=== PATIENT | female | born 1930 | race African-American/Black ===

== ENCOUNTER 2017-01-16 09:20 | Inpatient (IN) | payer MEDICARE, OTHER ==
[~2017-01-16] VITALS: Ht 165.1 cm; Wt 54.0 kg
[~2017-01-16 09:20] MED LIST: ACET325T9 PO; AMLO10TA2 PO; BACL10TA PO; CHOL400C2 PO; CRESTOR20 MG PO; DIGO125T PO; DRON400T PO; FENT1PAT17 TP; FERR325T72 PO; FURO20TA3 PO; FURO40TA4 PO; GUAI600T38 PO; Ipratropium/Albuterol Sulfate NEB; LISI-334 PO; OMEP20CA9 PO; PANT40TA5 PO; POTA10CA PO; PRAV40TA2 PO; PREN1TAB46 PO; WARF1TAB7 PO; WARF2TAB PO; WARF3TAB7 PO; WARF5TAB PO
--- NOTE | 2017-01-16 09:48 | PHYS DOC ---
Past Medical History Past Medical History: CHF, High Cholesterol, Hypertension, Stroke Past Surgical History: No Surgical History Alcohol Use: None Drug Use: None Adult General Chief Complaint Chief Complaint: NEURO SYMPTOMS/DEFICITS HPI HPI Patient is a 86 year old female who presents with weakness on the left side. Patient accompanied by family, who reports since Saturday she has been having increasing weakness on her left side which is affecting her mobility. She does have a h/o stroke but her baseline weakness in on her R side. Patient denies any other acute complaints. Review of Systems Review of Systems Constitutional: Denies fever or chills Eyes: Denies change in visual acuity or eye pain HENT: Denies nasal congestion or sore throat Respiratory: Denies cough or shortness of breath Cardiovascular: Denies chest pain GI: Denies abdominal pain, nausea, vomiting, bloody stools or diarrhea : Denies dysuria or hematuria Musculoskeletal: Denies back pain or joint pain Integument: Bed sores Neurologic: L side weakness. Denies headache, sensory changes Allergies Allergies Allergies Coded Allergies Type Severity Reaction Last Updated Verified Penicillins Allergy Intermediate Hives 02/08/15 Yes Physical Exam Physical Exam Constitutional: Well developed, well nourished, no acute distress, non-toxic appearance HENT: Normocephalic, atraumatic, bilateral external ears normal Eyes: PERRL, EOMI, conjunctiva normal, no discharge Neck: Normal range of motion, no stridor Cardiovascular: Heart rate normal, regular rhythm, murmur noted Lungs & Thorax: Bilateral breath sounds clear to auscultation Abdomen: Bowel sounds normal, soft, non-distended, no TTP Skin: Warm, dry Extremities: No obvious deformity, no edema Neurologic: Alert and oriented, GCS 15, R facial droop (baseline), strength in RUE/RLE diminished compared to LUE/LLE, sensation to light touch intact throughout Psychologic: Affect normal, judgement normal, mood normal Current Patient Data Vital Signs Vital Signs Date Time Temp Pulse Resp B/P Pulse Ox O2 Delivery O2 Flow Rate FiO2 01/16/17 10:30 60 16 112/55 100 Room Air 01/16/17 09:30 98.0 98.0 Lab Values Laboratory Tests Test 01/16/17 09:35 01/16/17 10:47 White Blood Count 5.1x10^3/uL (4.0-11.0) Red Blood Count 3.46x10^6/uL (3.50-5.40) L Hemoglobin 9.8g/dL (12.0-15.5) L Hematocrit 29.9% (36.0-47.0) L Mean Corpuscular Volume 86fL (79-100) Mean Corpuscular Hemoglobin 28pg (25-35) Mean Corpuscular Hemoglobin Concent 33g/dL (31-37) Red Cell Distribution Width 20.2% (11.5-14.5) H Platelet Count 215x10^3/uL (140-400) Neutrophils (%) (Auto) 71% (31-73) Lymphocytes (%) (Auto) 16% (24-48) L Monocytes (%) (Auto) 6% (0-9) Eosinophils (%) (Auto) 6% (0-3) H Basophils (%) (Auto) 1% (0-3) Neutrophils # (Auto) 3.6x10^3uL (1.8-7.7) Lymphocytes # (Auto) 0.8x10^3/uL (1.0-4.8) L Monocytes # (Auto) 0.3x10^3/uL (0.0-1.1) Eosinophils # (Auto) 0.3x10^3/uL (0.0-0.7) Basophils # (Auto) 0.0x10^3/uL (0.0-0.2) Platelet Estimate Adequate (ADEQUATE) Poikilocytosis Present Anisocytosis Present Prothrombin Time 35.0SEC (11.7-14.0) H Prothrombin Time INR 3.7 (0.8-1.1) H Sodium Level 145mmol/L (136-145) Potassium Level 4.0mmol/L (3.5-5.1) Chloride Level 106mmol/L (98-107) Carbon Dioxide Level 31mmol/L (21-32) Anion Gap 8 (6-14) Blood Urea Nitrogen 18mg/dL (7-20) Creatinine 2.0mg/dL (0.6-1.0) H Estimated GFR (Cockcroft-Gault) 28.5 BUN/Creatinine Ratio 9 (6-20) Glucose Level 88mg/dL (70-99) Calcium Level 9.3mg/dL (8.5-10.1) Total Bilirubin 0.4mg/dL (0.2-1.0) Aspartate Amino Transferase (AST) 39U/L (15-37) H Alanine Aminotransferase (ALT) 19U/L (14-59) Alkaline Phosphatase 63U/L (46-116) Total Protein 8.1g/dL (6.4-8.2) Albumin 3.5g/dL (3.4-5.0) Albumin/Globulin Ratio 0.8 (1.0-1.7) L Urine Collection Type Unknown Urine Color Yellow Urine Clarity Clear Urine pH 6.5 Urine Specific [place] <=1.005 Urine Protein Negativemg/dL (NEG-TRACE) Urine Glucose (UA) Negativemg/dL (NEG) Urine Ketones (Stick) Negativemg/dL (NEG) Urine Blood Negative (NEG) Urine Nitrite Negative (NEG) Urine Bilirubin Negative (NEG) Urine Urobilinogen Dipstick 0.2mg/dL (0.2 mg/dL) Urine Leukocyte Esterase Negative (NEG) Urine RBC 0/HPF (0-2) Urine WBC 0/HPF (0-4) Urine Squamous Epithelial Cells Few/LPF Urine Bacteria 0/HPF (0-FEW) Urine Hyaline Casts Occasional/HPF Urine Mucus Marked/LPF Laboratory Tests 01/16/17 09:35 Laboratory Tests 01/16/17 09:35 EKG EKG EKG (my read): sinus rhythm, rate 73, LAD, prolonged AK interval, TWI lead I/V2 , no acute ST changes Radiology/Procedures Radiology/Procedures CT head: Impression: No acute intracranial abnormality is seen. CXR: IMPRESSION: 1. Moderate cardiomegaly. 2. Stable aortic ectasia and tortuosity. Course & Med Decision Making Course & Med Decision Making Pertinent Labs and Imaging studies reviewed. (See chart for details) Patient is 86-year-old female who presents with left-sided weakness. Obvious concern for CVA. Well outside window for possible tPA. Will check CT head, chest x-ray, EKG, labs to evaluate. Labs notable for anemia (anemic at baseline) , slight elevation in creatinine over baseline, supratherapeutic INR. Imaging results as above. Discussed results with patient and family. Discussed with Dr. Kelsey (covering for Dr. Rivas), will admit under his care for further evaluation and treatment. Dragon Disclaimer Dragon Disclaimer This electronic medical record was generated, in whole or in part, using a voice recognition dictation system. Departure Departure Impression: Primary Impression: Acute left-sided weakness Disposition: ADMITTED INPATIENT Admitting Physician: Sparkle Kelsey Condition: STABLE Referrals: JOBY RIVAS (PCP) AZRA VALENCIA MD Jan 16, 2017 09:48
[2017-01-16 10:06] LABS: BASO % 1 % (0-3); EOS % 6 % (0-3); HEMATOCRIT 29.9 % (36.0-47.0); HEMOGLOBIN 9.8 g/dL (12.0-15.5); LYMPH # 0.8 x10^3/uL (1.0-4.8); LYMPH % 16 % (24-48); MEAN CORPUSCULAR HEMOGLOBIN 28 pg (25-35); MEAN CORPUSCULAR HGB CONC 33 g/dL (31-37); MEAN CORPUSCULAR VOLUME 86 fL (79-100); MONO % 6 % (0-9); NEUT % 71 % (31-73); PLATELET COUNT 215 x10^3/uL (140-400); RED BLOOD COUNT 3.46 x10^6/uL (3.50-5.40); RED CELL DISTRIBUTION WIDTH 20.2 % (11.5-14.5); WHITE BLOOD COUNT 5.1 x10^3/uL (4.0-11.0)
[2017-01-16 10:13] LABS: CALCIUM 9.3 mg/dL (8.5-10.1); GFR 28.5
[2017-01-16 10:21] LABS: ALBUMIN 3.5 g/dL (3.4-5.0); ALBUMIN/GLOBULIN RATIO 0.8 (1.0-1.7); TOTAL BILIRUBIN 0.4 mg/dL (0.2-1.0); TOTAL PROTEIN 8.1 g/dL (6.4-8.2)
[2017-01-16 10:24] LABS: INR 3.7 (0.8-1.1)
--- NOTE | 2017-01-16 10:35 | EKG ---
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
--- NOTE | 2017-01-16 10:46 | RAD ---
EXAM: Chest one view. HISTORY: Left-sided weakness. COMPARISON: 11/20/2016. FINDINGS: A frontal view of the chest is obtained. There are no confluent infiltrates. There is no pneumothorax or pleural effusion. The heart is mildly enlarged. The aorta is ectatic and tortuous, but not clearly changed in contour since the prior study. There is bilateral rotator cuff arthropathy and glenohumeral osteoarthritis. IMPRESSION: 1. Moderate cardiomegaly. 2. Stable aortic ectasia and tortuosity.
--- NOTE | 2017-01-16 10:47 | RAD ---
CT scan of the head without contrast 01/16/2017 Clinical History: Left-sided weakness.. Technique: Unenhanced, contiguous, 5 mm axial sections were obtained through the head. One or more of the following individualized dose reduction techniques were utilized for this study: 1. Automated exposure control. 2. Adjustment of the mA and/or kV according to patient size. 3. Use of iterative reconstruction technique. Findings: Comparison study is dated 03/25/2011. There is generalized parenchymal atrophy. Small scattered areas of decreased attenuation are seen within the periventricular and subcortical white matter of both cerebral hemispheres consistent with areas of small vessel ischemic disease. An area of encephalomalacia is seen involving the superior right cerebellar hemisphere. This measures 3.2 cm in size. An old area of lacunar infarction is seen involving the left lenticular nucleus. This measures 1.2 cm in size. No acute parenchymal abnormality is seen. No extra-axial fluid collection is noted. Impression: No acute intracranial abnormality is seen.
[2017-01-16 11:00] LABS: ANISOCYTOSIS PRESENT
[2017-01-16 11:01] LABS: POIKILOCYTOSIS PRESENT
[2017-01-16 11:02] LABS: BILIRUBIN,URINE NEGATIVE (NEG); GLUCOSE,URINE NEGATIVE (NEG); NITRITE,URINE NEGATIVE (NEG); PH,URINE 6.5; PROTEIN,URINE NEGATIVE (NEG-TRACE); UROBILINOGEN,URINE 0.2 mg/dL (0.2 mg/dL)
[2017-01-16 11:14] LABS: BACTERIA,URINE 0 /HPF (0-FEW); RBC,URINE 0 /HPF (0-2); SQUAMOUS EPITHELIAL CELL,UR FEW /LPF; WBC,URINE 0 /HPF (0-4)
[2017-01-16 11:17] LABS: PLT ESTIMATE ADEQUATE (ADEQUATE)
[2017-01-16] MEDS ORDERED: ONDANSETRON PF 4 MG/2 ML VIAL. IV PRN (11:45)
[2017-01-16] MEDS ORDERED: ACETAMINOPHEN 325 MG TABLET. PO PRN ×2 (11:45→17:30)
--- NOTE | 2017-01-16 13:39 | ACF ---
Admission Forms Criteria NEUROLOGY GRG Clinical Indications for Admission to Inpatient Care (Place ' X' for any and all applicable criteria): Hospital admission is needed for appropriate care of the patient because of ANY ONE of the following: [ ]I. New-onset or worsening altered mental status remaining after emergency or observation level care (as appropriate) (9)(10)(11) [ ]II. Severe [employer] infections or inflammatory conditions, including ANY ONE of the following(1)(2)(3): [ ]a) Intracranial abscess [ ]b) Spinal abscess or myelitis [ ]c) Tuberculous or other nonbacterial, nonviral [employer] infection(8) [ ]III. Encephalitis(1)(2)(3) [ ]IV. Status epilepticus or repetitive seizures not controlled with emergent treatment [A] (7)(8) [ ]V. Transient alteration in consciousness with high-risk etiology; examples include (12)(13): [ ]a) Cardiovascular source [ ]b) Cataplexy [ ]. Cerebral aneurysm requiring ANY ONE of the following(14): [ ]a) IV antihypertensives or vasoactive agents [ ]b) Sedation and analgesia for suspected leak [ ]c) Need for external ventricular drainage and cerebral perfusion pressure monitoring [ ]d) Emergent evaluation to determine need for surgical clipping or endovascular coiling by interventional radiology. If surgery is required ( Also use Craniotomy, Supratentorial, for Surgery of Bleeding Intracranial Aneurysm (for bleeding aneurysm) or Craniotomy, Supratentorial (for nonbleeding aneurysm) as appropriate. [ ]VII. Altered mental status that is severe or persistent(16) [ ]VIII New-onset severe neurologic findings requiring inpatient care; examples include: [ ]a) Papilledema [ ]b) Cerebral edema [ ]c) Mass effect on imaging [X]IX. New-onset severe neurologic symptom requiring inpatient care indicated by ANY ONE of the following: [ ]a) Aphasia(15) [ ]b) Weakness (grade 3 or less) [ ]c) Paralysis (eg, hemiplegia) [ ]d) Spasticity(16) [ ]e) Ataxia(17) [ ]f) Amnesia(18) [ ]g) Involuntary movements(19) [ ]h) Vertigo [X]i) Other severe neurologic symptom not treatable at alternative level of care (eg, observation care) [ ]X. Guillain-Clinton syndrome(20) [ ]XI. Myasthenia gravis crisis or inpatient monitoring need as indicated by ANY ONE of the following(21): [ ]a) Inadequate airway protection [ ]b) Respiratory insufficiency requiring intubation or inpatient. monitoring [ ]c) Progressive dysphagia with failure to thrive [ ]d) Intensive treatment (eg, course of plasmapheresis) with inadequate outpatient situation to monitor patients status [ ]XII. Multiple sclerosis or other acute demyelinating disease requiring inpatient care as indicated by ANY ONE of the following (22)(23): [ ]a) Acute severe deterioration requiring inpatient treatment (eg, IV steroids, plasmapheresis, close observation) [ ]b) Acute complication requiring inpatient care (eg, sepsis, severe decubitus, aspiration) [ ]XIII. Intracranial hypertension (eg, pseudotumor cerebri) requiring inpatient care (eg, acute visual loss, inadequate oral intake) (24) [ ]XIV.Parkinson disease requiring inpatient care (Also use Optimal Recovery Care Criteria or General Recovery Criteria as appropriate) indicated by ANY ONE of the following(25): [ ]a) Infection (eg, aspiration pneumonia) not treatable at alternative level of care [ ]b) Volume depletion not responsive to emergency and observation care treatment (as appropriate) [ ]c) Life-threatening agitation or psychotic behavior not treatable on emergency, observation care, or alternative level (eg, residential) basis [ ]d) Severe medication withdrawal effects (eg, freezing, neuroleptic malignant syndrome) not responsive to emergency and observation care treatment (as appropriate) [ ]e) Other severe manifestation not treatable at alternative level of care [ ]XV.Amyotrophic lateral sclerosis with inpatient care needs as indicated by ANY ONE of the following(26): [ ]a) Acute complications requiring inpatient care (Use Optimal Recovery Care Criteria or General Recovery Criteria as appropriate); examples include: [ ]i) Aspiration pneumonia [ ]ii) Sepsis [ ]b) Dehydration or hypovolemia (not responsive to emergency and observation care treatment as appropriate) AND artificial support desired [ ]c) Inadequate airway protection AND artificial support desired [ ]d) Severe ventilatory insufficiency AND artificial support desired [ ]XVI.Severe myopathy, neuropathy, or other neuromuscular disease as indicated by ANY ONE of the following: [ ]a) New-onset severe diffuse weakness (eg, strength 3/5 or less) [ ]b) Severe dysphagia [ ]c) Dyspnea at rest or with minimal exertion (new) [ ]d) Inadequate airway protection [ ]e) Inadequate ventilation as indicated by ANY ONE of the following : [ ]i) Partial pressure of carbon dioxide greater than 44 mm Hg (5.9 kPa) (new) [ ]ii) Reduced peak expiratory flow rate (new) [ ]iii) Vital capacity less than 50% of predicted ( less than 15 mL/kg) [ ]iv) Peak inspiratory force less negative than -30 cm H20 (-2942 Pa) [ ]XVII.Complications of congenital or degenerative disease (eg, infection, seizures, dehydration, injury) not responsive to emergency and observation care treatment (as appropriate ) [C](16)(29)(30) [ ]XVIII.Suspected or confirmed nerve or muscle toxic injury, including ANY ONE of the following: [ ]a) Rhabdomyolysis(31) [ ]b) Botulism(32) [ ]c) Other severe toxin-induced sign or symptom [ ]XIX. Neurologic trauma requiring inpatient treatment (medical) indicated by ANY ONE of the following(33)(34): [ ]a) Vital signs or neurologic signs more frequently than every 4 hours [ ]b) Hyperosmolar therapy [ ]c) Respiratory monitoring [ ]d) Intracranial pressure monitoring and treatment [ ]e) Stabilization and immobilization device placement (eg, braces, body jacket) [ ]f) Intubation & mechanical ventilation for airway protection or therapeutic hyperventilation [ ]g) Other treatment or monitoring needed that requires inpatient level of care [ ]XX.Complications of neurologic devices (eg, ventricular shunt, neurostimulator) requiring ANY ONE of the following(35)(36): [ ]a) IV antibiotics with monitoring while awaiting culture results [ ]b) Monitoring for hydrocephalus [ ]XXI Vasculitis with ANY ONE of the following(4)(5): [ ]a) Altered mental status [ ]b) Psychosis [ ]c) Seizures [ ]XXII. Neurology condition and ALL of the following: [ ]a) Symptom or finding for which emergency and observation care have failed or are not considered appropriate (Use General Criteria: Observation Care as appropriate) [ ]b) Presence of ANY ONE of the following: [ ]i) A General Admission Criteria [ ]ii A Pediatric General Admission Criteria The original [facility] content created by Henrik Luis has been revised. The portions of the content which have been revised are identified through the use of italic text or in bold, and [facility] has neither reviewed nor approved the modified material. All other unmodified content is copyright [facility] Please see references footnoted in the original [facility] edition 2016 Admission Criteria Met?: Yes DASHA HEMPHILL Jan 16, 2017 13:39
[2017-01-16 13:40] VITALS: BP 129/73
[2017-01-16] MEDS ORDERED: WARF2TAB7 PO (14:15)
[2017-01-16] MEDS ORDERED: ATOR10TA60 PO (14:15)
[2017-01-16] MEDS ORDERED: FURO20TA3 PO (14:15)
[2017-01-16 14:30] VITALS: BP 112/56
--- NOTE | 2017-01-16 17:11 | RAD ---
Bilateral carotid arterial duplex study 01/16/2017 Clinical History: CVA. Technique: Using a combination of real-time ultrasound imaging and color-flow and pulse Doppler imaging techniques, duplex evaluation of the carotid and vertebral arterial structures within the neck was performed. Multiple images were obtained. Stenosis calculations for carotid ultrasound are based on validated velocity criteria which are known to correlate with the NASCET methodology. Findings: Mild atheromatous/atherosclerotic plaque formation is seen involving both carotid bifurcations. The peak systolic velocities are not significantly elevated. No hemodynamically significant stenosis is seen. The vertebral arteries demonstrate normal antegrade flow. Impression: Mild atheromatous/atherosclerotic plaque formation is seen involving both carotid bifurcations. No hemodynamically significant stenosis is seen. Please note that stenosis calculations for carotid ultrasound studies are derived from validated velocity criteria which are known to correlate with the NASCET methodology.
[2017-01-16] MEDS: POTASSIUM CHLORIDE 10 MEQ TABLET.ER. PO SCH (18:15)
[2017-01-16] MEDS: DRONEDARONE HCL 400 MG TABLET PO SCH (18:15)
[2017-01-16] MEDS: FENTANYL 50MCG/HR PATCH. TD SCH (18:16)
--- NOTE | 2017-01-16 18:29 | PDOC2 ---
NEUROLOGY CONSULT Date of Admission Date of Admission DATE: 01/16/17 TIME: 18:19 Reason for Consult Reason for Consult: IMPRESSION: Left side weakness x 2 days. 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 CHF HTN HLD Aortic A disease. RECOMMENDATIONS/PLAN: MRI w/o contrast. She has been treated with Coumadin. Continue Lipitor 10 mg HS. Fasting lipids in am. Echo. Carotid A US + Doppler. OT/PT. Discussed with her son at bedside. HISTORY OF THE PRESENT ILLNESS: 86-y-old female patient with old CVA with right side hemiplegia and spasm. She developed symptoms of weakness in her left side this time for about 2 days to be brought to the ER of [facility]. PAST MEDICAL HISTORY: Please see above. PAST SURGERY HISTORY: No major surgery recently. ALLERGY: Unknown MEDICATIONS: Refer to [facility] FAMILY HISTORY: Non contributory. SOCIAL HISTORY: Lives at home.. Denies current smoking, drinking, and illicit drug use. REVIEW OF SYSTEMS: Constitutional: No malnutrition, weight loss, cachexia. Head: No traumatic brain or head injury. Skin: No edema, or rash. Ear: No infection, tinnitus. Eyes: No vision loss or color blindness. Nose: No bleeding or purulent discharges. Hearing: Hearing decrease. Neck: No injury. Breast: No history of cancer, masses,or discharges. Cardiac: CHF, HTN, HLD. Pulmonary: No COPD. GI: No GI ulcer, GI bleeding. Urinary/genital: UTI. Endocrinologic: No cousin face, craniofacial dysmorphism, polydactyly. Skeletomuscular: Generalized weakness. Neurological: see HP. Psychiatric: Denies drug use/abuse. Otherwise, not [id number] review of systems. PHYSICAL EXAMINATION: General appearance is in subacute distress. HEENT: Normocephalic and nontraumatic. Eyes, nose, ears, and throat are unremarkable. Neck is supple. No lymphadenopathy. No crepitus. Cardiovascular: S1, S2, seemed regular rate and rhythm. Pulmonary: Clear to auscultation bilaterally. Abdomen: Bowel sounds are positive. Abdomen is soft, nontender, and nondistended. Extremities: No rash, lesions, or edema. No restriction of range of motion NEUROLOGICAL EXAMINATION: Awake. Oriented to place and person but to time. PERRL. EOMI. CN: no focal findings. Muscle tone: within normal in left side, increased in right side. Muscle strength: 4- right side, 3 left side. DTR: 1-2 Plantar reflex: Neutral response bilaterally Gait: not examined in bed. Sensory exam: no acute abnormal findings. Not able to access cerebellar signs due to unable to follow commands. F-T-N test not performed. Current Medications Current Medications Current Medications Ondansetron HCl (Zofran) 4 mg PRN Q8HRS PRN IV NAUSEA/VOMITING; Start 01/16/17 at 11:45; Stop 01/17/17 at 11:44 Acetaminophen (Tylenol) 650 mg PRN Q4HRS PRN PO FEVER; Start 01/16/17 at 11:45; Stop 01/17/17 at 11:44 Acetaminophen (Tylenol) 325 mg PRN Q6HRS PRN PO PAIN; Start 01/16/17 at 17:30 Amlodipine Besylate (Norvasc) 10 mg DAILY PO ; Start 01/17/17 at 09:00 Atorvastatin Calcium (Lipitor) 10 mg HS PO ; Start 01/16/17 at 21:00 Baclofen (Lioresal) 10 mg HS PO ; Start 01/16/17 at 21:00 Digoxin (Lanoxin) 125 mcg DAILY PO ; Start 01/17/17 at 09:00 Dronedarone (Multaq) 400 mg BIDACLD PO Last administered on 01/16/17 18:15; Start 01/16/17 at 18:00 Fentanyl (Duragesic 50mcg/ Hr Patch) 1 patch Q3DAYS TD Last administered on 01/16 18:16; Start 01/16/17 at 18:00 Ferrous Sulfate (Feosol) 325 mg DAILYWBKFT PO ; Start 01/17/17 at 08:00 Furosemide (Lasix) 20 mg DAILY PO ; Start 01/17/17 at 09:00 Lisinopril (Prinivil) 10 mg DAILY PO ; Start 01/17/17 at 09:00 Pantoprazole Sodium (Protonix) 40 mg DAILY PO ; Start 01/17/17 at 09:00 Warfarin Sodium (Coumadin) 3 mg DAILY16 PO ; Start 01/17/17 at 16:00 Vitamin D (Vitamin D3) 500 unit DAILY PO ; Start 01/17/17 at 09:00 Potassium Chloride (Klor-Con) 10 meq BIDWMEALS PO Last administered on t 18:15; Start 01/16/17 at 18:00 Non-Formulary Medication 1 tab QHS PO ; Start 01/16/17 at 21:00; Status UNV Prenat Multivit/ [place]/Iron/Folic Ac (Multivitamin ) 1 tab DAILY PO ; Start 01/17/17 at 09:00 Non-Formulary Medication 3 ml RTQID NEB ; Start 01/16/17 at 20:00; Status UNV Albuterol/ Ipratropium (Duoneb) 3 ml RTQID NEB ; Start 01/16/17 at 20:00 Warfarin Sodium (Coumadin Per Physician) 1 each PRN DAILY PRN MC SEE COMMENTS; Start 01/16/17 at 18:00 Active Scripts Active [Ipratropium/Albuterol Sulfate] 3 ML Nebu 3 Ml NEB RTQID Feosol (Ferrous Sulfate) 325 Mg Tablet 325 Mg PO DAILYWBKFT Reported Furosemide 20 Mg Tablet 1 Tab PO DAILY Warfarin Sodium 2 Mg Tablet 2.5 Mg PO DAILY Atorvastatin Calcium 10 Mg Tablet 10 Mg PO HS Pantoprazole Sodium 40 Mg Tablet.dr 40 Mg PO DAILY Warfarin Sodium 3 Mg Tablet 3 Mg PO DAILY FENTANYL 50mcg/hr (Fentanyl) 1 Each Patch.td72 1 Patch TP Q3DAYS Pravastatin Sodium 40 Mg Tablet 1 Tab PO QHS Vitamin D (Cholecalciferol (Vitamin D3)) 400 Unit Capsule 400 Unit PO DAILY One Tablet ( Vit #108/Iron/Fa) 1 Each Tablet 1 Each PO DAILY Tylenol (Acetaminophen) 325 Mg Tablet 325 Mg PO PRN Q6HRS PRN Potassium Chloride 10 Meq Capsule.er 10 Meq PO BID Multaq (Dronedarone Hcl) 400 Mg Tablet 400 Mg PO BIDACLD Amlodipine Besylate 10 Mg Tablet 10 Mg PO DAILY Digoxin 125 Mcg Tablet 125 Mcg PO DAILY Baclofen 10 Mg Tablet 10 Mg PO HS Lisinopril 20 Mg Tablet 10 Mg PO DAILY Allergies Allergies: Coded Allergies: Penicillins (Verified Allergy, Intermediate, Hives, 02/08/15) Vitals VITALS Vital Signs Date Time Temp Pulse Resp B/P Pulse Ox O2 Delivery O2 Flow Rate FiO2 01/16/17 18:16 18 98 Room Air 01/16/17 18:15 72 112/56 01/16/17 14:30 98.1 98.1 Labs Labs Laboratory Tests Test 01/16/17 09:35 01/16/17 10:47 White Blood Count 5.1x10^3/uL (4.0-11.0) Red Blood Count 3.46x10^6/uL (3.50-5.40) Hemoglobin 9.8g/dL (12.0-15.5) Hematocrit 29.9% (36.0-47.0) Mean Corpuscular Volume 86fL (79-100) Mean Corpuscular Hemoglobin 28pg (25-35) Mean Corpuscular Hemoglobin Concent 33g/dL (31-37) Red Cell Distribution Width 20.2% (11.5-14.5) Platelet Count 215x10^3/uL (140-400) Neutrophils (%) (Auto) 71% (31-73) Lymphocytes (%) (Auto) 16% (24-48) Monocytes (%) (Auto) 6% (0-9) Eosinophils (%) (Auto) 6% (0-3) Basophils (%) (Auto) 1% (0-3) Neutrophils # (Auto) 3.6x10^3uL (1.8-7.7) Lymphocytes # (Auto) 0.8x10^3/uL (1.0-4.8) Monocytes # (Auto) 0.3x10^3/uL (0.0-1.1) Eosinophils # (Auto) 0.3x10^3/uL (0.0-0.7) Basophils # (Auto) 0.0x10^3/uL (0.0-0.2) Platelet Estimate Adequate (ADEQUATE) Poikilocytosis Present Anisocytosis Present Prothrombin Time 35.0SEC (11.7-14.0) Prothromb Time International Ratio 3.7 (0.8-1.1) Sodium Level 145mmol/L (136-145) Potassium Level 4.0mmol/L (3.5-5.1) Chloride Level 106mmol/L (98-107) Carbon Dioxide Level 31mmol/L (21-32) Anion Gap 8 (6-14) Blood Urea Nitrogen 18mg/dL (7-20) Creatinine 2.0mg/dL (0.6-1.0) Estimated GFR (Cockcroft-Gault) 28.5 BUN/Creatinine Ratio 9 (6-20) Glucose Level 88mg/dL (70-99) Calcium Level 9.3mg/dL (8.5-10.1) Total Bilirubin 0.4mg/dL (0.2-1.0) Aspartate Amino Transf (AST/SGOT) 39U/L (15-37) Alanine Aminotransferase (ALT/SGPT) 19U/L (14-59) Alkaline Phosphatase 63U/L (46-116) Creatine Kinase 487U/L (26-192) Total Protein 8.1g/dL (6.4-8.2) Albumin 3.5g/dL (3.4-5.0) Albumin/Globulin Ratio 0.8 (1.0-1.7) Vitamin B12 Level 757pg/mL (247-911) Thyroid Stimulating Hormone (TSH) 2.023uIU/mL (0.358-3.74) Urine Collection Type Unknown Urine Color Yellow Urine Clarity Clear Urine pH 6.5 Urine Specific [place] <=1.005 Urine Protein Negativemg/dL (NEG-TRACE) Urine Glucose (UA) Negativemg/dL (NEG) Urine Ketones (Stick) Negativemg/dL (NEG) Urine Blood Negative (NEG) Urine Nitrite Negative (NEG) Urine Bilirubin Negative (NEG) Urine Urobilinogen Dipstick 0.2mg/dL (0.2 mg/dL) Urine Leukocyte Esterase Negative (NEG) Urine RBC 0/HPF (0-2) Urine WBC 0/HPF (0-4) Urine Squamous Epithelial Cells Few/LPF Urine Bacteria 0/HPF (0-FEW) Urine Hyaline Casts Occasional/HPF Urine Mucus Marked/LPF Laboratory Tests Test 01/16/17 09:35 01/16/17 10:47 White Blood Count 5.1x10^3/uL (4.0-11.0) Red Blood Count 3.46x10^6/uL (3.50-5.40) Hemoglobin 9.8g/dL (12.0-15.5) Hematocrit 29.9% (36.0-47.0) Mean Corpuscular Volume 86fL (79-100) Mean Corpuscular Hemoglobin 28pg (25-35) Mean Corpuscular Hemoglobin Concent 33g/dL (31-37) Red Cell Distribution Width 20.2% (11.5-14.5) Platelet Count 215x10^3/uL (140-400) Neutrophils (%) (Auto) 71% (31-73) Lymphocytes (%) (Auto) 16% (24-48) Monocytes (%) (Auto) 6% (0-9) Eosinophils (%) (Auto) 6% (0-3) Basophils (%) (Auto) 1% (0-3) Neutrophils # (Auto) 3.6x10^3uL (1.8-7.7) Lymphocytes # (Auto) 0.8x10^3/uL (1.0-4.8) Monocytes # (Auto) 0.3x10^3/uL (0.0-1.1) Eosinophils # (Auto) 0.3x10^3/uL (0.0-0.7) Basophils # (Auto) 0.0x10^3/uL (0.0-0.2) Platelet Estimate Adequate (ADEQUATE) Poikilocytosis Present Anisocytosis Present Prothrombin Time 35.0SEC (11.7-14.0) Prothromb Time International Ratio 3.7 (0.8-1.1) Sodium Level 145mmol/L (136-145) Potassium Level 4.0mmol/L (3.5-5.1) Chloride Level 106mmol/L (98-107) Carbon Dioxide Level 31mmol/L (21-32) Anion Gap 8 (6-14) Blood Urea Nitrogen 18mg/dL (7-20) Creatinine 2.0mg/dL (0.6-1.0) Estimated GFR (Cockcroft-Gault) 28.5 BUN/Creatinine Ratio 9 (6-20) Glucose Level 88mg/dL (70-99) Calcium Level 9.3mg/dL (8.5-10.1) Total Bilirubin 0.4mg/dL (0.2-1.0) Aspartate Amino Transf (AST/SGOT) 39U/L (15-37) Alanine Aminotransferase (ALT/SGPT) 19U/L (14-59) Alkaline Phosphatase 63U/L (46-116) Creatine Kinase 487U/L (26-192) Total Protein 8.1g/dL (6.4-8.2) Albumin 3.5g/dL (3.4-5.0) Albumin/Globulin Ratio 0.8 (1.0-1.7) Vitamin B12 Level 757pg/mL (247-911) Thyroid Stimulating Hormone (TSH) 2.023uIU/mL (0.358-3.74) Urine Collection Type Unknown Urine Color Yellow Urine Clarity Clear Urine pH 6.5 Urine Specific [place] <=1.005 Urine Protein Negativemg/dL (NEG-TRACE) Urine Glucose (UA) Negativemg/dL (NEG) Urine Ketones (Stick) Negativemg/dL (NEG) Urine Blood Negative (NEG) Urine Nitrite Negative (NEG) Urine Bilirubin Negative (NEG) Urine Urobilinogen Dipstick 0.2mg/dL (0.2 mg/dL) Urine Leukocyte Esterase Negative (NEG) Urine RBC 0/HPF (0-2) Urine WBC 0/HPF (0-4) Urine Squamous Epithelial Cells Few/LPF Urine Bacteria 0/HPF (0-FEW) Urine Hyaline Casts Occasional/HPF Urine Mucus Marked/LPF KEILA DESIR MD Jan 16, 2017 18:29
[2017-01-16 19:00] VITALS: BP 120/55
[2017-01-16] MEDS: IPRATRPIUM/ALBUTEROL 0.5/2.5MG 3 ML NEBU. NEB SCH (19:19)
[2017-01-16] MEDS ORDERED: NON FORMULARY ITEM ([Ipratropium/Albuterol Sulfate] 3 ML) NEB SCH (20:00)
[2017-01-16] MEDS ORDERED: NON FORMULARY ITEM (Pravastatin Sodium 1 TAB) PO SCH (21:00)
[2017-01-16] MEDS: BACLOFEN 10 MG TABLET PO SCH (21:06)
[2017-01-16] MEDS: ATORVASTATIN CALCIUM 10 MG TABLET. PO SCH (21:06)
[2017-01-16 23:00] VITALS: BP 109/63
[2017-01-17] VITALS (7 sets, daily range): BP systolic 100–140; BP diastolic 48–66
[2017-01-17 05:19] LABS: BASO % 1 % (0-3); EOS % 12 % (0-3); HEMATOCRIT 25.1 % (36.0-47.0); HEMOGLOBIN 8.3 g/dL (12.0-15.5); LYMPH # 0.9 x10^3/uL (1.0-4.8); LYMPH % 23 % (24-48); MEAN CORPUSCULAR HEMOGLOBIN 29 pg (25-35); MEAN CORPUSCULAR HGB CONC 33 g/dL (31-37); MEAN CORPUSCULAR VOLUME 86 fL (79-100); MONO % 9 % (0-9); NEUT % 56 % (31-73); PLATELET COUNT 161 x10^3/uL (140-400); RED BLOOD COUNT 2.91 x10^6/uL (3.50-5.40); RED CELL DISTRIBUTION WIDTH 19.7 % (11.5-14.5); WHITE BLOOD COUNT 4.1 x10^3/uL (4.0-11.0)
[2017-01-17 05:41] LABS: CALCIUM 8.5 mg/dL (8.5-10.1); CREATININE 1.6 mg/dL (0.6-1.0); GFR 36.9; POTASSIUM 3.9 mmol/L (3.5-5.1)
[2017-01-17 06:08] LABS: CHOLESTEROL/HDL RATIO 1.8
[2017-01-17] MEDS: IPRATRPIUM/ALBUTEROL 0.5/2.5MG 3 ML NEBU. NEB SCH ×4 (07:45→19:37)
--- NOTE | 2017-01-17 08:04 | RAD ---
PROCEDURE Brain MRI without contrast. HISTORY Left-sided weakness. TECHNIQUE Multiplanar and multi sequence magnetic resonance imaging of the brain was performed without contrast. COMPARISON None. FINDINGS There is no restricted diffusion to suggest acute or subacute infarction. There is no mass effect or midline shift. There is no hydrocephalus. There are chronic infarcts within the posterior left putamen and adjacent periventricular white matter, bilateral thalami and right cerebellum. There are extensive scattered areas of signal change throughout the cerebral white matter and roddy, a nonspecific finding. There are findings consistent with lens surgery. There is left frontal,, left ethmoid, left maxillary and sphenoid sinus mucosal thickening. There is a tiny amount of fluid within the left mastoid air cells. There are normal flow voids within the cerebral vessels. IMPRESSION 1. No acute intracranial finding. 2. Chronic infarct within the left basal ganglia and adjacent periventricular white matter, bilateral thalami and right cerebellum. 3. Extensive areas of signal change throughout the cerebral white and roddy, a nonspecific finding likely due to chronic small vessel disease. 4. Cerebral volume loss. Electronically signed by: Krystle Sparks (Jan 17, 2017 08:02:51)
[2017-01-17] MEDS: FERROUS SULFATE 325 MG TABLET PO SCH (09:28)
[2017-01-17] MEDS: FUROSEMIDE 20 MG TABLET PO SCH (09:28)
[2017-01-17] MEDS: PRENATAL MULTIVITAMIN TABLET. PO SCH (09:28)
[2017-01-17] MEDS: POTASSIUM CHLORIDE 10 MEQ TABLET.ER. PO SCH ×2 (09:28→16:08)
[2017-01-17] MEDS: LISINOPRIL 20 MG TABLET PO SCH (09:29)
[2017-01-17] MEDS: AMLODIPINE BESYLATE 10 MG TABLET PO SCH (09:30)
[2017-01-17] MEDS: DIGOXIN 125 MCG TABLET PO SCH (09:30)
[2017-01-17] MEDS: CHOLECALCIFEROL (VITAMIN D3) 1,000 UNIT TABLET PO SCH (09:31)
[2017-01-17] MEDS: PANTOPRAZOLE 40 MG TABLET. PO SCH (09:31)
--- NOTE | 2017-01-17 10:29 | PDOC ---
Provider Note Provider Note H&P dictated. #[id number] ELYSSA CHU MD Jan 17, 2017 10:29
[2017-01-17 11:08] LABS: INR 3.5 (0.8-1.1); PROTHROMBIN TIME PATIENT 33.3 SEC (11.7-14.0)
[2017-01-17] MEDS: IV NORMAL SALINE 1000ML BAG 1,000 ML IV SCH (11:30)
[2017-01-17] MEDS: DRONEDARONE HCL 400 MG TABLET PO SCH ×2 (11:30→16:07)
--- NOTE | 2017-01-17 12:47 | HP ---
ADMIT DATE: 01/16/2017 PATIENT LOCATION: [facility] ATTENDING PHYSICIAN: Dr. Chu. PRIMARY CARE PHYSICIAN: Dr. Jung. REASON FOR ADMISSION TO THE HOSPITAL: Left-sided weakness, which is new. The patient has old CVA on the right side. HISTORY OF PRESENT ILLNESS: The patient is an 86-year-old female. The patient has a history of a stroke, AFib, on Coumadin, has a previous stroke on the right side with contracture of the right upper extremity. She was noticed to have more weakness in the left side, left arm tingling, numbness, weakness, came to the Emergency Room. CT head did not show any new stroke, was admitted to the hospital. Neurology was consulted. MRI is being done. PAST MEDICAL HISTORY: History of stroke, AFib, hypertension, hyperlipidemia, CHF. PAST SURGICAL HISTORY: Denies any major surgeries. Patient had an echocardiogram in 11/2016, ejection fraction 70%, diastolic dysfunction, moderate to severe mitral regurgitation. Total knee replacement on the right, cataracts removed from both eyes. ALLERGIES: PENICILLIN CAUSES HIVES. MEDICATIONS : Amlodipine 10 mg, baclofen 10 mg, digoxin 125 mcg, Multaq 400 mg twice a day, fentanyl patch daily, iron 325, Lasix 40 mg, Prinivil 20 mg, Protonix 40 mg, Coumadin anywhere from 3-5 mg, vitamin D 400 units daily, potassium 10 mEq daily, pravastatin 30 mg daily, ____ one daily, DuoNeb 4 times daily. PERSONAL HISTORY: Smoked for years, has stopped smoking now, no alcohol. Lives at home. 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 FAMILY HISTORY: Hypertension, heart disease. REVIEW OF SYSTEMS: CARDIAC: No chest pain. GASTROINTESTINAL: No nausea or vomiting. EXTREMITIES: Has some weakness in the left arm. PULMONARY: No cough or shortness of breath. The rest of the 14-system was reviewed and negative. PHYSICAL EXAMINATION: VITAL SIGNS: At the time of admission shows temperature of 98, pulse 60, respirations 18, blood pressure 119/63, 100% on room air. HEENT: Head is atraumatic. Pupils equal. Oral cavity: Dentures. NECK: Supple. Thyroid not enlarged. JVD not elevated. CHEST: Symmetrical. CARDIOVASCULAR: S1, S2. LUNGS: Clear to auscultation, no wheezing. She has a murmur 3/6 at the mitral area. ABDOMEN: Soft, bowel sounds present, no mass palpable. EXTERNAL GENITALIA: No Curry. RECTAL: Deferred. EXTREMITIES: Right upper arm contractures, no weakness in the left arm, has some weakness in the right lower leg. Left leg, no weakness noted. Pulses 1+. SKIN: Normal skin turgor. LYMPH NODES: No significant lymphadenopathy. LABORATORY DATA: White count 5, hemoglobin 10, platelets 215. Electrolytes show sodium 145, potassium 4.0, chloride 106, bicarbonate 31, BUN 18, creatinine 2.0. LFTs were normal. Creatinine came down to 1.6 today. B12 is 757, TSH 2. Cholesterol 141. Urine was negative for infection. INR was 3.7. Chest x-ray: Moderate cardiomegaly, no infiltrates. Head CT: No acute abnormality. Carotid Doppler: No significant stenosis. FINAL IMPRESSION: 1. Left-sided weakness, which is new, possibility of CVA. 2. 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 3. Chronic atrial fibrillation, on Coumadin. 4. Hypertension. 5. Hyperlipidemia. 6. Mitral regurgitation, moderate. PLAN: At this time, admit to hospital, seen by Neurology. MRI scheduled, PT, OT and rehab consult and see how she does. ELYSSA CHU MD DR: NATY/humza JOB#: [id number] / [id number] JOBY Forte
--- NOTE | 2017-01-17 15:04 | PDOC ---
PROGRESS NOTES Assessment Assessment Left side weakness x 2 days before admission. 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 CHF HTN HLD Aortic A disease. Pulmonary A hypertension. No evidence of acute CVA this time. RECOMMENDATIONS/PLAN: She has been treated with Coumadin. Continue Lipitor 10 mg HS. OT/PT. Discussed with her son at bedside on 01/16. MRI w/o contrast: No acute stroke this time. Echo: No high grade stenosis. Echo on 11/19/16: Pulmonary A pressure 42 HISTORY OF THE PRESENT ILLNESS: 86-y-old female patient with old CVA with right side hemiplegia and spasm. She developed symptoms of weakness in her left side this time for about 2 days to be brought to the ER of [facility]. Her left side weakness significantly improved on 01/17. PAST MEDICAL HISTORY: Please see above. PAST SURGERY HISTORY: No major surgery recently. ALLERGY: Unknown MEDICATIONS: Refer to [facility] FAMILY HISTORY: Non contributory. SOCIAL HISTORY: Lives at home.. Denies current smoking, drinking, and illicit drug use. REVIEW OF SYSTEMS: Constitutional: No malnutrition, weight loss, cachexia. Head: No traumatic brain or head injury. Skin: No edema, or rash. Ear: No infection, tinnitus. Eyes: No vision loss or color blindness. Nose: No bleeding or purulent discharges. Hearing: Hearing decrease. Neck: No injury. Breast: No history of cancer, masses,or discharges. Cardiac: CHF, HTN, HLD. Pulmonary: No COPD. GI: No GI ulcer, GI bleeding. Urinary/genital: UTI. Endocrinologic: No cousin face, craniofacial dysmorphism, polydactyly. Skeletomuscular: Generalized weakness. Neurological: see HP. Psychiatric: Denies drug use/abuse. Otherwise, not [id number] review of systems. PHYSICAL EXAMINATION: General appearance is in subacute distress. HEENT: Normocephalic and nontraumatic. Eyes, nose, ears, and throat are unremarkable. Neck is supple. No lymphadenopathy. No crepitus. Cardiovascular: S1, S2, seemed regular rate and rhythm. Pulmonary: Clear to auscultation bilaterally. Abdomen: Bowel sounds are positive. Abdomen is soft, nontender, and nondistended. Extremities: No rash, lesions, or edema. No restriction of range of motion NEUROLOGICAL EXAMINATION: Awake. Oriented to place and person but to time. PERRL. EOMI. CN: no focal findings. Muscle tone: within normal in left side, increased in right side. Muscle strength: 4. DTR: 1-2 Plantar reflex: Neutral response bilaterally Gait: not examined in bed. Sensory exam: no acute abnormal findings. Not able to access cerebellar signs due to unable to follow commands. F-T-N test not performed. Objective Objective Vital Signs Date Time Temp Pulse Resp B/P Pulse Ox O2 Delivery O2 Flow Rate FiO2 01/17/17 11:56 Room Air 01/17/17 11:30 67 123/63 01/17/17 11:00 97.9 17 100 97.9 Intake and Output 01/17/17 07:00 Intake Total 540 ml Balance 540 ml Intake Oral 540 ml # Voids 2 Vitals Signs Vitals VS - Last 72 Hours, by Label Date Time Temp Pulse Resp B/P Pulse Ox O2 Delivery O2 Flow Rate FiO2 01/17/17 11:56 Room Air 01/17/17 11:30 67 123/63 01/17/17 11:00 97.9 61 17 123/66 100 Room Air 97.9 01/17/17 09:30 67 124/63 01/17/17 09:30 67 124/63 01/17/17 09:29 67 124/63 01/17/17 07:47 99 Room Air 01/17/17 07:00 97.9 66 17 140/66 97 Room Air 97.9 01/17/17 03:24 97.5 58 20 124/63 97 Room Air 97.5 01/16/17 23:00 97.7 63 20 109/63 96 Room Air 97.7 01/16/17 22:16 Room Air 01/16/17 20:00 Room Air 01/16/17 19:22 Room Air 01/16/17 19:00 98.1 66 20 120/55 98 Room Air 98.1 01/16/17 18:16 18 98 Room Air 01/16/17 18:15 72 112/56 01/16/17 14:30 98.1 72 18 112/56 98 Room Air 98.1 01/16/17 13:40 98.6 68 18 129/73 98 Room Air 98.6 01/16/17 13:00 60 18 100 Room Air 01/16/17 12:00 58 18 98 Room Air 01/16/17 10:30 60 16 112/55 100 Room Air 01/16/17 09:30 60 18 119/63 100 Room Air 01/16/17 09:30 98.0 60 18 119/63 99 Room Air 98.0 Laboratory Laboratory Laboratory Tests Test 01/17/17 04:00 01/17/17 10:40 White Blood Count 4.1x10^3/uL (4.0-11.0) Red Blood Count 2.91x10^6/uL (3.50-5.40) Hemoglobin 8.3g/dL (12.0-15.5) Hematocrit 25.1% (36.0-47.0) Mean Corpuscular Volume 86fL (79-100) Mean Corpuscular Hemoglobin 29pg (25-35) Mean Corpuscular Hemoglobin Concent 33g/dL (31-37) Red Cell Distribution Width 19.7% (11.5-14.5) Platelet Count 161x10^3/uL (140-400) Neutrophils (%) (Auto) 56% (31-73) Lymphocytes (%) (Auto) 23% (24-48) Monocytes (%) (Auto) 9% (0-9) Eosinophils (%) (Auto) 12% (0-3) Basophils (%) (Auto) 1% (0-3) Neutrophils # (Auto) 2.3x10^3uL (1.8-7.7) Lymphocytes # (Auto) 0.9x10^3/uL (1.0-4.8) Monocytes # (Auto) 0.4x10^3/uL (0.0-1.1) Eosinophils # (Auto) 0.5x10^3/uL (0.0-0.7) Basophils # (Auto) 0.0x10^3/uL (0.0-0.2) Sodium Level 144mmol/L (136-145) Potassium Level 3.9mmol/L (3.5-5.1) Chloride Level 106mmol/L (98-107) Carbon Dioxide Level 32mmol/L (21-32) Anion Gap 6 (6-14) Blood Urea Nitrogen 17mg/dL (7-20) Creatinine 1.6mg/dL (0.6-1.0) Estimated GFR (Cockcroft-Gault) 36.9 Glucose Level 91mg/dL (70-99) Calcium Level 8.5mg/dL (8.5-10.1) Triglycerides Level 52mg/dL (0-150) Cholesterol Level 141mg/dL (0-200) LDL Cholesterol, Calculated 51mg/dL (0-100) VLDL Cholesterol, Calculated 10mg/dL (0-40) HDL Cholesterol 80mg/dL (40-60) Cholesterol/HDL Ratio 1.8 Digoxin Level 1.1ng/mL (0.9-2.0) Digoxin Last Dose Date 01/16/17 Digoxin Last Dose Time 0900 Prothrombin Time 33.3SEC (11.7-14.0) Prothromb Time International Ratio 3.5 (0.8-1.1) Medication Medications Current Medications Acetaminophen (Tylenol) 325 mg PRN Q6HRS PRN PO PAIN; Start 01/16/17 at 17:30 Albuterol/ Ipratropium (Duoneb) 3 ml RTQID NEB Last administered on 01/17/17 11 :55; Start 01/16/17 at 20:00 Amlodipine Besylate (Norvasc) 10 mg DAILY PO Last administered on 01/17/17 09: 30; Start 01/17/17 at 09:00 Atorvastatin Calcium (Lipitor) 10 mg HS PO Last administered on 01/16/17 21:06 ; Start 01/16/17 at 21:00 Baclofen (Lioresal) 10 mg HS PO Last administered on 01/16/17 21:06; Start 01/16 at 21:00 Digoxin (Lanoxin) 125 mcg DAILY PO Last administered on 01/17/17 09:30; Start 01/17/17 at 09:00 Dronedarone (Multaq) 400 mg BIDACLD PO Last administered on 01/17/17 11:30; Start 01/16/17 at 18:00 Fentanyl (Duragesic 50mcg/ Hr Patch) 1 patch Q3DAYS TD Last administered on 01/16 18:16; Start 01/16/17 at 18:00 Ferrous Sulfate (Feosol) 325 mg DAILYWBKFT PO Last administered on 01/17/17 09: 28; Start 01/17/17 at 08:00 Furosemide (Lasix) 20 mg DAILY PO Last administered on 01/17/17 09:28; Start at 09:00 Lisinopril (Prinivil) 10 mg DAILY PO Last administered on 01/17/17 09:29; Start 01/17/17 at 09:00 Non-Formulary Medication 1 tab QHS PO ; Start 01/16/17 at 21:00; Status UNV Non-Formulary Medication 3 ml RTQID NEB ; Start 01/16/17 at 20:00; Status UNV Pantoprazole Sodium (Protonix) 40 mg DAILY PO Last administered on 01/17/17 09: 31; Start 01/17/17 at 09:00 Potassium Chloride (Klor-Con) 10 meq BIDWMEALS PO Last administered on 09:28; Start 01/16/17 at 18:00 Prenat Multivit/ Wise/Iron/Folic Ac (Multivitamin ) 1 tab DAILY PO Last administered on 01/17/17 09:28; Start 01/17/17 at 09:00 Sodium Chloride (Iv Sodium Chloride 0.9% 1000ml Bag) 1,000 ml @ 75 mls/hr [id number] IV Last administered on 01/17/17 11:30; Start 01/17/17 at 10:30 Vitamin D (Vitamin D3) 500 unit DAILY PO Last administered on 01/17/17 09:31; Start 01/17/17 at 09:00 Warfarin Sodium (Coumadin) 3 mg DAILY16 PO ; Start 01/18/17 at 16:00 Warfarin Sodium 1 each 1 each PRN DAILY PRN MC SEE COMMENTS Last administered on 01/17/17 12:56; Start 01/16/17 at 18:00 Comment Review of Relevant I have reviewed the following items miriam (where applicable) has been applied. KEILA DESIR MD Jan 17, 2017 15:04
[2017-01-17] MEDS: BACLOFEN 10 MG TABLET PO SCH (20:47)
[2017-01-17] MEDS: ATORVASTATIN CALCIUM 10 MG TABLET. PO SCH (20:47)
[2017-01-18] MEDS: IV NORMAL SALINE 1000ML BAG 1,000 ML IV SCH ×2 (01:42→15:20)
[2017-01-18 03:00] VITALS: BP 129/68
[2017-01-18 05:28] LABS: CALCIUM 8.4 mg/dL (8.5-10.1); CREATININE 1.5 mg/dL (0.6-1.0); GFR 39.7; POTASSIUM 3.9 mmol/L (3.5-5.1)
[2017-01-18 07:00] VITALS: BP 134/65
[2017-01-18] MEDS: IPRATRPIUM/ALBUTEROL 0.5/2.5MG 3 ML NEBU. NEB SCH ×4 (07:41→19:33)
[2017-01-18] MEDS: PRENATAL MULTIVITAMIN TABLET. PO SCH (09:24)
[2017-01-18] MEDS: FUROSEMIDE 20 MG TABLET PO SCH (09:24)
[2017-01-18] MEDS: POTASSIUM CHLORIDE 10 MEQ TABLET.ER. PO SCH ×2 (09:25→16:49)
[2017-01-18] MEDS: LISINOPRIL 20 MG TABLET PO SCH (09:25)
[2017-01-18] MEDS: FERROUS SULFATE 325 MG TABLET PO SCH (09:26)
[2017-01-18] MEDS: CHOLECALCIFEROL (VITAMIN D3) 1,000 UNIT TABLET PO SCH (09:26)
[2017-01-18] MEDS: DIGOXIN 125 MCG TABLET PO SCH (09:27)
[2017-01-18] MEDS: AMLODIPINE BESYLATE 10 MG TABLET PO SCH (09:27)
[2017-01-18] MEDS: PANTOPRAZOLE 40 MG TABLET. PO SCH (09:29)
[2017-01-18] MEDS ORDERED: ONABOTULINUMTOXINA 100 UNIT VIAL. ID ONE (10:00)
[2017-01-18 10:25] VITALS: BP 115/57
--- NOTE | 2017-01-18 10:36 | PDOC ---
PROGRESS NOTES Subjective Subjective weak ,needs assistance in transfers Objective Objective Vital Signs Date Time Temp Pulse Resp B/P Pulse Ox O2 Delivery O2 Flow Rate FiO2 01/18/17 10:25 97.9 65 18 115/57 100 Room Air 97.9 Intake and Output 01/18/17 07:00 Intake Total 1630 ml Balance 1630 ml Intake Oral 630 ml IV Total 1000 ml # Voids 3 Physical Exam Abdomen: Normal bowel sounds, Soft Heart: Regular rate, Normal S1 Extremities: No clubbing General: Alert HEENT: Atraumatic Lungs: Clear to auscultation MUSCULOSKELETAL: Osteoarthritic changes both hands Neck: Supple Neuro: Normal speech Skin: No breakdown COMMENT old rt side contractures Diagnosis Problem List Problems Medical Problems: (1) Acute left-sided weakness Status: Acute Assessment Assessment Problems Medical Problems: (1) Acute left-sided weakness Status: Acute FINAL IMPRESSION: 1. Left-sided weakness, which is new, possibility of CVA. 2. 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 3. Chronic atrial fibrillation, on Coumadin. 4. Hypertension. 5. Hyperlipidemia. 6. Mitral regurgitation, moderate. PLAN: Pt OT. rehab consult needs to go to [facility] . saturday. mri brain neg . carotid neg. At this time, admit to hospital, seen by Neurology. MRI scheduled, PT, OT and rehab consult and see how she does. Problems: Plan Plan of Care Problems Medical Problems: (1) Acute left-sided weakness Status: Acute Comment Review of Relevant I have reviewed the following items miriam (where applicable) has been applied. Labs Laboratory Tests Test 01/17/17 10:40 01/18/17 04:10 Prothrombin Time 33.3SEC (11.7-14.0) Prothromb Time International Ratio 3.5 (0.8-1.1) Sodium Level 145mmol/L (136-145) Potassium Level 3.9mmol/L (3.5-5.1) Chloride Level 106mmol/L (98-107) Carbon Dioxide Level 31mmol/L (21-32) Anion Gap 8 (6-14) Blood Urea Nitrogen 14mg/dL (7-20) Creatinine 1.5mg/dL (0.6-1.0) Estimated GFR (Cockcroft-Gault) 39.7 Glucose Level 89mg/dL (70-99) Calcium Level 8.4mg/dL (8.5-10.1) Medications Current Medications Botulinum Toxin Type A (Botox) 100 unit 1X ONCE ID ; Start 01/18/17 at 10:00; Stop 01/18/17 at 10:01; Status DC Warfarin Sodium (Coumadin) 3 mg DAILY16 PO ; Start 01/18/17 at 16:00 Vitals/I & O Vital Sign - Last 24 Hours 01/17/17 01/17/17 01/17/17 01/17/17 11:00 11:30 11:56 15:00 Temp 97.9 98.1 97.9 98.1 Pulse 61 67 107 Resp 17 B/P 123/66 123/63 107/62 Pulse Ox 100 96 O2 Delivery Room Air Room Air Room Air 01/17/17 01/17/17 01/17/17 01/17/17 15:45 16:07 19:00 19:40 Temp 97.9 97.9 Pulse 61 63 Resp 18 B/P 107/62 109/55 Pulse Ox 99 100 O2 Delivery Room Air Room Air Room Air 01/17/17 01/17/17 01/18/17 01/18/17 20:00 23:00 03:00 07:00 Temp 99.1 97.9 97.9 99.1 97.9 97.9 Pulse 87 60 57 Resp 19 18 18 B/P 127/56 129/68 134/65 Pulse Ox 93 100 96 O2 Delivery Room Air Room Air Room Air Room Air 01/18/17 01/18/17 01/18/17 01/18/17 07:42 09:25 09:27 09:27 Pulse 68 68 68 B/P 134/65 134/65 134/65 Pulse Ox 100 O2 Delivery Room Air 01/18/17 10:25 Temp 97.9 97.9 Pulse 65 Resp 18 B/P 115/57 Pulse Ox 100 O2 Delivery Room Air Intake and Output 01/17/17 01/17/17 01/18/17 15:00 23:00 07:00 Intake Total 150 ml 480 ml 1000 ml Balance 150 ml 480 ml 1000 ml ELYSSA CHU MD Jan 18, 2017 10:36
[2017-01-18] MEDS ORDERED: methylPREDNISolone ACETATE 40 MG/ML VIAL. IM ONE (10:45)
[2017-01-18] MEDS ORDERED: BUPIVACAINE MPF 0.25% 10 ML VIAL. IJ ONE (10:45)
[2017-01-18] MEDS: DRONEDARONE HCL 400 MG TABLET PO SCH ×2 (11:45→16:37)
[2017-01-18 11:52] LABS: INR 2.7 (0.8-1.1); PROTHROMBIN TIME PATIENT 27.2 SEC (11.7-14.0)
[2017-01-18 14:40] VITALS: BP 123/60
[2017-01-18] MEDS ORDERED: WARFARIN 3 MG TABLET. PO SCH (16:00)
--- NOTE | 2017-01-18 16:24 | PDOC ---
PROGRESS NOTES Assessment Assessment Left side weakness x 2 days before admission. 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 CHF HTN HLD Aortic A disease. Pulmonary A hypertension. No evidence of acute CVA this time. RECOMMENDATIONS/PLAN: She has been treated with Coumadin. Continue Lipitor 10 mg HS. OT/PT. Discussed with her son at bedside on 01/16. MRI w/o contrast: No acute stroke this time. Echo: No high grade stenosis. Echo on 11/19/16: Pulmonary A pressure 42 HISTORY OF THE PRESENT ILLNESS: 86-y-old female patient with old CVA with right side hemiplegia and spasm. She developed symptoms of weakness in her left side this time for about 2 days to be brought to the ER of [facility]. Her left side weakness significantly improved on 01/17. PAST MEDICAL HISTORY: Please see above. PAST SURGERY HISTORY: No major surgery recently. ALLERGY: Unknown MEDICATIONS: Refer to [facility] FAMILY HISTORY: Non contributory. SOCIAL HISTORY: Lives at home.. Denies current smoking, drinking, and illicit drug use. REVIEW OF SYSTEMS: Constitutional: No malnutrition, weight loss, cachexia. Head: No traumatic brain or head injury. Skin: No edema, or rash. Ear: No infection, tinnitus. Eyes: No vision loss or color blindness. Nose: No bleeding or purulent discharges. Hearing: Hearing decrease. Neck: No injury. Breast: No history of cancer, masses,or discharges. Cardiac: CHF, HTN, HLD. Pulmonary: No COPD. GI: No GI ulcer, GI bleeding. Urinary/genital: UTI. Endocrinologic: No cousin face, craniofacial dysmorphism, polydactyly. Skeletomuscular: Generalized weakness. Neurological: see HP. Psychiatric: Denies drug use/abuse. Otherwise, not [id number] review of systems. PHYSICAL EXAMINATION: General appearance is in no acute distress. HEENT: Normocephalic and nontraumatic. Eyes, nose, ears, and throat are unremarkable. Neck is supple. No lymphadenopathy. No crepitus. Cardiovascular: S1, S2, seemed regular rate and rhythm. Pulmonary: Clear to auscultation bilaterally. Abdomen: Bowel sounds are positive. Abdomen is soft, nontender, and nondistended. Extremities: No rash, lesions, or edema. No restriction of range of motion NEUROLOGICAL EXAMINATION: Awake. Oriented to place and person but not to time. PERRL. EOMI. CN: no focal findings. Muscle tone: within normal in left side, increased in right side. Muscle strength: 4 left side, right side spasm. DTR: 1-2 Plantar reflex: Neutral response bilaterally Gait: not examined in bed. Sensory exam: no acute abnormal findings. Not obvious cerebellar signs. F-T-N fine on left side. Objective Objective Vital Signs Date Time Temp Pulse Resp B/P Pulse Ox O2 Delivery O2 Flow Rate FiO2 01/18/17 15:34 Room Air 01/18/17 14:40 97.6 65 18 123/60 100 97.6 Intake and Output 01/18/17 07:00 Intake Total 1630 ml Balance 1630 ml Intake Oral 630 ml IV Total 1000 ml # Voids 3 Vitals Signs Vitals VS - Last 72 Hours, by Label Date Time Temp Pulse Resp B/P Pulse Ox O2 Delivery O2 Flow Rate FiO2 01/18/17 15:34 Room Air 01/18/17 14:40 97.6 65 18 123/60 100 Room Air 97.6 01/18/17 11:46 Room Air 01/18/17 11:45 65 115/57 01/18/17 10:25 97.9 65 18 115/57 100 Room Air 97.9 01/18/17 09:27 68 134/65 01/18/17 09:27 68 134/65 01/18/17 09:25 68 134/65 01/18/17 08:00 Room Air 01/18/17 07:42 100 Room Air 01/18/17 07:00 97.9 57 18 134/65 96 Room Air 97.9 01/18/17 03:00 97.9 60 18 129/68 100 Room Air 97.9 01/17/17 23:00 99.1 87 19 127/56 93 Room Air 99.1 01/17/17 20:00 Room Air 01/17/17 19:40 100 Room Air 01/17/17 19:00 97.9 63 18 109/55 99 Room Air 97.9 01/17/17 16:07 61 107/62 01/17/17 15:45 Room Air 01/17/17 15:00 98.1 107 17 107/62 96 Room Air 98.1 01/17/17 11:56 Room Air 01/17/17 11:30 67 123/63 01/17/17 11:00 97.9 61 17 123/66 100 Room Air 97.9 01/17/17 09:30 67 124/63 01/17/17 09:30 67 124/63 01/17/17 09:29 67 124/63 01/17/17 08:00 Room Air 01/17/17 07:47 99 Room Air 01/17/17 07:00 97.9 66 17 140/66 97 Room Air 97.9 Laboratory Laboratory Laboratory Tests Test 01/18/17 04:10 01/18/17 11:20 Sodium Level 145mmol/L (136-145) Potassium Level 3.9mmol/L (3.5-5.1) Chloride Level 106mmol/L (98-107) Carbon Dioxide Level 31mmol/L (21-32) Anion Gap 8 (6-14) Blood Urea Nitrogen 14mg/dL (7-20) Creatinine 1.5mg/dL (0.6-1.0) Estimated GFR (Cockcroft-Gault) 39.7 Glucose Level 89mg/dL (70-99) Calcium Level 8.4mg/dL (8.5-10.1) Prothrombin Time 27.2SEC (11.7-14.0) Prothromb Time International Ratio 2.7 (0.8-1.1) Medication Medications Current Medications Botulinum Toxin Type A (Botox) 100 unit 1X ONCE ID ; Start 01/18/17 at 10:00; Stop 01/18/17 at 10:01; Status DC Bupivacaine HCl (Sensorcaine-Mpf 0.25%) 10 ml 1X ONCE IJ ; Start 01/18/17 at 10 :45; Stop 01/18/17 at 10:46; Status DC Methylprednisolone Acetate (Depo-Medrol 40mg Vial) 40 mg 1X ONCE IM ; Start 08/27 at 10:45; Stop 01/18/17 at 10:46; Status DC Warfarin Sodium (Coumadin) 3 mg DAILY16 PO ; Start 01/18/17 at 16:00 Comment Review of Relevant I have reviewed the following items miriam (where applicable) has been applied. KEILA DESIR MD Jan 18, 2017 16:24
--- NOTE | 2017-01-18 18:08 | PDOC4 ---
PROCEDURE Procedure At her request,I have injected her left knee under aseptic skin technique with marcaine and depomedrol solution and she tolerated the procedure satisfactorily without any side effects. DANIELLE GARCIA MD Jan 18, 2017 18:08
[2017-01-18 19:00] VITALS: BP 118/64
[2017-01-18] MEDS: ATORVASTATIN CALCIUM 10 MG TABLET. PO SCH (20:25)
[2017-01-18] MEDS: BACLOFEN 10 MG TABLET PO SCH (20:25)
[2017-01-18 23:00] VITALS: BP 114/60
--- NOTE | 2017-01-18 23:03 | CONS ---
DATE OF CONSULTATION: 01/18/2017 I saw her at the request of Dr. Kelsey on 01/18/2017. LOCATION: She is in room 510. HISTORY OF PRESENT ILLNESS: This is an 86-year-old female known to me with old cerebrovascular accident with residual spastic right hemiparesis without much function of her right upper extremity, also atrial fibrillation on Coumadin, admitted on 01/16/2017 with new onset left-sided weakness and radiological studies failed to reveal any evidence of new cerebrovascular accident. The patient admits pain in her left knee. The patient was noted by therapy staff, requiring significant help with her mobility and self-care skills. The patient lives with her daughter, had a ramp built for stairs. The patient gets help at home with her care. The patient usually walks with a platform roller walker. PAST MEDICAL HISTORY: Also includes hypertension, hyperlipidemia, congestive heart failure, status post right total knee arthroplasty, cataract surgery, diastolic dysfunction, [id number] mitral regurgitation. ALLERGIES: SHE IS KNOWN ALLERGIC TO PENICILLIN. SOCIAL HISTORY: The patient used to smoke but not anymore since she had a stroke. FAMILY HISTORY: Hypertension and coronary artery disease. PHYSICAL EXAMINATION: Today revealed an elderly female, she is alert, oriented to time, place and person, follows commands appropriately, moves all 4 extremities voluntarily. She had spastic right upper extremity weakness with significant tightness of her right elbow, wrist and finger flexors. The patient had crepitus on range of motion of the left knee joint without knee joint effusion. Overall, she had 4+/5 grade muscle strength in her left upper extremity and both lower extremities and she had 2/5 grade muscle strength in her right upper extremity muscle groups. Deep tendon reflexes are 1-2+ and symmetrical and she had decreased touch and pinprick sensation over right side of her body. No obvious visual field cut or facial asymmetry noted. She requires help with transfers. I have not tested her ambulation skills at this time. Her skin is intact at this time. 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 The patient with known hypertension, hyperlipidemia, congestive heart failure, mitral regurgitation and diastolic dysfunction. RECOMMENDATION: To proceed with injecting her left knee to help ease her pain to consider repeat Botox injection to her right upper extremity, forearm, finger and elbow flexors to help ease the spasticity if it was not done in the last [address] Kelsey, I appreciate asking me to participate in care of this interesting patient. I will be glad to follow her with you as needed for her rehabilitation. Agree with the plan for transfer to long term care unit. I spoke to her daughter at bedside. DANIELLE GARCIA MD DR: MARICEL/nts JOB#: [id number] / [id number]
[2017-01-19 03:00] VITALS: BP 165/63
[2017-01-19] MEDS: IV NORMAL SALINE 1000ML BAG 1,000 ML IV SCH ×2 (04:48→12:41)
[2017-01-19] MEDS: IPRATRPIUM/ALBUTEROL 0.5/2.5MG 3 ML NEBU. NEB SCH ×2 (07:21→11:00)
[2017-01-19 07:30] VITALS: BP 135/62
[2017-01-19] MEDS: CHOLECALCIFEROL (VITAMIN D3) 1,000 UNIT TABLET PO SCH (08:59)
[2017-01-19] MEDS: FERROUS SULFATE 325 MG TABLET PO SCH (08:59)
[2017-01-19] MEDS: AMLODIPINE BESYLATE 10 MG TABLET PO SCH (08:59)
[2017-01-19] MEDS: POTASSIUM CHLORIDE 10 MEQ TABLET.ER. PO SCH (09:00)
[2017-01-19] MEDS: PRENATAL MULTIVITAMIN TABLET. PO SCH (09:00)
[2017-01-19] MEDS: LISINOPRIL 20 MG TABLET PO SCH (09:01)
[2017-01-19] MEDS: DIGOXIN 125 MCG TABLET PO SCH (09:01)
[2017-01-19] MEDS: PANTOPRAZOLE 40 MG TABLET. PO SCH (09:01)
[2017-01-19] MEDS: FENTANYL 50MCG/HR PATCH. TD SCH (09:01)
[2017-01-19] MEDS: FUROSEMIDE 20 MG TABLET PO SCH (09:01)
--- NOTE | 2017-01-19 09:16 | PDOC ---
RADHASergioKIMBERLI CONKLIN RESOLUTION MANAGER 01/19/17 0916: IM PROGRESS NOTES- Subjective Subjective Feeling okay Objective Objective alert, no distress Vitals Vital Signs Date Time Temp Pulse Resp B/P Pulse Ox O2 Delivery O2 Flow Rate FiO2 01/19/17 09:01 60 135/62 01/19/17 07:30 97.7 18 100 Room Air 97.7 Input & Output Intake and Output 01/19/17 07:00 Intake Total 1760 ml Balance 1760 ml Intake Oral 760 ml IV Total 1000 ml # Voids 6 # Bowel Movements 1 Physical Exam Physical Exam General appearance - alert, chronically ill appearing, and in no distress Mental Status - alert, oriented to person, place, and time, affect appropriate to mood Head - normal Chest - clear to auscultation, no wheezes, rales or rhonchi, symmetric air entry Heart - S1 and S2 normal Abdomen - soft, nontender, nondistended, no masses or organomegaly Neurological - no acute neurological deficits noted. Musculoskeletal - no muscular tenderness noted Extremities - no pedal edema Skin - warm and dry Labs Laboratory Tests Test 01/17/17 10:40 01/18/17 04:10 01/18/17 11:20 Prothrombin Time 33.3SEC (11.7-14.0) 27.2SEC (11.7-14.0) Prothromb Time International Ratio 3.5 (0.8-1.1) 2.7 (0.8-1.1) Sodium Level 145mmol/L (136-145) Potassium Level 3.9mmol/L (3.5-5.1) Chloride Level 106mmol/L (98-107) Carbon Dioxide Level 31mmol/L (21-32) Anion Gap 8 (6-14) Blood Urea Nitrogen 14mg/dL (7-20) Creatinine 1.5mg/dL (0.6-1.0) Estimated GFR (Cockcroft-Gault) 39.7 Glucose Level 89mg/dL (70-99) Calcium Level 8.4mg/dL (8.5-10.1) Laboratory Tests Test 01/18/17 11:20 Prothrombin Time 27.2SEC (11.7-14.0) Prothromb Time International Ratio 2.7 (0.8-1.1) Meds Current Medications Botulinum Toxin Type A (Botox) 100 unit 1X ONCE ID ; Start 01/18/17 at 10:00; Stop 01/18/17 at 10:01; Status DC Bupivacaine HCl (Sensorcaine-Mpf 0.25%) 10 ml 1X ONCE IJ ; Start 01/18/17 at 10 :45; Stop 01/18/17 at 10:46; Status DC Methylprednisolone Acetate (Depo-Medrol 40mg Vial) 40 mg 1X ONCE IM ; Start 08/27 at 10:45; Stop 01/18/17 at 10:46; Status DC Warfarin Sodium (Coumadin) 3 mg DAILY16 PO Last administered on 01/18/17t 16:36 ; Start 01/18/17 at 16:00 Assessment Assessment Problems Medical Problems: (1) Acute left-sided weakness Status: Acute FINAL IMPRESSION: 1. Left-sided weakness, which is new, possibility of CVA. 2. 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 3. Chronic atrial fibrillation, on Coumadin. 4. Hypertension. 5. Hyperlipidemia. 6. Mitral regurgitation, moderate. PLAN: AF warfarin INR 01/18 2.7 -- 3mg daily L sided weakness resolved -?TIA old CVA with spastic hemiparesis anemia CD Admit Hgb 9.8 01/18 8.3 -recheck today CKD III -IV Admit BUN 18 Cr 2.0 BUN 14 Cr 1.5 IV NS 75cc/hr L knee pain DJD post injection per Dr. Perez diastolic CHF EF 70% stable Cannot afford RKC - will initiate DC home with [facility]N PT OT orders. PLAN: Pt OT. rehab consult needs to go to u . saturday. mri brain neg . carotid neg. At this time, admit to hospital, seen by Neurology. MRI scheduled, PT, OT and rehab consult and see how she does. Plan Plan For more details regarding further plans, please refer to the orders. KATHERINE CHEN MD 01/19/17 1130: IM PROGRESS NOTES- Assessment Assessment The patient was seen and examined by me. Chart reviewed and plan of care formulated. Discussed with, reviewed and agree with RD MECHANICAL ENGINEER's notes, plan of care and orders with modifications as necessary. Discharge Management - 35 minutes. KIMBERLI METZ APRN Jan 19, 2017 09:16 KATHERINE CHEN MD Jan 19, 2017 11:30
--- NOTE | 2017-01-19 09:17 | DISCH ---
DISCHARGE FINAL DIAGNOSIS Problems Medical Problems: (1) Acute left-sided weakness Status: Acute CONDITION ON DISCHARGE: Stable HOME HEALTH: Yes PT. HAS FUNCTIONAL LIMITATIONS: Yes FACE TO FACE ENCOUNTER: Yes POST DISCHARGE ORDERS ACTIVITY ORDERS: Activity as tolerated WEIGHT BEARING STATUS: As tolerated DIET AFTER DISCHARGE: Cardiac (mechanical soft, honey thick liquids. No broccoli or lettuce) FOLLOW-UP PHYSICIAN FOLLOW-UP: Dr. Jung in 3-5 days WARFARIN FOLLOW-UP NEEDED: Dr. Jung with manage KIMBERLI METZ APRN Jan 19, 2017 09:17
--- NOTE | 2017-01-19 09:22 | DISCH ---
DISCHARGE WITH HOME HEALTH DISCHARGE INFORMATION: Final Diagnosis: Problems Medical Problems: (1) Acute left-sided weakness Status: Acute Condition on Discharge: Stable HOME HEALTH: Face to Face: I certify this patient is under my care and that I, or a nurse practitioner or physician's assistant producer working with me, had a face to face encounter that meets the physician face to face encounter requirements with this patient on 01/19/17. Medical Condition(s): CVA Care Home For: Assess/Skilled Observatio Physical Therapy For: Evalulation/Treatment Occupational Therapy For: Evaluation/Treatment Patient meets Homebound Statu: Unsteady balance w/ amb, FOLLOW-UP: Follow up with: Dr. Jung 3-5 days Warfarin Follow UP: Dr. Jung to manage CERTIFICATION STATEMENT: Certification Statement: Certification Statement: Based on the above finding, I certify that this patient is confined to the home and needs intermittent halfway care, physical therapy and/or speech therapy, or continues to need occupational therapy.~ This patient is under my care, and I have initiated the establishment of the plan of care.~ This patient will be followed by myself or a community physician who will periodically review the plan of care. KIMBERLI METZ APRN Jan 19, 2017 09:22
[2017-01-19 10:35] VITALS: BP 144/73
[2017-01-19 11:31] VITALS: BP 144/73
[2017-01-19] MEDS: DRONEDARONE HCL 400 MG TABLET PO SCH (11:31)
--- NOTE | 2017-01-19 12:35 | PDOC ---
PROGRESS NOTES Subjective Subjective She had no new complaints. Objective Objective Vital Signs Date Time Temp Pulse Resp B/P Pulse Ox O2 Delivery O2 Flow Rate FiO2 01/19/17 11:31 66 144/73 01/19/17 11:01 100 Room Air 01/19/17 10:35 97.9 18 97.9 Intake and Output 01/19/17 07:00 Intake Total 1760 ml Balance 1760 ml Intake Oral 760 ml IV Total 1000 ml # Voids 6 # Bowel Movements 1 Physical Exam Physical Exam She is alert and comfortable and requires significant help with transfers. Assessment Assessment Problems Medical Problems: (1) Acute left-sided weakness Status: Acute Plan Plan of Care Agree with plans for home with home health when medically stable as family could not afford to pay for co-pay for SNF. Comment Review of Relevant I have reviewed the following items miriam (where applicable) has been applied. Labs Laboratory Tests Test 01/18/17 04:10 01/18/17 11:20 Sodium Level 145mmol/L (136-145) Potassium Level 3.9mmol/L (3.5-5.1) Chloride Level 106mmol/L (98-107) Carbon Dioxide Level 31mmol/L (21-32) Anion Gap 8 (6-14) Blood Urea Nitrogen 14mg/dL (7-20) Creatinine 1.5mg/dL (0.6-1.0) Estimated GFR (Cockcroft-Gault) 39.7 Glucose Level 89mg/dL (70-99) Calcium Level 8.4mg/dL (8.5-10.1) Prothrombin Time 27.2SEC (11.7-14.0) Prothromb Time International Ratio 2.7 (0.8-1.1) Medications Current Medications Ondansetron HCl (Zofran) 4 mg PRN Q8HRS PRN IV NAUSEA/VOMITING; Start 01/16/17 at 11:45; Stop 01/17/17 at 11:44; Status DC Acetaminophen (Tylenol) 650 mg PRN Q4HRS PRN PO FEVER; Start 01/16/17 at 11:45; Stop 01/17/17 at 11:44; Status DC Acetaminophen (Tylenol) 325 mg PRN Q6HRS PRN PO PAIN; Start 01/16/17 at 17:30 Amlodipine Besylate (Norvasc) 10 mg DAILY PO Last administered on 01/19/17 08: 59; Start 01/17/17 at 09:00 Atorvastatin Calcium (Lipitor) 10 mg HS PO Last administered on 01/18/17 20:25 ; Start 01/16/17 at 21:00 Baclofen (Lioresal) 10 mg HS PO Last administered on 01/18/17 20:25; Start 01/16/17 at 21:00 Digoxin (Lanoxin) 125 mcg DAILY PO Last administered on 01/19/17 09:01; Start 01/17/17 at 09:00 Dronedarone (Multaq) 400 mg BIDACLD PO Last administered on 01/19/17 11:31; Start 01/16/17 at 18:00 Fentanyl (Duragesic 50mcg/ Hr Patch) 1 patch Q3DAYS TD Last administered on 09:01; Start 01/16/17 at 18:00 Ferrous Sulfate (Feosol) 325 mg DAILYWBKFT PO Last administered on 01/19/17 08 :59; Start 01/17/17 at 08:00 Furosemide (Lasix) 20 mg DAILY PO Last administered on 01/19/17 09:01; Start 01/17/17 at 09:00 Lisinopril (Prinivil) 10 mg DAILY PO Last administered on 01/19/17 09:01; Start 01/17/17 at 09:00 Pantoprazole Sodium (Protonix) 40 mg DAILY PO Last administered on 01/19/17 09 :01; Start 01/17/17 at 09:00 Warfarin Sodium (Coumadin) 3 mg DAILY16 PO Last administered on 01/18/17 16:36 ; Start 01/18/17 at 16:00 Vitamin D (Vitamin D3) 500 unit DAILY PO Last administered on 01/19/17 08:59; Start 01/17/17 at 09:00 Potassium Chloride (Klor-Con) 10 meq BIDWMEALS PO Last administered on 09:00; Start 01/16/17 at 18:00 Non-Formulary Medication 1 tab QHS PO ; Start 01/16/17 at 21:00; Status UNV Prenat Multivit/ Labor Relations Teacher/Iron/Folic Ac (Multivitamin ) 1 tab DAILY PO Last administered on 01/19/17 09:00; Start 01/17/17 at 09:00 Non-Formulary Medication 3 ml RTQID NEB ; Start 01/16/17 at 20:00; Status UNV Albuterol/ Ipratropium (Duoneb) 3 ml RTQID NEB Last administered on 01/19/17 11:00; Start 01/16/17 at 20:00 Warfarin Sodium 1 each 1 each PRN DAILY PRN MC SEE COMMENTS Last administered on 01/18/17 13:27; Start 01/16/17 at 18:00 Sodium Chloride (Iv Sodium Chloride 0.9% 1000ml Bag) 1,000 ml @ 75 mls/hr [id number] IV Last administered on 01/19/17 04:48; Start 01/17/17 at 10:30 Botulinum Toxin Type A (Botox) 100 unit 1X ONCE ID ; Start 01/18/17 at 10:00; Stop 01/18/17 at 10:01; Status DC Methylprednisolone Acetate (Depo-Medrol 40mg Vial) 40 mg 1X ONCE IM ; Start 08/27 at 10:45; Stop 01/18/17 at 10:46; Status DC Bupivacaine HCl (Sensorcaine-Mpf 0.25%) 10 ml 1X ONCE IJ ; Start 01/18/17 at 10 :45; Stop 01/18/17 at 10:46; Status DC Active Scripts Active [Ipratropium/Albuterol Sulfate] 3 ML Nebu 3 Ml NEB RTQID Feosol (Ferrous Sulfate) 325 Mg Tablet 325 Mg PO DAILYWBKFT Reported Furosemide 20 Mg Tablet 1 Tab PO DAILY Atorvastatin Calcium 10 Mg Tablet 10 Mg PO HS Pantoprazole Sodium 40 Mg Tablet.dr 40 Mg PO DAILY Warfarin Sodium 3 Mg Tablet 3 Mg PO DAILY FENTANYL 50mcg/hr (Fentanyl) 1 Each Patch.td72 1 Patch TP Q3DAYS Pravastatin Sodium 40 Mg Tablet 1 Tab PO QHS Vitamin D (Cholecalciferol (Vitamin D3)) 400 Unit Capsule 400 Unit PO DAILY One Tablet ( Vit #108/Iron/Fa) 1 Each Tablet 1 Each PO DAILY Tylenol (Acetaminophen) 325 Mg Tablet 325 Mg PO PRN Q6HRS PRN Potassium Chloride 10 Meq Capsule.er 10 Meq PO BID Multaq (Dronedarone Hcl) 400 Mg Tablet 400 Mg PO BIDACLD Amlodipine Besylate 10 Mg Tablet 10 Mg PO DAILY Digoxin 125 Mcg Tablet 125 Mcg PO DAILY Baclofen 10 Mg Tablet 10 Mg PO HS Lisinopril 20 Mg Tablet 10 Mg PO DAILY Vitals/I & O Vital Sign - Last 24 Hours 01/18/17 01/18/17 01/18/17 01/18/17 14:40 15:34 16:37 19:00 Temp 97.6 97.7 97.6 97.7 Pulse 65 65 68 Resp 18 18 B/P 123/60 123/60 118/64 Pulse Ox 100 94 O2 Delivery Room Air Room Air Room Air 01/18/17 01/18/17 01/18/17 01/19/17 19:31 20:00 23:00 03:00 Temp 97.9 97.9 97.9 97.9 Pulse 64 61 Resp 18 18 B/P 114/60 165/63 Pulse Ox 96 99 95 O2 Delivery Room Air Room Air Room Air Room Air 01/19/17 01/19/17 01/19/17 01/19/17 07:22 07:30 08:59 09:01 Temp 97.7 97.7 Pulse 60 60 60 Resp 18 B/P 135/62 135/62 135/62 Pulse Ox 100 100 O2 Delivery Room Air Room Air 01/19/17 01/19/17 01/19/17 01/19/17 09:01 10:35 11:01 11:31 Temp 97.9 97.9 Pulse 60 66 66 Resp 18 B/P 135/62 144/73 144/73 Pulse Ox 100 100 O2 Delivery Room Air Room Air Intake and Output 01/18/17 01/18/17 01/19/17 15:00 23:00 07:00 Intake Total 340 ml 1420 ml Balance 340 ml 1420 ml DANIELLE GARCIA MD Jan 19, 2017 12:35
--- NOTE | 2017-01-19 13:21 | PDOC ---
PROGRESS NOTES Assessment Problems Medical Problems: (1) Acute left-sided weakness Status: Acute Left side weakness x 2 days before admission. 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 No evidence of acute CVA this time. Perhaps she just had some metabolic problems making her weak, seemingly worse on the left side because the right side is already plegic. Plan Agree with discharge with home health Subjective No complaints Objective Vital Signs Date Time Temp Pulse Resp B/P Pulse Ox O2 Delivery O2 Flow Rate FiO2 01/19/17 11:31 66 144/73 01/19/17 11:01 100 Room Air 01/19/17 10:35 97.9 18 97.9 Intake and Output 01/19/17 07:00 Intake Total 1760 ml Balance 1760 ml Intake Oral 760 ml IV Total 1000 ml # Voids 6 # Bowel Movements 1 PHYSICAL EXAM Alert. Oriented to place and person. PERRL. EOMI. CN: no focal findings. Muscle tone: spastic on right Muscle strength: Right hemiplegia, left side 4/5 DTR: 1+ Plantar reflex: flexor Gait: not examined in bed. Sensory exam: no abnormal findings. No cerebellar signs elicited. Review of Relevant I have reviewed the following items miriam (where applicable) has been applied. Labs Laboratory Tests Test 01/18/17 04:10 01/18/17 11:20 Sodium Level 145mmol/L (136-145) Potassium Level 3.9mmol/L (3.5-5.1) Chloride Level 106mmol/L (98-107) Carbon Dioxide Level 31mmol/L (21-32) Anion Gap 8 (6-14) Blood Urea Nitrogen 14mg/dL (7-20) Creatinine 1.5mg/dL (0.6-1.0) Estimated GFR (Cockcroft-Gault) 39.7 Glucose Level 89mg/dL (70-99) Calcium Level 8.4mg/dL (8.5-10.1) Prothrombin Time 27.2SEC (11.7-14.0) Prothromb Time International Ratio 2.7 (0.8-1.1) Medications Current Medications Ondansetron HCl (Zofran) 4 mg PRN Q8HRS PRN IV NAUSEA/VOMITING; Start 01/16/17 at 11:45; Stop 01/17/17 at 11:44; Status DC Acetaminophen (Tylenol) 650 mg PRN Q4HRS PRN PO FEVER; Start 01/16/17 at 11:45; Stop 01/17/17 at 11:44; Status DC Acetaminophen (Tylenol) 325 mg PRN Q6HRS PRN PO PAIN; Start 01/16/17 at 17:30 Amlodipine Besylate (Norvasc) 10 mg DAILY PO Last administered on 01/19/17 08: 59; Start 01/17/17 at 09:00 Atorvastatin Calcium (Lipitor) 10 mg HS PO Last administered on 01/18/17 20:25 ; Start 01/16/17 at 21:00 Baclofen (Lioresal) 10 mg HS PO Last administered on 01/18/17 20:25; Start 01/16/17 at 21:00 Digoxin (Lanoxin) 125 mcg DAILY PO Last administered on 01/19/17 09:01; Start 01/17/17 at 09:00 Dronedarone (Multaq) 400 mg BIDACLD PO Last administered on 01/19/17 11:31; Start 01/16/17 at 18:00 Fentanyl (Duragesic 50mcg/ Hr Patch) 1 patch Q3DAYS TD Last administered on 09:01; Start 01/16/17 at 18:00 Ferrous Sulfate (Feosol) 325 mg DAILYWBKFT PO Last administered on 01/19/17 08 :59; Start 01/17/17 at 08:00 Furosemide (Lasix) 20 mg DAILY PO Last administered on 01/19/17 09:01; Start 01/17/17 at 09:00 Lisinopril (Prinivil) 10 mg DAILY PO Last administered on 01/19/17 09:01; Start 01/17/17 at 09:00 Pantoprazole Sodium (Protonix) 40 mg DAILY PO Last administered on 01/19/17 09 :01; Start 01/17/17 at 09:00 Warfarin Sodium (Coumadin) 3 mg DAILY16 PO Last administered on 01/18/17 16:36 ; Start 01/18/17 at 16:00 Vitamin D (Vitamin D3) 500 unit DAILY PO Last administered on 01/19/17 08:59; Start 01/17/17 at 09:00 Potassium Chloride (Klor-Con) 10 meq BIDWMEALS PO Last administered on 09:00; Start 01/16/17 at 18:00 Non-Formulary Medication 1 tab QHS PO ; Start 01/16/17 at 21:00; Status UNV Prenat Multivit/ [place]/Iron/Folic Ac (Multivitamin ) 1 tab DAILY PO Last administered on 01/19/17 09:00; Start 01/17/17 at 09:00 Non-Formulary Medication 3 ml RTQID NEB ; Start 01/16/17 at 20:00; Status UNV Albuterol/ Ipratropium (Duoneb) 3 ml RTQID NEB Last administered on 01/19/17 11:00; Start 01/16/17 at 20:00 Warfarin Sodium 1 each 1 each PRN DAILY PRN MC SEE COMMENTS Last administered on 01/18/17 13:27; Start 01/16/17 at 18:00 Sodium Chloride (Iv Sodium Chloride 0.9% 1000ml Bag) 1,000 ml @ 75 mls/hr [id number] IV Last administered on 01/19/17 04:48; Start 01/17/17 at 10:30 Botulinum Toxin Type A (Botox) 100 unit 1X ONCE ID ; Start 01/18/17 at 10:00; Stop 01/18/17 at 10:01; Status DC Methylprednisolone Acetate (Depo-Medrol 40mg Vial) 40 mg 1X ONCE IM ; Start 08/27 at 10:45; Stop 01/18/17 at 10:46; Status DC Bupivacaine HCl (Sensorcaine-Mpf 0.25%) 10 ml 1X ONCE IJ ; Start 01/18/17 at 10 :45; Stop 01/18/17 at 10:46; Status DC Active Scripts Active [Ipratropium/Albuterol Sulfate] 3 ML Nebu 3 Ml NEB RTQID Feosol (Ferrous Sulfate) 325 Mg Tablet 325 Mg PO DAILYWBKFT Reported Furosemide 20 Mg Tablet 1 Tab PO DAILY Gave dose this morning Take again tomorrow morning Atorvastatin Calcium 10 Mg Tablet 10 Mg PO HS Dose given last night Take again tonight Pantoprazole Sodium 40 Mg Tablet.dr 40 Mg PO DAILY Gave dose this morning Take again tomorrow morning Warfarin Sodium 3 Mg Tablet 3 Mg PO DAILY Gave dose yesterday evening Take again this evening FENTANYL 50mcg/hr (Fentanyl) 1 Each Patch.td72 1 Patch TP Q3DAYS Changed today Change again on the Vitamin D (Cholecalciferol (Vitamin D3)) 400 Unit Capsule 400 Unit PO DAILY Gave dose this morning Take again tomorrow morning One Tablet ( Vit #108/Iron/Fa) 1 Each Tablet 1 Each PO DAILY Gave dose this morning Take again tomorrow morning Tylenol (Acetaminophen) 325 Mg Tablet 325 Mg PO PRN Q6HRS PRN Not given on this admission Take when needed Potassium Chloride 10 Meq Capsule.er 10 Meq PO BID Gave dose this morning Take again tonight Multaq (Dronedarone Hcl) 400 Mg Tablet 400 Mg PO BIDACLD Gave dose before lunch Take again tonight before dinner Amlodipine Besylate 10 Mg Tablet 10 Mg PO DAILY Gave this morning Take again tomorrow morning Digoxin 125 Mcg Tablet 125 Mcg PO DAILY Gave dose this morning Take again tomorrow morning Baclofen 10 Mg Tablet 10 Mg PO HS Dose given last night Take again tonight Lisinopril 20 Mg Tablet 10 Mg PO DAILY Gave dose this morning Take again tomorrow morning Vitals/I & O Vital Sign - Last 24 Hours 01/18/17 01/18/17 01/18/17 01/18/17 14:40 15:34 16:37 19:00 Temp 97.6 97.7 97.6 97.7 Pulse 65 65 68 Resp 18 18 B/P 123/60 123/60 118/64 Pulse Ox 100 94 O2 Delivery Room Air Room Air Room Air 01/18/17 01/18/17 01/18/17 01/19/17 19:31 20:00 23:00 03:00 Temp 97.9 97.9 97.9 97.9 Pulse 64 61 Resp 18 18 B/P 114/60 165/63 Pulse Ox 96 99 95 O2 Delivery Room Air Room Air Room Air Room Air 01/19/17 01/19/17 01/19/17 01/19/17 07:22 07:30 08:59 09:01 Temp 97.7 97.7 Pulse 60 60 60 Resp 18 B/P 135/62 135/62 135/62 Pulse Ox 100 100 O2 Delivery Room Air Room Air 01/19/17 01/19/17 01/19/17 01/19/17 09:01 10:35 11:01 11:31 Temp 97.9 97.9 Pulse 60 66 66 Resp 18 B/P 135/62 144/73 144/73 Pulse Ox 100 100 O2 Delivery Room Air Room Air Intake and Output 01/18/17 01/18/17 01/19/17 15:00 23:00 07:00 Intake Total 340 ml 1420 ml Balance 340 ml 1420 ml LATHA RUSSO MD Jan 19, 2017 13:21
--- NOTE | 2017-01-20 21:43 | PDOC ---
Provider Note Provider Note Discharge summary dictated. #[id number] ELYSSA CHU MD Jan 20, 2017 21:43
--- NOTE | 2017-01-20 22:07 | DS ---
DATE OF DISCHARGE: 01/19/2017 REASON FOR ADMISSION TO THE HOSPITAL: Left sided weakness. The patient has history of previous right-sided weakness from old cerebrovascular accident. CONSULTATIONS: 1. Dr. Dawn, Neurology. 2. Dr. Perez. PROCEDURES DONE: 1. CT head. 2. Carotid Doppler. 3. MRI of the brain. COMPLICATIONS NOTED: None. HOSPITAL COURSE: The patient is an 86-year-old female who has a previous stroke, chronic AFib, on Coumadin. She had contractures of the right upper extremity. She is at home with caregiver. She had weakness in the left side this time and the patient had a CT head negative for new CVA. MRI of the brain did not show any new CVA. Carotid Doppler was negative. The patient had echo in November of this year, good left ventricular function. The patient was continued on Coumadin and seen by Physical Therapy, Rehab and the patient was discharged home with home health. She did not have enough skilled days to go to care home facility. FINAL DIAGNOSES: 1. Left arm weakness improved no specific cause, no evidence of acute cerebrovascular accident. 2. 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 3. Chronic atrial fibrillation on anticoagulation ,coumadin,rate controlled. 4. Hypertension. 5. Hyperlipidemia. 6. Protein calorie malnutrition moderate. See MRAD for discharge medications. ELYSSA CHU MD DR: NATY/humza JOB#: [id number] / [id number] vu Jung ONEL
== END 2017-01-19 14:24 | disposition home health service (06) | DRG 683 ==
LOC: ER 09:20 → 5 NORTH 11:30
PROVIDERS: ADMIT Internal Medicine; ATTEND Internal Medicine
DX: N17.9 Acute kidney failure, unspecified (principal); E46 Unspecified protein-calorie malnutrition; Z68.1 Body mass index [BMI] 19.9 or less, adult; I69.351 Hemiplegia and hemiparesis following cerebral infarction affecting right dominant side; R53.1 Weakness; D64.9 Anemia, unspecified; E78.00 Pure hypercholesterolemia, unspecified; E78.5 Hyperlipidemia, unspecified; I34.0 Nonrheumatic mitral (valve) insufficiency; I48.2 Chronic atrial fibrillation; Z96.651 Presence of right artificial knee joint; I50.9 Heart failure, unspecified; I11.0 Hypertensive heart disease with heart failure; Z79.01 Long term (current) use of anticoagulants; Z79.899 Other long term (current) drug therapy; Z88.0 Allergy status to penicillin; Z82.49 Family history of ischemic heart disease and other diseases of the circulatory system; Z87.891 Personal history of nicotine dependence
CPT/HCPCS: 36415; 70450; 70551; 71010; 80048; 80053; 80061; 80162; 81001; 82550; 82607; 83036; 84443; 85007; 85027; 85610; 93005; 93880; 94640; 94760; J7030; J7620; 97116; 97535; 99285-25

== ENCOUNTER 2017-03-04 16:23 | Inpatient (IN) | payer MEDICARE, OTHER ==
[~2017-03-04] VITALS: Ht 165.1 cm; Wt 55.8 kg
[~2017-03-04 16:23] MED LIST changes: +ATOR10TA60 PO; +WARF-78 PO; +WARF2TAB7 PO; -WARF5TAB PO
[2017-03-04 17:57] LABS: BASO % 1 % (0-3); EOS % 7 % (0-3); HEMATOCRIT 28.5 % (36.0-47.0); HEMOGLOBIN 9.2 g/dL (12.0-15.5); LYMPH # 0.6 x10^3/uL (1.0-4.8); LYMPH % 10 % (24-48); MEAN CORPUSCULAR HEMOGLOBIN 29 pg (25-35); MEAN CORPUSCULAR HGB CONC 33 g/dL (31-37); MEAN CORPUSCULAR VOLUME 90 fL (79-100); MONO % 7 % (0-9); NEUT % 75 % (31-73); PLATELET COUNT 199 x10^3/uL (140-400); RED BLOOD COUNT 3.18 x10^6/uL (3.50-5.40); RED CELL DISTRIBUTION WIDTH 16.1 % (11.5-14.5); WHITE BLOOD COUNT 6.2 x10^3/uL (4.0-11.0)
--- NOTE | 2017-03-04 17:58 | EKG ---
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
[2017-03-04 18:06] LABS: CALCIUM 8.8 mg/dL (8.5-10.1); CREATININE 2.7 mg/dL (0.6-1.0); GFR 20.2; POTASSIUM 4.2 mmol/L (3.5-5.1)
[2017-03-04] MEDS ORDERED: ONDANSETRON PF 4 MG/2 ML VIAL. IV PRN (18:15)
[2017-03-04] MEDS ORDERED: methylPREDNISolone SOD SUCC PF 125 MG/2 ML VIAL. IV ONE (18:15)
[2017-03-04] MEDS ORDERED: IPRATRPIUM/ALBUTEROL 0.5/2.5MG 3 ML NEBU. NEB ONE (18:15)
--- NOTE | 2017-03-04 18:20 | PHYS DOC ---
Past Medical History Past Medical History: CHF, High Cholesterol, Hypertension, Stroke Past Surgical History: No Surgical History Alcohol Use: None Drug Use: None Adult General Chief Complaint Chief Complaint: SHORTNESS OF BREATH HPI HPI 86-year-old female who's had significant audible wheezing for the last day with shortness of air. She appears in the mild stress upon my initial evaluation. She is audibly wheezing and not moving much air. She denies any chest pain. She denies any other complaints at this time. Her daughter at bedside who lives with her states this is the worst she has seen her breathing. She does have history of CHF as well. She denies any recent cough or fever. Review of Systems Review of Systems Constitutional: Denies fever or chills [] Eyes: Denies change in visual acuity, redness, or eye pain [] HENT: Denies nasal congestion, has sore throat [] Respiratory: Denies cough or shortness of breath [] Cardiovascular: No additional information not addressed in HPI [] GI: Denies abdominal pain, nausea, vomiting, bloody stools or diarrhea [] : Denies dysuria or hematuria [] Musculoskeletal: Denies back pain or joint pain [] Integument: Denies rash or skin lesions [] Neurologic: Denies headache, focal weakness or sensory changes [] Endocrine: Denies polyuria or polydipsia [] Current Medications Current Medications Current Medications Medications (Trade) Dose Ordered Sig/Sam Start Time Stop Time Status Last Admin Dose Admin Albuterol/ Ipratropium (Duoneb) 3 ml RTQID 03/04/17 20:00 03/05/17 19:59 Methylprednisolone Sodium Succinate (Solu-Medrol 125mg Vial) 125 mg 1X ONCE 03/04/17 18:15 03/04/17 18:16 Ondansetron HCl (Zofran) 4 mg PRN Q8HRS PRN 03/04/17 18:15 03/05/17 18:14 Allergies Allergies Allergies Coded Allergies Type Severity Reaction Last Updated Verified Penicillins Allergy Intermediate Hives 02/08/15 Yes Physical Exam Physical Exam Constitutional: Well developed, well nourished, no acute distress, non-toxic appearance. [] HENT: Normocephalic, atraumatic, bilateral external ears normal, oropharynx moist, no oral exudates, nose normal. [] Eyes: PERRLA, EOMI, conjunctiva normal, no discharge. [] Neck: Normal range of motion, no tenderness, supple, no stridor. [] Cardiovascular:Heart rate regular rhythm, no murmur [] Lungs & Thorax: Diffuse audible wheezing bilaterally with no significant respiratory distress [] Abdomen: Bowel sounds normal, soft, no tenderness, no masses, no pulsatile masses. [] Skin: Warm, dry, no erythema, no rash. [] Back: No tenderness, no CVA tenderness. [] Extremities: No tenderness, no cyanosis, no clubbing, ROM intact, no edema. [] Neurologic: Alert and oriented X 3, normal motor function, normal sensory function, no focal deficits noted. [] Psychologic: Affect normal, judgement normal, mood normal. [] Current Patient Data Vital Signs Vital Signs Date Time Temp Pulse Resp B/P Pulse Ox O2 Delivery O2 Flow Rate FiO2 03/04/17 16:38 98.4 71 20 113/59 93 Room Air 98.4 Lab Values Laboratory Tests Test 03/04/17 17:05 White Blood Count 6.2x10^3/uL (4.0-11.0) Red Blood Count 3.18x10^6/uL (3.50-5.40) L Hemoglobin 9.2g/dL (12.0-15.5) L Hematocrit 28.5% (36.0-47.0) L Mean Corpuscular Volume 90fL (79-100) Mean Corpuscular Hemoglobin 29pg (25-35) Mean Corpuscular Hemoglobin Concent 33g/dL (31-37) Red Cell Distribution Width 16.1% (11.5-14.5) H Platelet Count 199x10^3/uL (140-400) Neutrophils (%) (Auto) 75% (31-73) H Lymphocytes (%) (Auto) 10% (24-48) L Monocytes (%) (Auto) 7% (0-9) Eosinophils (%) (Auto) 7% (0-3) H Basophils (%) (Auto) 1% (0-3) Neutrophils # (Auto) 4.7x10^3uL (1.8-7.7) Lymphocytes # (Auto) 0.6x10^3/uL (1.0-4.8) L Monocytes # (Auto) 0.5x10^3/uL (0.0-1.1) Eosinophils # (Auto) 0.4x10^3/uL (0.0-0.7) Basophils # (Auto) 0.0x10^3/uL (0.0-0.2) Sodium Level 143mmol/L (136-145) Potassium Level 4.2mmol/L (3.5-5.1) Chloride Level 104mmol/L (98-107) Carbon Dioxide Level 28mmol/L (21-32) Anion Gap 11 (6-14) Blood Urea Nitrogen 28mg/dL (7-20) H Creatinine 2.7mg/dL (0.6-1.0) H Estimated GFR (Cockcroft-Gault) 20.2 Glucose Level 135mg/dL (70-99) H Calcium Level 8.8mg/dL (8.5-10.1) Laboratory Tests 03/04/17 17:05 Laboratory Tests 03/04/17 17:05 EKG EKG EKG as interpreted by me shows an atrial fibrillation that is rate controlled at 70 bpm with an occasional PVC. There is a leftward axis. There are no obvious ischemic findings. Radiology/Procedures Radiology/Procedures One view of the chest as interpreted by me shows chronic findings of COPD but no other obvious finding. Course & Med Decision Making Course & Med Decision Making Pertinent Labs and Imaging studies reviewed. (See chart for details) This 86-year-old female with significant audible wheezing and shortness of air will be admitted to the hospital for COPD exacerbation. DuoNeb was ordered and administered and a dose of IV Solu-Medrol was given. Her EKG and blood work were unrevealing. Her BUN/creatinine are slightly elevated which is likely due to mild dehydration. I discussed the need to admit the patient for COPD exacerbation with the hospitalist, Dr. Kelsey, who agreed to accept with pulmonology consult as well. Dragon Disclaimer Dragon Disclaimer This electronic medical record was generated, in whole or in part, using a voice recognition dictation system. Departure Departure Impression: Primary Impression: COPD exacerbation Disposition: ADMITTED INPATIENT Admitting Physician: Sparkle Kelsey Condition: STABLE Referrals: JOBY RIVAS (PCP) BERRY CAMPOS DO Mar 04, 2017 18:20
[2017-03-04] MEDS ORDERED: IPRATRPIUM/ALBUTEROL 0.5/2.5MG 3 ML NEBU. NEB SCH (20:00)
[2017-03-04 22:31] VITALS: BP 136/74
[2017-03-04 22:32] VITALS: BP 136/74
[2017-03-04] MEDS ORDERED: ACETAMINOPHEN 325 MG TABLET. PO PRN (22:45)
[2017-03-04] MEDS ORDERED: ALBUTEROL SULFATE 2.5 MG/3 ML NEBU. NEB PRN (22:45)
[2017-03-04] MEDS: methylPREDNISolone SOD SUCC PF 125 MG/2 ML VIAL. IV SCH (23:43)
[2017-03-04] MEDS: IV NORMAL SALINE 1000ML BAG 1,000 ML IV SCH (23:44)
[2017-03-05 05:13] LABS: BASO % 0 % (0-3); EOS % 0 % (0-3); HEMOGLOBIN 8.2 g/dL (12.0-15.5); LYMPH # 0.3 x10^3/uL (1.0-4.8); LYMPH % 9 % (24-48); MEAN CORPUSCULAR HEMOGLOBIN 29 pg (25-35); MEAN CORPUSCULAR HGB CONC 33 g/dL (31-37); MEAN CORPUSCULAR VOLUME 89 fL (79-100); MONO % 1 % (0-9); NEUT % 90 % (31-73); PLATELET COUNT 144 x10^3/uL (140-400); RED BLOOD COUNT 2.81 x10^6/uL (3.50-5.40); RED CELL DISTRIBUTION WIDTH 15.7 % (11.5-14.5); WHITE BLOOD COUNT 3.7 x10^3/uL (4.0-11.0)
[2017-03-05 05:15] LABS: INR 2.3 (0.8-1.1); PROTHROMBIN TIME PATIENT 23.6 SEC (11.7-14.0)
[2017-03-05 05:29] LABS: CALCIUM 8.2 mg/dL (8.5-10.1); CREATININE 2.7 mg/dL (0.6-1.0); GFR 20.2; POTASSIUM 4.7 mmol/L (3.5-5.1)
[2017-03-05] MEDS: methylPREDNISolone SOD SUCC PF 125 MG/2 ML VIAL. IV SCH ×3 (06:10→21:19)
[2017-03-05] MEDS: IPRATRPIUM/ALBUTEROL 0.5/2.5MG 3 ML NEBU. NEB SCH ×4 (07:25→19:35)
[2017-03-05 07:32] VITALS: BP 125/75
[2017-03-05] MEDS ORDERED: NON FORMULARY ITEM ([Ipratropium/Albuterol Sulfate] 3 ML) NEB SCH (08:00)
[2017-03-05] MEDS: FUROSEMIDE 20 MG TABLET PO SCH (08:15)
[2017-03-05] MEDS: POTASSIUM CHLORIDE 10 MEQ TABLET.ER. PO SCH ×2 (08:15→17:14)
[2017-03-05] MEDS: FERROUS SULFATE 325 MG TABLET. PO SCH (08:16)
[2017-03-05] MEDS: PANTOPRAZOLE 40 MG TABLET.DR. PO SCH (08:16)
[2017-03-05] MEDS: CHOLECALCIFEROL (VITAMIN D3) 1,000 UNIT TABLET PO SCH (08:17)
[2017-03-05] MEDS: amLODIPine BESYLATE 10 MG TABLET PO SCH (08:17)
[2017-03-05] MEDS: LISINOPRIL 10 MG TABLET PO SCH (08:17)
[2017-03-05] MEDS: DIGOXIN 125 MCG TABLET. PO SCH (08:22)
--- NOTE | 2017-03-05 08:58 | RAD ---
Exam: AP portable chest. History: Shortness of air, cough for 3 days. Comparison: 01/16/2017. Findings: The heart and mediastinal structures are within normal limits for size. Lungs are without infiltrate. No pneumothorax or pleural effusion is appreciated. Aortic atherosclerosis is seen. Bilateral shoulder degeneration is seen. Impression: 1. No acute cardiopulmonary process.
[2017-03-05] MEDS: IV NORMAL SALINE 1000ML BAG 1,000 ML IV SCH ×2 (09:19→20:05)
--- NOTE | 2017-03-05 09:56 | PDOC ---
Provider Note Provider Note Pt seen.H&P dictated. #[id number] ELYSSA CHU MD Mar 05, 2017 09:56
[2017-03-05 10:53] VITALS: BP 107/57
[2017-03-05 11:27] LABS: PLT ESTIMATE ADEQUATE (ADEQUATE)
[2017-03-05] MEDS: DRONEDARONE HCL 400 MG TABLET PO SCH ×2 (12:04→17:13)
--- NOTE | 2017-03-05 12:12 | HP ---
ADMIT DATE: 03/04/2017 LOCATION: [facility] REASON FOR ADMISSION TO THE HOSPITAL: Shortness of breath, COPD exacerbation, acute on chronic renal failure. HISTORY OF PRESENT ILLNESS: The patient is an 86-year-old female, patient of Dr. Jung. She has a history of old CVA, history of hypertension, atrial fibrillation and anticoagulation with Coumadin. She has been at home, she was having shortness of breath, came to the Emergency Room. She was tight in the chest, wheezing, was given breathing treatment, did not improve, was admitted to the hospital, was given IV Solu-Medrol, DuoNeb. She was also found to have kidney failure, creatinine 2.7. It is usually around 1.5, 1.6. She was given IV fluids, and see how she improves. She was admitted in January of this year for left-sided weakness, had extensive workup including CT carotid, MRI of the brain. No new strokes. PAST MEDICAL HISTORY: She has a history of atrial fibrillation, CVA, left hemiparesis, hypertension, hyperlipidemia, chronic diastolic heart failure and mild chronic renal insufficiency. 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 ALLERGIES: PENICILLIN CAUSES HIVES. MEDICATIONS: She is on amlodipine 10 mg, baclofen 10 mg, digoxin 125 mcg, Multaq 400 mg twice a day, fentanyl patch 50 every 3 days, iron, Lasix 40 mg daily, Prinivil 20 mg daily, Protonix 40 mg daily, Coumadin 3.5 mg daily, vitamin D daily, potassium 10 mEq daily, pravastatin 40 mg daily, DuoNeb 4 times daily. SOCIAL HISTORY: Smoked for many years, stopped a couple of years ago. Denies alcohol or drug abuse. SOCIAL HISTORY: She lives at home with her daughter. She has a elderly caregiver. FAMILY HISTORY: Positive for hypertension, heart disease. REVIEW OF SYMPTOMS: CARDIAC: No chest pain. LUNGS: Complains of cough, sputum, white phlegm. No green phlegm. GASTROINTESTINAL: No nausea or vomiting. NEUROLOGICAL: No new problems noted. Rest of the 14-system was reviewed and negative. PHYSICAL EXAMINATION: GENERAL: The patient is not in any distress, looking chronically ill. VITAL SIGNS: Temperature 98, pulse 71, respirations 20, blood pressure 113/59, 93% saturation. HEENT: Head is atraumatic. Pupils are equal. Oral cavity, dentures. NECK: Supple. Thyroid not enlarged. CHEST: Symmetrical. EXTREMITIES: The patient has contractures of right upper extremity, flexion contractures at the wrist as well as the elbow. She also has excellent contracture of the right leg and she is able to move the left arm and left leg. ABDOMEN: Soft. CARDIOVASCULAR: S1, S2. LUNGS: Clear. EXTERNAL GENITALIA: No Curry. RECTAL: Deferred. EXTREMITIES: No edema. LABORATORY DATA: Shows a white count of 6, hemoglobin 9, platelets 199. Electrolytes sodium 143, potassium 4.2, chloride 104, bicarbonate 28, BUN 28, creatinine 2.7, glucose 135. Troponin 0.17. INR is 2.3, digoxin was 1.5. Chest x-ray: No acute infiltrates. EKG done, report is pending. FINAL IMPRESSION: 1. Chronic obstructive pulmonary disease with acute exacerbation. 2. Chronic history of smoking in the past, quit a couple of years ago. 3. Acute on chronic renal failure, usually around 1.7, now it is 2.7. 4. Chronic atrial fibrillation, on Multaq and anticoagulation with Coumadin. 5. Hypertension. 6. Hyperlipidemia. 7. Anemia of chronic disease. 8. History of cerebrovascular accident with Rt hemiparesis. PLAN: At this time, admit to hospital and hydrate with IV fluids, IV Solu-Medrol, DuoNeb 4 times daily and monitor kidney functions and see how her kidneys improve. Also monitor INR. ELYSSA CHU MD DR: NATY/humza JOB#: [id number] / [id number] ONEL
--- NOTE | 2017-03-05 13:16 | ACF ---
Admission Forms Criteria COPD Clinical Indications for Admission to Inpatient Care (Place 'X' for any and all applicable criteria): Admission is indicated for ANY ONE of the following (1)(2)(3): [X]I. Acute exacerbation by high-risk comorbidity (e.g., pneumonia, dysrhythmia, heart failure, pleural effusion, pneumothorax) or severe underlying COPD (e.g., steroid dependent) [ ]II. Inpatient admission required rather than observation care (see Chronic Obstructive Pulmonary Disease: Observation Care) because of ANY ONE of the following: [ ]a) New or pre-existing signs or symptoms of COPD (eg, dyspnea or Tachypnea at rest or with minimal activity) that persist despite outpatient and observation care treatment [ ]b) New-onset hypoxemia (room air SaO2 less than 90%, PO2 less than 60 mm Hg (8.0 kPa)) that persists despite outpatient and observation care treatment [ ]c) Worsening of pre-existing hypoxemia (eg, new or increased requirement for supplemental oxygen to maintain oxygenation at baseline level) that persists despite outpatient and observation care treatment, with oxygen treatment needs performable only in acute inpatient setting [ ]d) Hypercarbia (PCO2 greater than 40 mm Hg (5.3 kPa))-induced respiratory acidosis (pH less than 7.35) that persists despite outpatient and observation care treatment [ ]e) Supplemental oxygen or respiratory treatments for over 24 hours that are performable only in acute inpatient setting [ ]f) Chest tube placement with active evacuation (e.g., suction, drainage) (5) [ ]g) Other condition, treatment or monitoring requiring inpatient admission [ ]III. Planned invasive surgical or diagnostic procedures requiring acute- care hospitalization [ ]IV. Acute respiratory failure (e.g., uncompensated hypercarbia, severe hypoxemia) [ ]V. Severe comorbid condition (e.g., severe steroid myopathy, acute vertebral fracture) that has acutely worsened pulmonary function [ ]. Confusion state, lethargy, obtundation, stupor or coma Extended stay beyond goal length of stay may be needed for (31)(32): [ ]a ) Respiratory Failure. [ ]b) Severe or persisting hypoxemia or hypercarbia [ ]c) Severe or persistent dyspnea [ ]d) Comorbidities (e.g. chronic heart failure, atrial fibrillation with rapid response, pneumonia) [ ]e) Malnutrition The original [facility] content created by [facility] has been revised. The portions of the content which have been revised are identified through the use of italic text or in bold, and [facility] has neither reviewed nor approved the modified material. All other unmodified content is copyright [facility]. Please see references footnoted in the original [facility] edition 2016 Admission Criteria Met?: Yes DASHA HEMPHILL Mar 05, 2017 13:16
[2017-03-05 15:08] VITALS: BP 117/61
[2017-03-05] MEDS: WARFARIN 3 MG TABLET. PO SCH (17:14)
--- NOTE | 2017-03-05 17:45 | PDOC ---
PULMONARY PROGRESS NOTES Vitals Vital Signs Date Time Temp Pulse Resp B/P Pulse Ox O2 Delivery O2 Flow Rate FiO2 03/05/17 17:13 70 117/61 03/05/17 16:00 Room Air 03/05/17 15:08 98.3 17 94 98.3 General: Alert, No acute distress Lungs: Wheezing Cardiovascular: S1 Abdomen: Soft Extremities: No Edema Labs Laboratory Tests Test 03/04/17 17:05 03/05/17 04:50 White Blood Count 6.2x10^3/uL (4.0-11.0) 3.7x10^3/uL (4.0-11.0) Red Blood Count 3.18x10^6/uL (3.50-5.40) 2.81x10^6/uL (3.50-5.40) Hemoglobin 9.2g/dL (12.0-15.5) 8.2g/dL (12.0-15.5) Hematocrit 28.5% (36.0-47.0) 25.0% (36.0-47.0) Mean Corpuscular Volume 90fL (79-100) 89fL (79-100) Mean Corpuscular Hemoglobin 29pg (25-35) 29pg (25-35) Mean Corpuscular Hemoglobin Concent 33g/dL (31-37) 33g/dL (31-37) Red Cell Distribution Width 16.1% (11.5-14.5) 15.7% (11.5-14.5) Platelet Count 199x10^3/uL (140-400) 144x10^3/uL (140-400) Neutrophils (%) (Auto) 75% (31-73) 90% (31-73) Lymphocytes (%) (Auto) 10% (24-48) 9% (24-48) Monocytes (%) (Auto) 7% (0-9) 1% (0-9) Eosinophils (%) (Auto) 7% (0-3) 0% (0-3) Basophils (%) (Auto) 1% (0-3) 0% (0-3) Neutrophils # (Auto) 4.7x10^3uL (1.8-7.7) 3.4x10^3uL (1.8-7.7) Lymphocytes # (Auto) 0.6x10^3/uL (1.0-4.8) 0.3x10^3/uL (1.0-4.8) Monocytes # (Auto) 0.5x10^3/uL (0.0-1.1) 0.0x10^3/uL (0.0-1.1) Eosinophils # (Auto) 0.4x10^3/uL (0.0-0.7) 0.0x10^3/uL (0.0-0.7) Basophils # (Auto) 0.0x10^3/uL (0.0-0.2) 0.0x10^3/uL (0.0-0.2) Sodium Level 143mmol/L (136-145) 143mmol/L (136-145) Potassium Level 4.2mmol/L (3.5-5.1) 4.7mmol/L (3.5-5.1) Chloride Level 104mmol/L (98-107) 107mmol/L (98-107) Carbon Dioxide Level 28mmol/L (21-32) 27mmol/L (21-32) Anion Gap 11 (6-14) 9 (6-14) Blood Urea Nitrogen 28mg/dL (7-20) 35mg/dL (7-20) Creatinine 2.7mg/dL (0.6-1.0) 2.7mg/dL (0.6-1.0) Estimated GFR (Cockcroft-Gault) 20.2 20.2 Glucose Level 135mg/dL (70-99) 140mg/dL (70-99) Calcium Level 8.8mg/dL (8.5-10.1) 8.2mg/dL (8.5-10.1) Troponin I Quantitative < 0.017ng/mL (0.000-0.055) Segmented Neutrophils % 94% (35-66) Band Neutrophils % 1% (0-9) Lymphocytes % 5% (24-48) Platelet Estimate Adequate (ADEQUATE) Prothrombin Time 23.6SEC (11.7-14.0) Prothromb Time International Ratio 2.3 (0.8-1.1) Digoxin Level 1.5ng/mL (0.9-2.0) Digoxin Last Dose Date 03/04/17 Digoxin Last Dose Time 0900 Laboratory Tests Test 03/05/17 04:50 White Blood Count 3.7x10^3/uL (4.0-11.0) Red Blood Count 2.81x10^6/uL (3.50-5.40) Hemoglobin 8.2g/dL (12.0-15.5) Hematocrit 25.0% (36.0-47.0) Mean Corpuscular Volume 89fL (79-100) Mean Corpuscular Hemoglobin 29pg (25-35) Mean Corpuscular Hemoglobin Concent 33g/dL (31-37) Red Cell Distribution Width 15.7% (11.5-14.5) Platelet Count 144x10^3/uL (140-400) Neutrophils (%) (Auto) 90% (31-73) Lymphocytes (%) (Auto) 9% (24-48) Monocytes (%) (Auto) 1% (0-9) Eosinophils (%) (Auto) 0% (0-3) Basophils (%) (Auto) 0% (0-3) Neutrophils # (Auto) 3.4x10^3uL (1.8-7.7) Lymphocytes # (Auto) 0.3x10^3/uL (1.0-4.8) Monocytes # (Auto) 0.0x10^3/uL (0.0-1.1) Eosinophils # (Auto) 0.0x10^3/uL (0.0-0.7) Basophils # (Auto) 0.0x10^3/uL (0.0-0.2) Segmented Neutrophils % 94% (35-66) Band Neutrophils % 1% (0-9) Lymphocytes % 5% (24-48) Platelet Estimate Adequate (ADEQUATE) Prothrombin Time 23.6SEC (11.7-14.0) Prothromb Time International Ratio 2.3 (0.8-1.1) Sodium Level 143mmol/L (136-145) Potassium Level 4.7mmol/L (3.5-5.1) Chloride Level 107mmol/L (98-107) Carbon Dioxide Level 27mmol/L (21-32) Anion Gap 9 (6-14) Blood Urea Nitrogen 35mg/dL (7-20) Creatinine 2.7mg/dL (0.6-1.0) Estimated GFR (Cockcroft-Gault) 20.2 Glucose Level 140mg/dL (70-99) Calcium Level 8.2mg/dL (8.5-10.1) Digoxin Level 1.5ng/mL (0.9-2.0) Digoxin Last Dose Date 03/04/17 Digoxin Last Dose Time 0900 Medications Active Scripts Medications Dose Route/Sig Days Date Category Dose Instructions Furosemide 20 Mg Tablet 1 Tab PO DAILY 01/16/17 Reported Gave dose this morning Take again tomorrow morning Atorvastatin Calcium 10 Mg Tablet 10 Mg PO HS 01/16/17 Reported Dose given last night Take again tonight Pantoprazole Sodium 40 Mg Tablet.dr 40 Mg PO DAILY 11/19/16 Reported Gave dose this morning Take again tomorrow morning Warfarin Sodium 3 Mg Tablet 3 Mg PO DAILY 11/19/16 Reported Gave dose yesterday evening Take again this evening [Ipratropium/Albuterol Sulfate] 3 ML Nebu 3 Ml NEB RTQID 02/09/15 Rx Feosol (Ferrous Sulfate) 325 Mg Tablet 325 Mg PO DAILYWBKFT 02/09/15 Rx FENTANYL 50mcg/hr (Fentanyl) 1 Each Patch.td72 1 Patch TP Q3DAYS 02/06/15 Reported Changed today Change again on the Vitamin D (Cholecalciferol (Vitamin D3)) 400 Unit Capsule 400 Unit PO DAILY 03/30/14 Reported Gave dose this morning Take again tomorrow morning Tylenol (Acetaminophen) 325 Mg Tablet 325 Mg PO PRN Q6HRS PRN 03/30/14 Reported Not given on this admission Take when needed Potassium Chloride 10 Meq Capsule.er 10 Meq PO BID 03/30/14 Reported Gave dose this morning Take again tonight Multaq (Dronedarone Hcl) 400 Mg Tablet 400 Mg PO BIDACLD 03/30/14 Reported Gave dose before lunch Take again tonight before dinner Amlodipine Besylate 10 Mg Tablet 10 Mg PO DAILY 03/30/14 Reported Gave this morning Take again tomorrow morning Digoxin 125 Mcg Tablet 125 Mcg PO DAILY 03/30/14 Reported Gave dose this morning Take again tomorrow morning Baclofen 10 Mg Tablet 10 Mg PO HS 03/30/14 Reported Dose given last night Take again tonight Lisinopril 20 Mg Tablet 10 Mg PO DAILY 03/30/14 Reported Gave dose this morning Take again tomorrow morning Impression . FULL NOTE DICTATED AECOPD PEBBLES GRANADO MD Mar 05, 2017 17:45
[2017-03-05 19:55] VITALS: BP 130/63
[2017-03-05] MEDS: BUDESONIDE 0.5 MG/2 ML NEBU. NEB SCH (20:00)
[2017-03-05] MEDS: ATORVASTATIN CALCIUM 10 MG TABLET. PO SCH (21:18)
[2017-03-05] MEDS: BACLOFEN 10 MG TABLET. PO SCH (21:18)
[2017-03-05 22:55] VITALS: BP 99/55
[2017-03-06 04:35] LABS: BASO % 0 % (0-3); EOS % 0 % (0-3); HEMATOCRIT 23.3 % (36.0-47.0); HEMOGLOBIN 7.7 g/dL (12.0-15.5); LYMPH # 0.3 x10^3/uL (1.0-4.8); LYMPH % 5 % (24-48); MEAN CORPUSCULAR HEMOGLOBIN 30 pg (25-35); MEAN CORPUSCULAR HGB CONC 33 g/dL (31-37); MEAN CORPUSCULAR VOLUME 89 fL (79-100); MONO % 2 % (0-9); NEUT % 92 % (31-73); PLATELET COUNT 141 x10^3/uL (140-400); RED BLOOD COUNT 2.62 x10^6/uL (3.50-5.40); RED CELL DISTRIBUTION WIDTH 16.4 % (11.5-14.5)
[2017-03-06 04:53] LABS: INR 2.6 (0.8-1.1); PROTHROMBIN TIME PATIENT 26.2 SEC (11.7-14.0)
[2017-03-06] MEDS: methylPREDNISolone SOD SUCC PF 125 MG/2 ML VIAL. IV SCH (05:28)
[2017-03-06 05:34] LABS: ALBUMIN/GLOBULIN RATIO 0.9 (1.0-1.7); CREATININE 2.2 mg/dL (0.6-1.0); GFR 25.5; POTASSIUM 4.3 mmol/L (3.5-5.1); TOTAL BILIRUBIN 0.2 mg/dL (0.2-1.0); TOTAL PROTEIN 6.5 g/dL (6.4-8.2)
[2017-03-06] MEDS: IV NORMAL SALINE 1000ML BAG 1,000 ML IV SCH ×3 (06:10→19:45)
--- NOTE | 2017-03-06 06:21 | CONS ---
DATE OF CONSULTATION: 03/05/2017 ATTENDING PHYSICIAN: Dr. Kelsey. REASON FOR CONSULTATION: The patient seen in pulmonary consultation at the request of Dr. Kelsey for increasing shortness of air. HISTORY OF PRESENT ILLNESS: The patient is an 86-year-old female with a history of COPD, quit tobacco back in November, presented with acute wheezing, no fever, cough mostly nonproductive. Per daughter who is her caregiver at home, noted some wheezing and shortness of breath. The patient normally does 4 nebulized treatments at home. I reviewed the x-ray and the x-ray is clear. The patient denies fever, chills or night sweats. PAST MEDICAL HISTORY: COPD, quit tobacco in 11/2016; dyslipidemia; previous CVA with left-sided hemiparesis; chronic dysphagia, the patient is on dysphagia diet; chronic renal insufficiency; chronic diastolic heart failure. PAST SURGICAL HISTORY: Total knee replacement and cataract removal. ALLERGIES: PENICILLIN, WHICH CAUSES HIVES. MEDICATIONS: List from home was reviewed. SOCIAL HISTORY: She quit tobacco in 11/2016. Denies any alcohol intake. FAMILY HISTORY: Remarkable for hypertension and heart disease. REVIEW OF SYSTEMS: As indicated above, otherwise, a 10-point system was reviewed and negative. CURRENT MEDICATION: List was likewise reviewed. PHYSICAL EXAMINATION: VITAL SIGNS: Stable. O2 saturation is greater than 92%, currently on room air. HEENT: Eyes, the sclerae were nonicteric. NECK: Jugular venous distention was not elevated. No lymphadenopathy. CHEST: Full expansion. LUNGS: Coarse breath sounds with expiratory wheeze. CARDIOVASCULAR: Regular rate and rhythm with S1, S2, no S3. ABDOMEN: Soft, nontender and nondistended. EXTREMITIES: No clubbing, cyanosis or edema. NEUROLOGIC: The patient has left-sided hemiparesis. IMAGING: Chest x-ray normal. LABORATORY DATA: White count was normal. Hemoglobin and hematocrit were noted. Electrolytes were noted. BUN was elevated. Creatinine was elevated. IMPRESSION: 1. Acute respiratory distress secondary to acute exacerbation of chronic obstructive pulmonary disease. 2. Acute exacerbation of chronic obstructive pulmonary disease. 3. Tobacco dependent, in remission. 4. Acute on chronic renal insufficiency. 5. Chronic atrial fibrillation. 6. Cardiovascular accident with left-sided hemiparesis. 7. Dysphagia. PLAN: 1. We will continue current steroids and nebulized treatments. 2. No need for antibiotics. 3. We will add Pulmicort. 4. Suspect some of the patient's symptoms may be related to allergies. 5. Clinically I do not think she is chronically aspirating ____. I do appreciate the privilege in sharing in the patient's care. PEBBLES GRANADO MD DR: SOFY/humza JOB#: [id number] / [id number]
[2017-03-06] MEDS: IPRATRPIUM/ALBUTEROL 0.5/2.5MG 3 ML NEBU. NEB SCH ×4 (06:54→19:41)
[2017-03-06] MEDS: BUDESONIDE 0.5 MG/2 ML NEBU. NEB SCH ×2 (06:54→19:41)
[2017-03-06 07:00] VITALS: BP 131/67
[2017-03-06] MEDS: FERROUS SULFATE 325 MG TABLET. PO SCH (08:29)
[2017-03-06] MEDS: CHOLECALCIFEROL (VITAMIN D3) 1,000 UNIT TABLET PO SCH (08:29)
[2017-03-06] MEDS: FUROSEMIDE 20 MG TABLET PO SCH (08:29)
[2017-03-06] MEDS: PANTOPRAZOLE 40 MG TABLET.DR. PO SCH (08:29)
[2017-03-06] MEDS: LISINOPRIL 10 MG TABLET PO SCH (08:30)
[2017-03-06] MEDS: POTASSIUM CHLORIDE 10 MEQ TABLET.ER. PO SCH (08:30)
[2017-03-06] MEDS: DIGOXIN 125 MCG TABLET. PO SCH (08:31)
[2017-03-06] MEDS: amLODIPine BESYLATE 10 MG TABLET PO SCH (08:31)
--- NOTE | 2017-03-06 10:04 | PDOC ---
PROGRESS NOTES Subjective Subjective feels comfortable Objective Objective Vital Signs Date Time Temp Pulse Resp B/P Pulse Ox O2 Delivery O2 Flow Rate FiO2 03/06/17 08:31 68 131/67 03/06/17 07:00 97.7 18 96 Room Air 97.7 Intake and Output 03/06/17 07:00 Intake Total 780 ml Balance 780 ml Intake Oral 780 ml # Voids 6 Physical Exam Abdomen: Normal bowel sounds, Soft Heart: Regular rate, Normal S1, Normal S2 General: No acute distress Lungs: Normal air movement MUSCULOSKELETAL: Osteoarthritic changes both hands Neck: Supple Neuro: Normal speech Psych/Mental Status: Mood NL Skin: No significant lesion Diagnosis Problem List Problems Medical Problems: (1) COPD exacerbation Status: Acute Assessment Assessment Problems Medical Problems: (1) COPD exacerbation Status: Acute FINAL IMPRESSION: 1. Chronic obstructive pulmonary disease with acute exacerbation. 2. Chronic history of smoking in the past, quit a couple of years ago. 3. Acute on chronic renal failure, usually around 1.7, now it is 2.7. 4. Chronic atrial fibrillation, on Multaq and anticoagulation with Coumadin. 5. Hypertension. 6. Hyperlipidemia. 7. Anemia of chronic disease. 8. History of cerebrovascular accident with Rt hemiparesis. PLAN: Hb 7.4 today , hematology consult pt on coumadin inr stable, no gi bleed. iv steroids tid. cr 2,2 trending down with fluids. sono kidneys. At this time, admit to hospital and hydrate with IV fluids, IV Solu-Medrol, DuoNeb 4 times daily and monitor kidney functions and see how her kidneys improve. Also monitor INR. Problems: Plan Plan of Care Problems Medical Problems: (1) COPD exacerbation Status: Acute Comment Review of Relevant I have reviewed the following items miriam (where applicable) has been applied. Labs Laboratory Tests Test 03/06/17 04:10 White Blood Count 5.0x10^3/uL (4.0-11.0) Red Blood Count 2.62x10^6/uL (3.50-5.40) Hemoglobin 7.7g/dL (12.0-15.5) Hematocrit 23.3% (36.0-47.0) Mean Corpuscular Volume 89fL (79-100) Mean Corpuscular Hemoglobin 30pg (25-35) Mean Corpuscular Hemoglobin Concent 33g/dL (31-37) Red Cell Distribution Width 16.4% (11.5-14.5) Platelet Count 141x10^3/uL (140-400) Neutrophils (%) (Auto) 92% (31-73) Lymphocytes (%) (Auto) 5% (24-48) Monocytes (%) (Auto) 2% (0-9) Eosinophils (%) (Auto) 0% (0-3) Basophils (%) (Auto) 0% (0-3) Neutrophils # (Auto) 4.6x10^3uL (1.8-7.7) Lymphocytes # (Auto) 0.3x10^3/uL (1.0-4.8) Monocytes # (Auto) 0.1x10^3/uL (0.0-1.1) Eosinophils # (Auto) 0.0x10^3/uL (0.0-0.7) Basophils # (Auto) 0.0x10^3/uL (0.0-0.2) Prothrombin Time 26.2SEC (11.7-14.0) Prothromb Time International Ratio 2.6 (0.8-1.1) Sodium Level 145mmol/L (136-145) Potassium Level 4.3mmol/L (3.5-5.1) Chloride Level 110mmol/L (98-107) Carbon Dioxide Level 26mmol/L (21-32) Anion Gap 9 (6-14) Blood Urea Nitrogen 44mg/dL (7-20) Creatinine 2.2mg/dL (0.6-1.0) Estimated GFR (Cockcroft-Gault) 25.5 BUN/Creatinine Ratio 20 (6-20) Glucose Level 153mg/dL (70-99) Calcium Level 8.0mg/dL (8.5-10.1) Total Bilirubin 0.2mg/dL (0.2-1.0) Aspartate Amino Transf (AST/SGOT) 29U/L (15-37) Alanine Aminotransferase (ALT/SGPT) 17U/L (14-59) Alkaline Phosphatase 47U/L (46-116) Total Protein 6.5g/dL (6.4-8.2) Albumin 3.0g/dL (3.4-5.0) Albumin/Globulin Ratio 0.9 (1.0-1.7) Medications Current Medications Atorvastatin Calcium (Lipitor) 10 mg HS PO Last administered on 03/05/17 21:18 ; Start 03/05/17 at 21:00 Baclofen (Lioresal) 10 mg HS PO Last administered on 03/05/17 21:18; Start at 21:00 Budesonide (Pulmicort) 0.5 mg RTBID NEB Last administered on 03/06/17 06:54; Start 03/05/17 at 20:00 Dronedarone (Multaq) 400 mg BIDACLD PO Last administered on 03/05/17 17:13; Start 03/05/17 at 11:30 Fentanyl (Duragesic 50mcg/ Hr Patch) 1 patch Q3DAYS TD ; Start 03/07/17 at 09:00 Warfarin Sodium (Coumadin Per Physician) 1 each PRN DAILY PRN MC SEE COMMENTS Last administered on 03/05/17 15:45; Start 03/05/17 at 16:00 Warfarin Sodium (Coumadin) 3 mg DAILY16 PO Last administered on 03/05/17 17:14 ; Start 03/05/17 at 16:00 Vitals/I & O Vital Sign - Last 24 Hours 03/05/17 03/05/17 03/05/17 03/05/17 10:53 11:20 12:04 15:08 Temp 98.4 98.3 98.4 98.3 Pulse 62 62 70 Resp 16 17 B/P 107/57 107/57 117/61 Pulse Ox 97 95 94 O2 Delivery Room Air Room Air Room Air 03/05/17 03/05/17 03/05/17 03/05/17 16:00 17:13 19:35 19:55 Temp 98.6 98.6 Pulse 70 76 Resp 18 B/P 117/61 130/63 Pulse Ox 96 96 O2 Delivery Room Air Room Air Room Air 03/05/17 03/06/17 03/06/17 03/06/17 22:55 06:54 07:00 08:30 Temp 99.2 97.7 99.2 97.7 Pulse 76 68 68 Resp 18 18 B/P 99/55 131/67 131/67 Pulse Ox 94 97 96 O2 Delivery Room Air Room Air Room Air 03/06/17 03/06/17 08:31 08:31 Pulse 68 68 B/P 131/67 131/67 Intake and Output 03/05/17 03/05/17 03/06/17 15:00 23:00 07:00 Intake Total 120 ml 360 ml 300 ml Balance 120 ml 360 ml 300 ml ELYSSA CHU MD Mar 06, 2017 10:04
[2017-03-06 11:00] VITALS: BP 140/71
[2017-03-06] MEDS ORDERED: IRON SUCROSE COMPLEX 500 MG in IV NORMAL SALINE 250ML 250 ML IV ONE (11:00)
[2017-03-06 11:16] LABS: % SAT IRON 17 % (15-34); IRON,SERUM 28 ug/dL (50-170)
[2017-03-06] MEDS: DRONEDARONE HCL 400 MG TABLET PO SCH ×2 (12:35→16:13)
--- NOTE | 2017-03-06 14:21 | PDOC ---
PULMONARY PROGRESS NOTES Subjective pt feels better Vitals Vital Signs Date Time Temp Pulse Resp B/P Pulse Ox O2 Delivery O2 Flow Rate FiO2 03/06/17 12:35 75 140/71 03/06/17 11:10 97 Room Air 03/06/17 11:00 98.3 18 98.3 General: Alert, No acute distress Lungs: Wheezing Cardiovascular: S1 Abdomen: Soft Neuro Exam: Alert Extremities: No Edema Skin: Warm Labs Laboratory Tests Test 03/04/17 17:05 03/05/17 04:50 03/06/17 04:10 White Blood Count 6.2x10^3/uL (4.0-11.0) 3.7x10^3/uL (4.0-11.0) 5.0x10^3/uL (4.0-11.0) Red Blood Count 3.18x10^6/uL (3.50-5.40) 2.81x10^6/uL (3.50-5.40) 2.62x10^6/uL (3.50-5.40) Hemoglobin 9.2g/dL (12.0-15.5) 8.2g/dL (12.0-15.5) 7.7g/dL (12.0-15.5) Hematocrit 28.5% (36.0-47.0) 25.0% (36.0-47.0) 23.3% (36.0-47.0) Mean Corpuscular Volume 90fL (79-100) 89fL (79-100) 89fL (79-100) Mean Corpuscular Hemoglobin 29pg (25-35) 29pg (25-35) 30pg (25-35) Mean Corpuscular Hemoglobin Concent 33g/dL (31-37) 33g/dL (31-37) 33g/dL (31-37) Red Cell Distribution Width 16.1% (11.5-14.5) 15.7% (11.5-14.5) 16.4% (11.5-14.5) Platelet Count 199x10^3/uL (140-400) 144x10^3/uL (140-400) 141x10^3/uL (140-400) Neutrophils (%) (Auto) 75% (31-73) 90% (31-73) 92% (31-73) Lymphocytes (%) (Auto) 10% (24-48) 9% (24-48) 5% (24-48) Monocytes (%) (Auto) 7% (0-9) 1% (0-9) 2% (0-9) Eosinophils (%) (Auto) 7% (0-3) 0% (0-3) 0% (0-3) Basophils (%) (Auto) 1% (0-3) 0% (0-3) 0% (0-3) Neutrophils # (Auto) 4.7x10^3uL (1.8-7.7) 3.4x10^3uL (1.8-7.7) 4.6x10^3uL (1.8-7.7) Lymphocytes # (Auto) 0.6x10^3/uL (1.0-4.8) 0.3x10^3/uL (1.0-4.8) 0.3x10^3/uL (1.0-4.8) Monocytes # (Auto) 0.5x10^3/uL (0.0-1.1) 0.0x10^3/uL (0.0-1.1) 0.1x10^3/uL (0.0-1.1) Eosinophils # (Auto) 0.4x10^3/uL (0.0-0.7) 0.0x10^3/uL (0.0-0.7) 0.0x10^3/uL (0.0-0.7) Basophils # (Auto) 0.0x10^3/uL (0.0-0.2) 0.0x10^3/uL (0.0-0.2) 0.0x10^3/uL (0.0-0.2) Sodium Level 143mmol/L (136-145) 143mmol/L (136-145) 145mmol/L (136-145) Potassium Level 4.2mmol/L (3.5-5.1) 4.7mmol/L (3.5-5.1) 4.3mmol/L (3.5-5.1) Chloride Level 104mmol/L (98-107) 107mmol/L (98-107) 110mmol/L (98-107) Carbon Dioxide Level 28mmol/L (21-32) 27mmol/L (21-32) 26mmol/L (21-32) Anion Gap 11 (6-14) 9 (6-14) 9 (6-14) Blood Urea Nitrogen 28mg/dL (7-20) 35mg/dL (7-20) 44mg/dL (7-20) Creatinine 2.7mg/dL (0.6-1.0) 2.7mg/dL (0.6-1.0) 2.2mg/dL (0.6-1.0) Estimated GFR (Cockcroft-Gault) 20.2 20.2 25.5 Glucose Level 135mg/dL (70-99) 140mg/dL (70-99) 153mg/dL (70-99) Calcium Level 8.8mg/dL (8.5-10.1) 8.2mg/dL (8.5-10.1) 8.0mg/dL (8.5-10.1) Troponin I Quantitative < 0.017ng/mL (0.000-0.055) Segmented Neutrophils % 94% (35-66) Band Neutrophils % 1% (0-9) Lymphocytes % 5% (24-48) Platelet Estimate Adequate (ADEQUATE) Prothrombin Time 23.6SEC (11.7-14.0) 26.2SEC (11.7-14.0) Prothromb Time International Ratio 2.3 (0.8-1.1) 2.6 (0.8-1.1) Digoxin Level 1.5ng/mL (0.9-2.0) Digoxin Last Dose Date 03/04/17 Digoxin Last Dose Time 0900 BUN/Creatinine Ratio 20 (6-20) Iron Level 28ug/dL (50-170) Total Iron Binding Capacity 169ug/dL (250-450) Iron Saturation 17% (15-34) Ferritin 226ng/mL (8-252) Total Bilirubin 0.2mg/dL (0.2-1.0) Aspartate Amino Transf (AST/SGOT) 29U/L (15-37) Alanine Aminotransferase (ALT/SGPT) 17U/L (14-59) Alkaline Phosphatase 47U/L (46-116) Total Protein 6.5g/dL (6.4-8.2) Albumin 3.0g/dL (3.4-5.0) Albumin/Globulin Ratio 0.9 (1.0-1.7) Laboratory Tests Test 03/06/17 04:10 White Blood Count 5.0x10^3/uL (4.0-11.0) Red Blood Count 2.62x10^6/uL (3.50-5.40) Hemoglobin 7.7g/dL (12.0-15.5) Hematocrit 23.3% (36.0-47.0) Mean Corpuscular Volume 89fL (79-100) Mean Corpuscular Hemoglobin 30pg (25-35) Mean Corpuscular Hemoglobin Concent 33g/dL (31-37) Red Cell Distribution Width 16.4% (11.5-14.5) Platelet Count 141x10^3/uL (140-400) Neutrophils (%) (Auto) 92% (31-73) Lymphocytes (%) (Auto) 5% (24-48) Monocytes (%) (Auto) 2% (0-9) Eosinophils (%) (Auto) 0% (0-3) Basophils (%) (Auto) 0% (0-3) Neutrophils # (Auto) 4.6x10^3uL (1.8-7.7) Lymphocytes # (Auto) 0.3x10^3/uL (1.0-4.8) Monocytes # (Auto) 0.1x10^3/uL (0.0-1.1) Eosinophils # (Auto) 0.0x10^3/uL (0.0-0.7) Basophils # (Auto) 0.0x10^3/uL (0.0-0.2) Prothrombin Time 26.2SEC (11.7-14.0) Prothromb Time International Ratio 2.6 (0.8-1.1) Sodium Level 145mmol/L (136-145) Potassium Level 4.3mmol/L (3.5-5.1) Chloride Level 110mmol/L (98-107) Carbon Dioxide Level 26mmol/L (21-32) Anion Gap 9 (6-14) Blood Urea Nitrogen 44mg/dL (7-20) Creatinine 2.2mg/dL (0.6-1.0) Estimated GFR (Cockcroft-Gault) 25.5 BUN/Creatinine Ratio 20 (6-20) Glucose Level 153mg/dL (70-99) Calcium Level 8.0mg/dL (8.5-10.1) Iron Level 28ug/dL (50-170) Total Iron Binding Capacity 169ug/dL (250-450) Iron Saturation 17% (15-34) Ferritin 226ng/mL (8-252) Total Bilirubin 0.2mg/dL (0.2-1.0) Aspartate Amino Transf (AST/SGOT) 29U/L (15-37) Alanine Aminotransferase (ALT/SGPT) 17U/L (14-59) Alkaline Phosphatase 47U/L (46-116) Total Protein 6.5g/dL (6.4-8.2) Albumin 3.0g/dL (3.4-5.0) Albumin/Globulin Ratio 0.9 (1.0-1.7) Medications Active Scripts Medications Dose Route/Sig Days Date Category Dose Instructions Furosemide 20 Mg Tablet 1 Tab PO DAILY 01/16/17 Reported Gave dose this morning Take again tomorrow morning Atorvastatin Calcium 10 Mg Tablet 10 Mg PO HS 01/16/17 Reported Dose given last night Take again tonight Pantoprazole Sodium 40 Mg Tablet.dr 40 Mg PO DAILY 11/19/16 Reported Gave dose this morning Take again tomorrow morning Warfarin Sodium 3 Mg Tablet 3 Mg PO DAILY 11/19/16 Reported Gave dose yesterday evening Take again this evening [Ipratropium/Albuterol Sulfate] 3 ML Nebu 3 Ml NEB RTQID 02/09/15 Rx Feosol (Ferrous Sulfate) 325 Mg Tablet 325 Mg PO DAILYWBKFT 02/09/15 Rx FENTANYL 50mcg/hr (Fentanyl) 1 Each Patch.td72 1 Patch TP Q3DAYS 02/06/15 Reported Changed today Change again on the Vitamin D (Cholecalciferol (Vitamin D3)) 400 Unit Capsule 400 Unit PO DAILY 03/30/14 Reported Gave dose this morning Take again tomorrow morning Tylenol (Acetaminophen) 325 Mg Tablet 325 Mg PO PRN Q6HRS PRN 03/30/14 Reported Not given on this admission Take when needed Potassium Chloride 10 Meq Capsule.er 10 Meq PO BID 03/30/14 Reported Gave dose this morning Take again tonight Multaq (Dronedarone Hcl) 400 Mg Tablet 400 Mg PO BIDACLD 03/30/14 Reported Gave dose before lunch Take again tonight before dinner Amlodipine Besylate 10 Mg Tablet 10 Mg PO DAILY 03/30/14 Reported Gave this morning Take again tomorrow morning Digoxin 125 Mcg Tablet 125 Mcg PO DAILY 03/30/14 Reported Gave dose this morning Take again tomorrow morning Baclofen 10 Mg Tablet 10 Mg PO HS 03/30/14 Reported Dose given last night Take again tonight Lisinopril 20 Mg Tablet 10 Mg PO DAILY 03/30/14 Reported Gave dose this morning Take again tomorrow morning Impression . 1. Acute respiratory distress secondary to acute exacerbation of chronic obstructive pulmonary disease. 2. Acute exacerbation of chronic obstructive pulmonary disease. 3. Tobacco dependent, in remission. 4. Acute on chronic renal insufficiency. 5. Chronic atrial fibrillation. 6. Cardiovascular accident with left-sided hemiparesis. 7. Dysphagia. Plan . pt less wheezing today 1. We will continue current steroids and nebulized treatments. 2. No need for antibiotics. 3. We will add Pulmicort. 4. Suspect some of the patient's symptoms may be related to allergies. 5. Clinically I do not think she is chronically aspirating PEBBLES GRANADO MD Mar 06, 2017 14:21
[2017-03-06 15:00] VITALS: BP 112/52
--- NOTE | 2017-03-06 15:20 | PDOC ---
Provider Note Provider Note Onc consult dictated- [id number] Chronic normocytic anemia- stable since 2013 Mild iron deficiency s/p Venofer 1000 mg in Nov, will give 500 mg now. Due to advanced age/ comorbidities would monitor. Hgb electrophoresis also drawn. MARIPOSA CONDON DO Mar 06, 2017 15:20
[2017-03-06] MEDS: methylPREDNISolone SOD SUCC PF 40 MG/ML VIAL. IV SCH ×2 (16:13→21:41)
[2017-03-06] MEDS: WARFARIN 3 MG TABLET. PO SCH (16:14)
[2017-03-06 19:00] VITALS: BP 129/67
[2017-03-06] MEDS: ATORVASTATIN CALCIUM 10 MG TABLET. PO SCH (21:41)
[2017-03-06] MEDS: BACLOFEN 10 MG TABLET. PO SCH (21:41)
[2017-03-06 23:00] VITALS: BP 130/66
[2017-03-07 03:00] VITALS: BP 139/68
[2017-03-07 04:07] LABS: BASO % 0 % (0-3); EOS % 0 % (0-3); HEMATOCRIT 23.8 % (36.0-47.0); HEMOGLOBIN 7.9 g/dL (12.0-15.5); LYMPH # 0.2 x10^3/uL (1.0-4.8); LYMPH % 3 % (24-48); MEAN CORPUSCULAR HEMOGLOBIN 30 pg (25-35); MEAN CORPUSCULAR HGB CONC 33 g/dL (31-37); MEAN CORPUSCULAR VOLUME 89 fL (79-100); MONO % 2 % (0-9); NEUT % 95 % (31-73); PLATELET COUNT 143 x10^3/uL (140-400); RED BLOOD COUNT 2.67 x10^6/uL (3.50-5.40); RED CELL DISTRIBUTION WIDTH 16.5 % (11.5-14.5); WHITE BLOOD COUNT 6.1 x10^3/uL (4.0-11.0)
--- NOTE | 2017-03-07 04:15 | CONS ---
DATE OF CONSULTATION: 03/06/2017 REFERRING PROVIDER: Dr. Kelsey. REASON FOR CONSULTATION: Chronic anemia. HISTORY OF PRESENT ILLNESS: The patient is an 86-year-old female whom I had the privilege of seeing in 11/2016 when she was admitted for pneumonia. At that time, I evaluated her for her chronic anemia, which has occurred dating back to 2013 with a hemoglobin in the range of 7-9. At that time, her iron studies were found to be low and I gave 1000 mg of Venofer. Erythropoietin, folic acid, TSH, B12 were all normal. I have rechecked iron studies now and they remain low/normal. She is admitted for possible COPD/allergy exacerbation. She denies any shortness of breath or chest pain to me at this time. Last colonoscopy she believes was around the age of 79. She does not desire invasive tests. PAST MEDICAL HISTORY: Hypertension, hyperlipidemia, stroke, heart failure, COPD, mild chronic kidney disease, debility, mitral regurgitation, pulmonary hypertension, atrial fibrillation. PAST SURGICAL HISTORY: Cataract surgery, knee surgery. FAMILY HISTORY: Hypertension and heart disease. SOCIAL HISTORY: Previously smoked for 50 years, but quit in 11/2016. Lives with her daughter. Denies alcohol use. ALLERGIES: PENICILLINS. CURRENT MEDICATIONS: Duragesic, Solu-Medrol, baclofen, atorvastatin, budesonide, Coumadin, Multaq, vitamin D, lisinopril, digoxin, amlodipine, oral iron, Protonix. REVIEW OF SYSTEMS: Ten-point review of systems completed and unremarkable with the exception of some chronic fatigue. PHYSICAL EXAMINATION: VITAL SIGNS: Temperature 98.3, pulse 75, respiratory rate 18, blood pressure 140/71, 97% O2 on room air. GENERAL: She is alert and oriented, in no distress at this time. HEENT: Extraocular muscles are intact. Sclerae are without icterus. Mucous membranes are moist. CARDIOVASCULAR: Heart is irregularly irregular, but rate controlled. LUNGS: Clear to auscultation bilaterally. ABDOMEN: Soft, nontender. EXTREMITIES: No edema. NEUROLOGIC: No focal deficits. IMAGING/LABORATORY DATA: Hemoglobin remains unchanged from her baseline with hemoglobin 7.7. WBC and platelet count are normal. I added on iron studies again this admission, which shows low/normal levels, improved from last admission, serum iron 28, TIBC 169, percent iron saturation 17, ferritin 226. Creatinine 2.2. ASSESSMENT AND PLAN: The patient is an 86-year-old female with the following medical problems: Chronic anemia, unchanged from her baseline since 2013. Her iron levels are improved but remain low/normal, so I am going to give her another dose of 500 mg of Venofer today. Last admission, she reported to me previous colonoscopy around the age of 79. Given her advanced age and overall stability in her hemoglobin, I do not recommend endoscopies at this point without any symptomatic bleeding. She does not desire invasive testing. Overall, she appears very stable. I am going to check a hemoglobin electrophoresis to see if she has any inherited causes of baseline hemoglobin remaining mildly low as well. Thank you for allowing me to once again play a role in her care. MARIPOSA CONDON DO DR: Evie JOB#: [id number] / [id number] ONEL
[2017-03-07 04:21] LABS: CREATININE 1.9 mg/dL (0.6-1.0); GFR 30.3; POTASSIUM 3.8 mmol/L (3.5-5.1)
[2017-03-07] MEDS: IV NORMAL SALINE 1000ML BAG 1,000 ML IV SCH ×2 (05:55→17:25)
[2017-03-07] MEDS: methylPREDNISolone SOD SUCC PF 40 MG/ML VIAL. IV SCH ×3 (05:57→21:34)
[2017-03-07 07:00] VITALS: BP 138/72
[2017-03-07] MEDS: IPRATRPIUM/ALBUTEROL 0.5/2.5MG 3 ML NEBU. NEB SCH ×4 (07:11→20:23)
[2017-03-07] MEDS: BUDESONIDE 0.5 MG/2 ML NEBU. NEB SCH ×2 (08:00→20:23)
[2017-03-07] MEDS: LISINOPRIL 10 MG TABLET PO SCH (08:26)
[2017-03-07] MEDS: PANTOPRAZOLE 40 MG TABLET.DR. PO SCH (08:26)
[2017-03-07] MEDS: FERROUS SULFATE 325 MG TABLET. PO SCH (08:26)
[2017-03-07] MEDS: CHOLECALCIFEROL (VITAMIN D3) 1,000 UNIT TABLET PO SCH (08:27)
[2017-03-07] MEDS: DIGOXIN 125 MCG TABLET. PO SCH (08:27)
[2017-03-07] MEDS: amLODIPine BESYLATE 10 MG TABLET PO SCH (08:28)
[2017-03-07] MEDS ORDERED: fentaNYL 50MCG/HR PATCH 1 PATCH PATCH.TD72 TD SCH (09:00)
--- NOTE | 2017-03-07 09:57 | PDOC ---
PROGRESS NOTES Subjective Subjective c/c - f/u of Anemia due to CKD ROS - no bleed. Objective Objective Vital Signs Date Time Temp Pulse Resp B/P Pulse Ox O2 Delivery O2 Flow Rate FiO2 03/07/17 08:28 63 139/68 03/07/17 07:13 98 Room Air 03/07/17 07:00 98.0 14 98.0 Intake and Output 03/07/17 07:00 Intake Total 600 ml Balance 600 ml Intake Oral 600 ml # Voids 7 # Bowel Movements 3 Physical Exam Heart: Normal S1, Normal S2 General: Alert, Oriented X3 Lungs: Clear to auscultation Neuro: Normal speech Assessment Assessment Problems Medical Problems: (1) COPD exacerbation Status: Acute 1. Anemia due to CKD - Hb now getting worse at 7.9. Start Aranesp today and then monthly. I d/w pt the risks and benefits and she understands and agrees to pursue with aranesp. 2. CKD 3. Acute respiratory distress secondary to acute exacerbation of chronic obstructive pulmonary disease. Comment Review of Relevant I have reviewed the following items miriam (where applicable) has been applied. Labs Laboratory Tests Test 03/06/17 04:10 03/07/17 03:43 White Blood Count 5.0x10^3/uL (4.0-11.0) 6.1x10^3/uL (4.0-11.0) Red Blood Count 2.62x10^6/uL (3.50-5.40) 2.67x10^6/uL (3.50-5.40) Hemoglobin 7.7g/dL (12.0-15.5) 7.9g/dL (12.0-15.5) Hematocrit 23.3% (36.0-47.0) 23.8% (36.0-47.0) Mean Corpuscular Volume 89fL (79-100) 89fL (79-100) Mean Corpuscular Hemoglobin 30pg (25-35) 30pg (25-35) Mean Corpuscular Hemoglobin Concent 33g/dL (31-37) 33g/dL (31-37) Red Cell Distribution Width 16.4% (11.5-14.5) 16.5% (11.5-14.5) Platelet Count 141x10^3/uL (140-400) 143x10^3/uL (140-400) Neutrophils (%) (Auto) 92% (31-73) 95% (31-73) Lymphocytes (%) (Auto) 5% (24-48) 3% (24-48) Monocytes (%) (Auto) 2% (0-9) 2% (0-9) Eosinophils (%) (Auto) 0% (0-3) 0% (0-3) Basophils (%) (Auto) 0% (0-3) 0% (0-3) Neutrophils # (Auto) 4.6x10^3uL (1.8-7.7) 5.7x10^3uL (1.8-7.7) Lymphocytes # (Auto) 0.3x10^3/uL (1.0-4.8) 0.2x10^3/uL (1.0-4.8) Monocytes # (Auto) 0.1x10^3/uL (0.0-1.1) 0.1x10^3/uL (0.0-1.1) Eosinophils # (Auto) 0.0x10^3/uL (0.0-0.7) 0.0x10^3/uL (0.0-0.7) Basophils # (Auto) 0.0x10^3/uL (0.0-0.2) 0.0x10^3/uL (0.0-0.2) Prothrombin Time 26.2SEC (11.7-14.0) Prothromb Time International Ratio 2.6 (0.8-1.1) Sodium Level 145mmol/L (136-145) 148mmol/L (136-145) Potassium Level 4.3mmol/L (3.5-5.1) 3.8mmol/L (3.5-5.1) Chloride Level 110mmol/L (98-107) 112mmol/L (98-107) Carbon Dioxide Level 26mmol/L (21-32) 27mmol/L (21-32) Anion Gap 9 (6-14) 9 (6-14) Blood Urea Nitrogen 44mg/dL (7-20) 47mg/dL (7-20) Creatinine 2.2mg/dL (0.6-1.0) 1.9mg/dL (0.6-1.0) Estimated GFR (Cockcroft-Gault) 25.5 30.3 BUN/Creatinine Ratio 20 (6-20) Glucose Level 153mg/dL (70-99) 137mg/dL (70-99) Calcium Level 8.0mg/dL (8.5-10.1) 8.0mg/dL (8.5-10.1) Iron Level 28ug/dL (50-170) Total Iron Binding Capacity 169ug/dL (250-450) Iron Saturation 17% (15-34) Ferritin 226ng/mL (8-252) Total Bilirubin 0.2mg/dL (0.2-1.0) Aspartate Amino Transf (AST/SGOT) 29U/L (15-37) Alanine Aminotransferase (ALT/SGPT) 17U/L (14-59) Alkaline Phosphatase 47U/L (46-116) Total Protein 6.5g/dL (6.4-8.2) Albumin 3.0g/dL (3.4-5.0) Albumin/Globulin Ratio 0.9 (1.0-1.7) Laboratory Tests Test 03/07/17 03:43 White Blood Count 6.1x10^3/uL (4.0-11.0) Red Blood Count 2.67x10^6/uL (3.50-5.40) Hemoglobin 7.9g/dL (12.0-15.5) Hematocrit 23.8% (36.0-47.0) Mean Corpuscular Volume 89fL (79-100) Mean Corpuscular Hemoglobin 30pg (25-35) Mean Corpuscular Hemoglobin Concent 33g/dL (31-37) Red Cell Distribution Width 16.5% (11.5-14.5) Platelet Count 143x10^3/uL (140-400) Neutrophils (%) (Auto) 95% (31-73) Lymphocytes (%) (Auto) 3% (24-48) Monocytes (%) (Auto) 2% (0-9) Eosinophils (%) (Auto) 0% (0-3) Basophils (%) (Auto) 0% (0-3) Neutrophils # (Auto) 5.7x10^3uL (1.8-7.7) Lymphocytes # (Auto) 0.2x10^3/uL (1.0-4.8) Monocytes # (Auto) 0.1x10^3/uL (0.0-1.1) Eosinophils # (Auto) 0.0x10^3/uL (0.0-0.7) Basophils # (Auto) 0.0x10^3/uL (0.0-0.2) Sodium Level 148mmol/L (136-145) Potassium Level 3.8mmol/L (3.5-5.1) Chloride Level 112mmol/L (98-107) Carbon Dioxide Level 27mmol/L (21-32) Anion Gap 9 (6-14) Blood Urea Nitrogen 47mg/dL (7-20) Creatinine 1.9mg/dL (0.6-1.0) Estimated GFR (Cockcroft-Gault) 30.3 Glucose Level 137mg/dL (70-99) Calcium Level 8.0mg/dL (8.5-10.1) Medications Current Medications Albuterol/ Ipratropium (Duoneb) 3 ml 1X ONCE NEB Last administered on 18:22; Start 03/04/17 at 18:15; Stop 03/04/17 at 18:16; Status DC Methylprednisolone Sodium Succinate (Solu-Medrol 125mg Vial) 125 mg 1X ONCE IV Last administered on 03/04/17 18:14; Start 03/04/17 at 18:15; Stop 03/04/17 at 18:16; Status DC Ondansetron HCl (Zofran) 4 mg PRN Q8HRS PRN IV NAUSEA/VOMITING; Start 03/04/17 at 18:15; Stop 03/05/17 at 18:14; Status DC Albuterol/ Ipratropium (Duoneb) 3 ml RTQID NEB Last administered on 03/04/17 20:46; Start 03/04/17 at 20:00; Stop 03/04/17 at 23:15; Status DC Acetaminophen (Tylenol) 325 mg PRN Q6HRS PRN PO PAIN; Start 03/04/17 at 22:45 Amlodipine Besylate (Norvasc) 10 mg DAILY PO Last administered on 03/07/17 08: 28; Start 03/05/17 at 09:00 Atorvastatin Calcium (Lipitor) 10 mg HS PO Last administered on 03/06/17 21:41 ; Start 03/05/17 at 21:00 Baclofen (Lioresal) 10 mg HS PO Last administered on 03/06/17 21:41; Start at 21:00 Digoxin (Lanoxin) 125 mcg DAILY PO Last administered on 03/07/17 08:27; Start 03/05/17 at 09:00 Dronedarone (Multaq) 400 mg BIDACLD PO Last administered on 03/06/17 16:13; Start 03/05/17 at 11:30 Fentanyl (Duragesic 50mcg/ Hr Patch) 1 patch Q3DAYS TD Last administered on 08:25; Start 03/07/17 at 09:00 Ferrous Sulfate (Feosol) 325 mg DAILYWBKFT PO Last administered on 03/07/17 08 :26; Start 03/05/17 at 08:00 Furosemide (Lasix) 20 mg DAILY PO Last administered on 03/06/17 08:29; Start 03/05/17 at 09:00; Stop 03/06/17 at 10:07; Status DC Lisinopril (Prinivil) 10 mg DAILY PO Last administered on 03/07/17 08:26; Start 03/05/17 at 09:00 Pantoprazole Sodium (Protonix) 40 mg DAILYAC PO Last administered on 03/07/17 08:26; Start 03/05/17 at 07:30 Warfarin Sodium (Coumadin) 3 mg DAILY16 PO Last administered on 03/06/17 16:14 ; Start 03/05/17 at 16:00 Vitamin D (Vitamin D3) 500 unit DAILY PO Last administered on 03/07/17 08:27; Start 03/05/17 at 09:00 Potassium Chloride (Klor-Con) 10 meq BIDWMEALS PO Last administered on 08:30; Start 03/05/17 at 08:00; Stop 03/06/17 at 10:07; Status DC Non-Formulary Medication 3 ml RTQID NEB ; Start 03/05/17 at 08:00; Status UNV Methylprednisolone Sodium Succinate (Solu-Medrol 125mg Vial) 80 mg Q8HRS IV Last administered on 03/06/17 05:28; Start 03/04/17 at 23:15; Stop 03/06/17 at 10:07; Status DC Albuterol/ Ipratropium (Duoneb) 3 ml RTQID NEB Last administered on 03/07/17 07:11; Start 03/05/17 at 08:00 Albuterol Sulfate 2.5 mg 2.5 mg PRN QID PRN NEB SHORTNESS OF BREATH; Start at 22:45 Sodium Chloride (Iv Sodium Chloride 0.9% 1000ml Bag) 1,000 ml @ 100 mls/hr Q10H IV Last administered on 03/07/17 05:55; Start 03/04/17 at 23:00 Warfarin Sodium (Coumadin Per Physician) 1 each PRN DAILY PRN MC SEE COMMENTS Last administered on 03/06/17 14:47; Start 03/05/17 at 16:00 Budesonide (Pulmicort) 0.5 mg RTBID NEB Last administered on 03/06/17 19:41; Start 03/05/17 at 20:00 Methylprednisolone Sodium Succinate 40 mg 40 mg Q8HRS IV Last administered on 05:57; Start 03/06/17 at 14:00 Iron Sucrose/ Sodium Chloride (Venofer/Iv Sodium Chloride 0.9% 250ml) 275 ml @ 78.571 mls/ hr 1X ONCE IV Last administered on 03/06/17 12:34; Start at 11:00; Stop 03/06/17 at 14:29; Status DC Active Scripts Active [Ipratropium/Albuterol Sulfate] 3 ML Nebu 3 Ml NEB RTQID Feosol (Ferrous Sulfate) 325 Mg Tablet 325 Mg PO DAILYWBKFT Reported Furosemide 20 Mg Tablet 1 Tab PO DAILY Gave dose this morning Take again tomorrow morning Atorvastatin Calcium 10 Mg Tablet 10 Mg PO HS Dose given last night Take again tonight Pantoprazole Sodium 40 Mg Tablet.dr 40 Mg PO DAILY Gave dose this morning Take again tomorrow morning Warfarin Sodium 3 Mg Tablet 3 Mg PO DAILY Gave dose yesterday evening Take again this evening FENTANYL 50mcg/hr (Fentanyl) 1 Each Patch.td72 1 Patch TP Q3DAYS Changed today Change again on the Vitamin D (Cholecalciferol (Vitamin D3)) 400 Unit Capsule 400 Unit PO DAILY Gave dose this morning Take again tomorrow morning Tylenol (Acetaminophen) 325 Mg Tablet 325 Mg PO PRN Q6HRS PRN Not given on this admission Take when needed Potassium Chloride 10 Meq Capsule.er 10 Meq PO BID Gave dose this morning Take again tonight Multaq (Dronedarone Hcl) 400 Mg Tablet 400 Mg PO BIDACLD Gave dose before lunch Take again tonight before dinner Amlodipine Besylate 10 Mg Tablet 10 Mg PO DAILY Gave this morning Take again tomorrow morning Digoxin 125 Mcg Tablet 125 Mcg PO DAILY Gave dose this morning Take again tomorrow morning Baclofen 10 Mg Tablet 10 Mg PO HS Dose given last night Take again tonight Lisinopril 20 Mg Tablet 10 Mg PO DAILY Gave dose this morning Take again tomorrow morning Vitals/I & O Vital Sign - Last 24 Hours 03/06/17 03/06/17 03/06/17 03/06/17 11:00 11:10 12:35 15:00 Temp 98.3 98.3 Pulse 75 75 Resp 18 B/P 140/71 140/71 Pulse Ox 97 97 O2 Delivery Room Air Room Air Room Air 03/06/17 03/06/17 03/06/17 03/06/17 15:00 16:13 19:00 19:35 Temp 98.2 97.9 98.2 97.9 Pulse 66 66 62 Resp 20 18 B/P 112/52 112/52 129/67 Pulse Ox 96 97 98 O2 Delivery Room Air Room Air 03/06/17 03/06/17 03/07/17 03/07/17 19:51 23:00 03:00 07:00 Temp 98.6 97.9 98.0 98.6 97.9 98.0 Pulse 66 63 76 Resp 16 16 14 B/P 130/66 139/68 138/72 Pulse Ox 98 98 99 O2 Delivery Room Air Room Air 03/07/17 03/07/17 03/07/17 03/07/17 07:13 08:26 08:27 08:28 Pulse 63 63 63 B/P 139/68 139/68 139/68 Pulse Ox 98 O2 Delivery Room Air Intake and Output 03/06/17 03/06/17 03/07/17 15:00 23:00 07:00 Intake Total 480 ml 120 ml Balance 480 ml 120 ml DAVEY DAVID MD Mar 07, 2017 09:56
--- NOTE | 2017-03-07 09:58 | PDOC ---
PROGRESS NOTES Subjective Subjective feeling wanting to go home tomorrow Objective Objective Vital Signs Date Time Temp Pulse Resp B/P Pulse Ox O2 Delivery O2 Flow Rate FiO2 03/07/17 08:28 63 139/68 03/07/17 07:13 98 Room Air 03/07/17 07:00 98.0 14 98.0 Intake and Output 03/07/17 07:00 Intake Total 600 ml Balance 600 ml Intake Oral 600 ml # Voids 7 # Bowel Movements 3 Physical Exam Abdomen: Normal bowel sounds, Soft Heart: Regular rate, Normal S1, Normal S2 General: No acute distress Lungs: Normal air movement MUSCULOSKELETAL: Osteoarthritic changes both hands Neck: Supple Neuro: Normal speech Psych/Mental Status: Mood NL Skin: No significant lesion COMMENT contractures rt side Diagnosis Problem List Problems Medical Problems: (1) COPD exacerbation Status: Acute Assessment Assessment Problems Medical Problems: (1) COPD exacerbation Status: Acute FINAL IMPRESSION: 1. Chronic obstructive pulmonary disease with acute exacerbation. 2. Chronic history of smoking in the past, quit a couple of years ago. 3. Acute on chronic renal failure, usually around 1.7, now it is 2.7. 4. Chronic atrial fibrillation, on Multaq and anticoagulation with Coumadin. 5. Hypertension. 6. Hyperlipidemia. 7. Anemia of chronic disease. 8. History of cerebrovascular accident with Rt hemiparesis. PLAN: iron infusion today. d/c home tomorrow with home health? Hb 7.8 today , hematology consult appreciated pt on coumadin inr stable, no gi bleed. iv steroids change to po tomorrw cr 1.9 trending down with fluids. sono kidneys. Problems: Plan Plan of Care Problems Medical Problems: (1) COPD exacerbation Status: Acute Comment Review of Relevant I have reviewed the following items miriam (where applicable) has been applied. Labs Laboratory Tests Test 03/07/17 03:43 White Blood Count 6.1x10^3/uL (4.0-11.0) Red Blood Count 2.67x10^6/uL (3.50-5.40) Hemoglobin 7.9g/dL (12.0-15.5) Hematocrit 23.8% (36.0-47.0) Mean Corpuscular Volume 89fL (79-100) Mean Corpuscular Hemoglobin 30pg (25-35) Mean Corpuscular Hemoglobin Concent 33g/dL (31-37) Red Cell Distribution Width 16.5% (11.5-14.5) Platelet Count 143x10^3/uL (140-400) Neutrophils (%) (Auto) 95% (31-73) Lymphocytes (%) (Auto) 3% (24-48) Monocytes (%) (Auto) 2% (0-9) Eosinophils (%) (Auto) 0% (0-3) Basophils (%) (Auto) 0% (0-3) Neutrophils # (Auto) 5.7x10^3uL (1.8-7.7) Lymphocytes # (Auto) 0.2x10^3/uL (1.0-4.8) Monocytes # (Auto) 0.1x10^3/uL (0.0-1.1) Eosinophils # (Auto) 0.0x10^3/uL (0.0-0.7) Basophils # (Auto) 0.0x10^3/uL (0.0-0.2) Sodium Level 148mmol/L (136-145) Potassium Level 3.8mmol/L (3.5-5.1) Chloride Level 112mmol/L (98-107) Carbon Dioxide Level 27mmol/L (21-32) Anion Gap 9 (6-14) Blood Urea Nitrogen 47mg/dL (7-20) Creatinine 1.9mg/dL (0.6-1.0) Estimated GFR (Cockcroft-Gault) 30.3 Glucose Level 137mg/dL (70-99) Calcium Level 8.0mg/dL (8.5-10.1) Medications Current Medications Darbepoetin James (Aranesp) 60 mcg 1X ONCE SQ ; Start 03/07/17 at 11:00; Stop at 11:01 Fentanyl (Duragesic 50mcg/ Hr Patch) 1 patch Q3DAYS TD Last administered on 08:25; Start 03/07/17 at 09:00 Iron Sucrose/ Sodium Chloride (Venofer/Iv Sodium Chloride 0.9% 250ml) 275 ml @ 78.571 mls/ hr 1X ONCE IV Last administered on 03/06/17 12:34; Start at 11:00; Stop 03/06/17 at 14:29; Status DC Methylprednisolone Sodium Succinate 40 mg 40 mg Q8HRS IV Last administered on t 05:57; Start 03/06/17 at 14:00 Vitals/I & O Vital Sign - Last 24 Hours 03/06/17 03/06/17 03/06/17 03/06/17 11:00 11:10 12:35 15:00 Temp 98.3 98.3 Pulse 75 75 Resp 18 B/P 140/71 140/71 Pulse Ox 97 97 O2 Delivery Room Air Room Air Room Air 03/06/17 03/06/17 03/06/17 03/06/17 15:00 16:13 19:00 19:35 Temp 98.2 97.9 98.2 97.9 Pulse 66 66 62 Resp 20 18 B/P 112/52 112/52 129/67 Pulse Ox 96 97 98 O2 Delivery Room Air Room Air 03/06/17 03/06/17 03/07/17 03/07/17 19:51 23:00 03:00 07:00 Temp 98.6 97.9 98.0 98.6 97.9 98.0 Pulse 66 63 76 Resp 16 16 14 B/P 130/66 139/68 138/72 Pulse Ox 98 98 99 O2 Delivery Room Air Room Air 03/07/17 03/07/17 03/07/17 03/07/17 07:13 08:26 08:27 08:28 Pulse 63 63 63 B/P 139/68 139/68 139/68 Pulse Ox 98 O2 Delivery Room Air Intake and Output 03/06/17 03/06/17 03/07/17 15:00 23:00 07:00 Intake Total 480 ml 120 ml Balance 480 ml 120 ml ELYSSA CHU MD Mar 07, 2017 09:58
[2017-03-07] MEDS ORDERED: ONABOTULINUMTOXINA 100 UNIT VIAL. ID ONE (10:45)
[2017-03-07 11:00] VITALS: BP 140/76
[2017-03-07] MEDS ORDERED: DARBEPOETIN ALFA 60 MCG/0.3 ML DISP.SYRIN. SQ ONE (11:00)
[2017-03-07] MEDS: DRONEDARONE HCL 400 MG TABLET PO SCH ×2 (12:11→17:24)
[2017-03-07] MEDS: MINERAL OIL/PETROLATUM TOPICAL CREAM 113GM JAR. TP SCH ×2 (12:12→21:35)
[2017-03-07 13:15] LABS: PROTHROMBIN TIME PATIENT 29.2 SEC (11.7-14.0)
--- NOTE | 2017-03-07 14:14 | RAD ---
Renal ultrasound, 03/07/2017: History: Renal failure The right kidney measures 9.1 cm in length while the left kidney measures 8.5 cm. At least 3 left renal cysts are identified. The largest of these measures 3 cm. No right renal mass is evident. The right renal collecting system is mildly prominent. This was also evident on a previous CT study from 02/04/2015. There is no hydronephrosis on the left. The renal parenchymal echogenicity is slightly increased. Limited views of urinary bladder show no abnormality. IMPRESSION: 1. Left renal cysts. 2. Mild chronic prominence of the right renal collecting system. 3. Mildly increased renal parenchymal echogenicity compatible with nonspecific medical renal disease.
--- NOTE | 2017-03-07 14:19 | RAD ---
Right lower extremity arterial ultrasound, 03/07/2017: History: Peripheral vascular disease, skin changes Duplex evaluation of the major arteries in the right lower extremity was performed including grayscale, color-flow and spectral Doppler analysis. There are moderate scattered atherosclerotic plaques. The right common femoral Doppler waveform is monophasic. The right superficial femoral and deep femoral Doppler waveforms are biphasic. No significant focal velocity acceleration is seen in those vessels to suggest high-grade focal stenosis. The Doppler waveforms at and distal to the popliteal artery level are monophasic and somewhat dampened. Patent posterior tibial, anterior tibial and peroneal arteries are evident in the right lower leg demonstrating monophasic Doppler waveforms. The right dorsalis pedis artery is patent demonstrating a similar monophasic waveform. IMPRESSION: 1. Moderate scattered atherosclerotic plaquing. 2. No high-grade focal femoral-popliteal arterial stenosis is identified. 3. Moderate degradation of the Doppler waveforms at and distal to the right popliteal artery level. 4. Three-vessel runoff in the right lower leg.
[2017-03-07 15:00] VITALS: BP 132/70
[2017-03-07] MEDS: WARFARIN 3 MG TABLET. PO SCH (17:24)
[2017-03-07 19:00] VITALS: BP 124/67
--- NOTE | 2017-03-07 20:26 | PDOC ---
PULMONARY PROGRESS NOTES Subjective pt feels better Vitals Vital Signs Date Time Temp Pulse Resp B/P Pulse Ox O2 Delivery O2 Flow Rate FiO2 03/07/17 20:23 96 Room Air 03/07/17 17:24 76 132/70 03/07/17 15:00 99.1 16 99.1 General: Alert, No acute distress Lungs: Wheezing Cardiovascular: S1 Abdomen: Soft Neuro Exam: Alert Extremities: No Edema Skin: Warm Labs Laboratory Tests Test 03/06/17 04:10 03/07/17 03:43 03/07/17 12:40 White Blood Count 5.0x10^3/uL (4.0-11.0) 6.1x10^3/uL (4.0-11.0) Red Blood Count 2.62x10^6/uL (3.50-5.40) 2.67x10^6/uL (3.50-5.40) Hemoglobin 7.7g/dL (12.0-15.5) 7.9g/dL (12.0-15.5) Hematocrit 23.3% (36.0-47.0) 23.8% (36.0-47.0) Mean Corpuscular Volume 89fL (79-100) 89fL (79-100) Mean Corpuscular Hemoglobin 30pg (25-35) 30pg (25-35) Mean Corpuscular Hemoglobin Concent 33g/dL (31-37) 33g/dL (31-37) Red Cell Distribution Width 16.4% (11.5-14.5) 16.5% (11.5-14.5) Platelet Count 141x10^3/uL (140-400) 143x10^3/uL (140-400) Neutrophils (%) (Auto) 92% (31-73) 95% (31-73) Lymphocytes (%) (Auto) 5% (24-48) 3% (24-48) Monocytes (%) (Auto) 2% (0-9) 2% (0-9) Eosinophils (%) (Auto) 0% (0-3) 0% (0-3) Basophils (%) (Auto) 0% (0-3) 0% (0-3) Neutrophils # (Auto) 4.6x10^3uL (1.8-7.7) 5.7x10^3uL (1.8-7.7) Lymphocytes # (Auto) 0.3x10^3/uL (1.0-4.8) 0.2x10^3/uL (1.0-4.8) Monocytes # (Auto) 0.1x10^3/uL (0.0-1.1) 0.1x10^3/uL (0.0-1.1) Eosinophils # (Auto) 0.0x10^3/uL (0.0-0.7) 0.0x10^3/uL (0.0-0.7) Basophils # (Auto) 0.0x10^3/uL (0.0-0.2) 0.0x10^3/uL (0.0-0.2) Prothrombin Time 26.2SEC (11.7-14.0) 29.2SEC (11.7-14.0) Prothromb Time International Ratio 2.6 (0.8-1.1) 3.0 (0.8-1.1) Sodium Level 145mmol/L (136-145) 148mmol/L (136-145) Potassium Level 4.3mmol/L (3.5-5.1) 3.8mmol/L (3.5-5.1) Chloride Level 110mmol/L (98-107) 112mmol/L (98-107) Carbon Dioxide Level 26mmol/L (21-32) 27mmol/L (21-32) Anion Gap 9 (6-14) 9 (6-14) Blood Urea Nitrogen 44mg/dL (7-20) 47mg/dL (7-20) Creatinine 2.2mg/dL (0.6-1.0) 1.9mg/dL (0.6-1.0) Estimated GFR (Cockcroft-Gault) 25.5 30.3 BUN/Creatinine Ratio 20 (6-20) Glucose Level 153mg/dL (70-99) 137mg/dL (70-99) Calcium Level 8.0mg/dL (8.5-10.1) 8.0mg/dL (8.5-10.1) Iron Level 28ug/dL (50-170) Total Iron Binding Capacity 169ug/dL (250-450) Iron Saturation 17% (15-34) Ferritin 226ng/mL (8-252) Total Bilirubin 0.2mg/dL (0.2-1.0) Aspartate Amino Transf (AST/SGOT) 29U/L (15-37) Alanine Aminotransferase (ALT/SGPT) 17U/L (14-59) Alkaline Phosphatase 47U/L (46-116) Total Protein 6.5g/dL (6.4-8.2) Albumin 3.0g/dL (3.4-5.0) Albumin/Globulin Ratio 0.9 (1.0-1.7) Reticulocyte Count (auto) 1.5% (0.5-2.5) Vitamin B12 Level 541pg/mL (247-911) Laboratory Tests Test 03/07/17 03:43 03/07/17 12:40 White Blood Count 6.1x10^3/uL (4.0-11.0) Red Blood Count 2.67x10^6/uL (3.50-5.40) Hemoglobin 7.9g/dL (12.0-15.5) Hematocrit 23.8% (36.0-47.0) Mean Corpuscular Volume 89fL (79-100) Mean Corpuscular Hemoglobin 30pg (25-35) Mean Corpuscular Hemoglobin Concent 33g/dL (31-37) Red Cell Distribution Width 16.5% (11.5-14.5) Platelet Count 143x10^3/uL (140-400) Neutrophils (%) (Auto) 95% (31-73) Lymphocytes (%) (Auto) 3% (24-48) Monocytes (%) (Auto) 2% (0-9) Eosinophils (%) (Auto) 0% (0-3) Basophils (%) (Auto) 0% (0-3) Neutrophils # (Auto) 5.7x10^3uL (1.8-7.7) Lymphocytes # (Auto) 0.2x10^3/uL (1.0-4.8) Monocytes # (Auto) 0.1x10^3/uL (0.0-1.1) Eosinophils # (Auto) 0.0x10^3/uL (0.0-0.7) Basophils # (Auto) 0.0x10^3/uL (0.0-0.2) Reticulocyte Count (auto) 1.5% (0.5-2.5) Sodium Level 148mmol/L (136-145) Potassium Level 3.8mmol/L (3.5-5.1) Chloride Level 112mmol/L (98-107) Carbon Dioxide Level 27mmol/L (21-32) Anion Gap 9 (6-14) Blood Urea Nitrogen 47mg/dL (7-20) Creatinine 1.9mg/dL (0.6-1.0) Estimated GFR (Cockcroft-Gault) 30.3 Glucose Level 137mg/dL (70-99) Calcium Level 8.0mg/dL (8.5-10.1) Prothrombin Time 29.2SEC (11.7-14.0) Prothromb Time International Ratio 3.0 (0.8-1.1) Vitamin B12 Level 541pg/mL (247-911) Medications Active Scripts Medications Dose Route/Sig Days Date Category Dose Instructions Furosemide 20 Mg Tablet 1 Tab PO DAILY 01/16/17 Reported Gave dose this morning Take again tomorrow morning Atorvastatin Calcium 10 Mg Tablet 10 Mg PO HS 01/16/17 Reported Dose given last night Take again tonight Pantoprazole Sodium 40 Mg Tablet.dr 40 Mg PO DAILY 11/19/16 Reported Gave dose this morning Take again tomorrow morning Warfarin Sodium 3 Mg Tablet 3 Mg PO DAILY 11/19/16 Reported Gave dose yesterday evening Take again this evening [Ipratropium/Albuterol Sulfate] 3 ML Nebu 3 Ml NEB RTQID 02/09/15 Rx Feosol (Ferrous Sulfate) 325 Mg Tablet 325 Mg PO DAILYWBKFT 02/09/15 Rx FENTANYL 50mcg/hr (Fentanyl) 1 Each Patch.td72 1 Patch TP Q3DAYS 02/06/15 Reported Changed today Change again on the Vitamin D (Cholecalciferol (Vitamin D3)) 400 Unit Capsule 400 Unit PO DAILY 03/30/14 Reported Gave dose this morning Take again tomorrow morning Tylenol (Acetaminophen) 325 Mg Tablet 325 Mg PO PRN Q6HRS PRN 03/30/14 Reported Not given on this admission Take when needed Potassium Chloride 10 Meq Capsule.er 10 Meq PO BID 5/20/14 Reported Gave dose this morning Take again tonight Multaq (Dronedarone Hcl) 400 Mg Tablet 400 Mg PO BIDACLD 03/30/14 Reported Gave dose before lunch Take again tonight before dinner Amlodipine Besylate 10 Mg Tablet 10 Mg PO DAILY 03/30/14 Reported Gave this morning Take again tomorrow morning Digoxin 125 Mcg Tablet 125 Mcg PO DAILY 03/30/14 Reported Gave dose this morning Take again tomorrow morning Baclofen 10 Mg Tablet 10 Mg PO HS 03/30/14 Reported Dose given last night Take again tonight Lisinopril 20 Mg Tablet 10 Mg PO DAILY 03/30/14 Reported Gave dose this morning Take again tomorrow morning Impression . 1. Acute respiratory distress secondary to acute exacerbation of chronic obstructive pulmonary disease. 2. Acute exacerbation of chronic obstructive pulmonary disease. 3. Tobacco dependent, in remission. 4. Acute on chronic renal insufficiency. 5. Chronic atrial fibrillation. 6. Cardiovascular accident with left-sided hemiparesis. 7. Dysphagia. Plan . pt less wheezing today, home in am ok 1. We will continue current steroids and nebulized treatments. 2. No need for antibiotics. 3. We will add Pulmicort. 4. Suspect some of the patient's symptoms may be related to allergies. 5. Clinically I do not think she is chronically aspirating PEBBLES GRANADO MD Mar 07, 2017 20:26
[2017-03-07] MEDS ORDERED: PRED20TA PO (21:04)
[2017-03-07] MEDS: BACLOFEN 10 MG TABLET. PO SCH (21:35)
[2017-03-07] MEDS: ATORVASTATIN CALCIUM 10 MG TABLET. PO SCH (21:35)
[2017-03-07 23:00] VITALS: BP 154/70
--- NOTE | 2017-03-08 00:18 | CONS ---
DATE OF CONSULTATION: 03/07/2017 ATTENDING PHYSICIAN: Sparkle Kelsey MD. The patient was seen at the request of Dr. Kelsey for rehab evaluation. HISTORY OF PRESENT ILLNESS: This is an 86-year-old female known to me. 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 The patient was admitted on 03/04/2017 with shortness of breath, COPD exacerbation and [id number] renal failure. The patient is feeling better. She plans to go home tomorrow. She would like to have Botox injection to her right forearm flexor muscles where she had flexion contractures of her elbow and right wrist and right hand fingers. The patient had last time Botox injection in 11/20/2016 with some help. PAST MEDICAL HISTORY: Also includes; chronic diastolic heart failure, hyperlipidemia, and mild chronic renal insufficiency. PAST SURGICAL HISTORY: The patient is status post right total knee arthroplasty and also cataract surgery. ALLERGIES: SHE IS KNOWN ALLERGIC TO PENICILLIN. SOCIAL HISTORY: She lives with her family had no stairs to manage. She usually walks using a walker with help from her family members. The patient smoked in the past, but not anymore. The patient denies any pain at present time. PHYSICAL EXAMINATION: Today revealed an elderly female; she is alert, oriented to time, place, person and circumstance and follows commands appropriately. She had spastic right hemiparesis with significant weakness of right upper extremity muscles, mainly shoulder abductors, external rotators, elbow extensors and wrist and finger extensors and hand intrinsic muscles. The patient had dry, scaly and darkened skin of her right foot and right leg. She requires some help with bed mobility. I have not tested her transfers or ambulation skills at present time. With physical therapy, she required minimal help with rolling to the left, two person assistance with rolling to the right side, minimal assistance supine to sit, two person assistance sit to supine, minimal assistance with transfers and she walked with a platform roller walker for about 30 feet with minimal assistance. ASSESSMENT: 1. 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 2. Chronic obstructive pulmonary disease with recent exacerbation. 3. Cjkkn-yc-mzplecl renal failure. 4. Chronic atrial fibrillation. 5. Hypertension. 6. Hyperlipidemia. 7. Anemia. RECOMMENDATION: To proceed with Botox injection to right forearm flexor muscles and also right elbow flexor muscles to help ease some of the spastic contractures of the right upper extremity and to help with her care. Dr. Kelsey, I appreciate asking me to participate in the care of this interesting patient. I will be glad to follow her with you as needed for her rehabilitation. DANIELLE GARCIA MD DR: MARICEL/humza JOB#: [id number] / [id number]
[2017-03-08 03:00] VITALS: BP 132/68
[2017-03-08 05:22] LABS: BASO % 0 % (0-3); EOS % 0 % (0-3); HEMATOCRIT 25.4 % (36.0-47.0); HEMOGLOBIN 8.4 g/dL (12.0-15.5); LYMPH # 0.2 x10^3/uL (1.0-4.8); LYMPH % 4 % (24-48); MEAN CORPUSCULAR HEMOGLOBIN 29 pg (25-35); MEAN CORPUSCULAR HGB CONC 33 g/dL (31-37); MEAN CORPUSCULAR VOLUME 89 fL (79-100); MONO % 3 % (0-9); NEUT % 94 % (31-73); PLATELET COUNT 149 x10^3/uL (140-400); RED BLOOD COUNT 2.87 x10^6/uL (3.50-5.40); RED CELL DISTRIBUTION WIDTH 16.3 % (11.5-14.5); WHITE BLOOD COUNT 6.1 x10^3/uL (4.0-11.0)
[2017-03-08 05:46] LABS: CALCIUM 8.3 mg/dL (8.5-10.1); CREATININE 1.6 mg/dL (0.6-1.0); GFR 36.9; POTASSIUM 3.6 mmol/L (3.5-5.1)
[2017-03-08 07:00] VITALS: BP 142/80
[2017-03-08] MEDS: BUDESONIDE 0.5 MG/2 ML NEBU. NEB SCH (07:25)
[2017-03-08] MEDS: IPRATRPIUM/ALBUTEROL 0.5/2.5MG 3 ML NEBU. NEB SCH ×3 (07:25→15:42)
[2017-03-08] MEDS: PANTOPRAZOLE 40 MG TABLET.DR. PO SCH (08:38)
[2017-03-08] MEDS: FERROUS SULFATE 325 MG TABLET. PO SCH (08:38)
[2017-03-08] MEDS: DIGOXIN 125 MCG TABLET. PO SCH (08:38)
[2017-03-08] MEDS: CHOLECALCIFEROL (VITAMIN D3) 1,000 UNIT TABLET PO SCH (08:38)
[2017-03-08] MEDS: LISINOPRIL 10 MG TABLET PO SCH (08:38)
[2017-03-08] MEDS: amLODIPine BESYLATE 10 MG TABLET PO SCH (08:40)
[2017-03-08] MEDS: MINERAL OIL/PETROLATUM TOPICAL CREAM 113GM JAR. TP SCH (08:40)
[2017-03-08] MEDS ORDERED: predniSONE 20 MG TABLET PO SCH (09:00)
--- NOTE | 2017-03-08 09:31 | PDOC ---
PROGRESS NOTES Subjective Subjective No new complaints. Objective Objective Vital Signs Date Time Temp Pulse Resp B/P Pulse Ox O2 Delivery O2 Flow Rate FiO2 03/08/17 08:40 62 132/68 03/08/17 07:27 94 Room Air 03/08/17 07:00 97.8 16 97.8 Intake and Output 03/08/17 07:00 Intake Total 1200 ml Output Total 500 ml Balance 700 ml Intake Oral 1200 ml Output Urine Total 500 ml # Voids 8 # Bowel Movements 1 Physical Exam Physical Exam She is comfortable supine in bed and eating breakfast. Assessment Assessment Problems Medical Problems: (1) COPD exacerbation Status: Acute Plan Plan of Care I thoght of injecting her right upper extremity flexor muscles with botox but there is problem with pharmacy getting reimbersed for it,so I will try to perform it on out patient basis in my office after her discharge. Comment Review of Relevant I have reviewed the following items miriam (where applicable) has been applied. Labs Laboratory Tests Test 03/07/17 03:43 03/07/17 12:40 03/08/17 04:45 White Blood Count 6.1x10^3/uL (4.0-11.0) 6.1x10^3/uL (4.0-11.0) Red Blood Count 2.67x10^6/uL (3.50-5.40) 2.87x10^6/uL (3.50-5.40) Hemoglobin 7.9g/dL (12.0-15.5) 8.4g/dL (12.0-15.5) Hematocrit 23.8% (36.0-47.0) 25.4% (36.0-47.0) Mean Corpuscular Volume 89fL (79-100) 89fL (79-100) Mean Corpuscular Hemoglobin 30pg (25-35) 29pg (25-35) Mean Corpuscular Hemoglobin Concent 33g/dL (31-37) 33g/dL (31-37) Red Cell Distribution Width 16.5% (11.5-14.5) 16.3% (11.5-14.5) Platelet Count 143x10^3/uL (140-400) 149x10^3/uL (140-400) Neutrophils (%) (Auto) 95% (31-73) 94% (31-73) Lymphocytes (%) (Auto) 3% (24-48) 4% (24-48) Monocytes (%) (Auto) 2% (0-9) 3% (0-9) Eosinophils (%) (Auto) 0% (0-3) 0% (0-3) Basophils (%) (Auto) 0% (0-3) 0% (0-3) Neutrophils # (Auto) 5.7x10^3uL (1.8-7.7) 5.7x10^3uL (1.8-7.7) Lymphocytes # (Auto) 0.2x10^3/uL (1.0-4.8) 0.2x10^3/uL (1.0-4.8) Monocytes # (Auto) 0.1x10^3/uL (0.0-1.1) 0.2x10^3/uL (0.0-1.1) Eosinophils # (Auto) 0.0x10^3/uL (0.0-0.7) 0.0x10^3/uL (0.0-0.7) Basophils # (Auto) 0.0x10^3/uL (0.0-0.2) 0.0x10^3/uL (0.0-0.2) Reticulocyte Count (auto) 1.5% (0.5-2.5) Sodium Level 148mmol/L (136-145) 147mmol/L (136-145) Potassium Level 3.8mmol/L (3.5-5.1) 3.6mmol/L (3.5-5.1) Chloride Level 112mmol/L (98-107) 111mmol/L (98-107) Carbon Dioxide Level 27mmol/L (21-32) 28mmol/L (21-32) Anion Gap 9 (6-14) 8 (6-14) Blood Urea Nitrogen 47mg/dL (7-20) 40mg/dL (7-20) Creatinine 1.9mg/dL (0.6-1.0) 1.6mg/dL (0.6-1.0) Estimated GFR (Cockcroft-Gault) 30.3 36.9 Glucose Level 137mg/dL (70-99) 130mg/dL (70-99) Calcium Level 8.0mg/dL (8.5-10.1) 8.3mg/dL (8.5-10.1) Prothrombin Time 29.2SEC (11.7-14.0) Prothromb Time International Ratio 3.0 (0.8-1.1) Vitamin B12 Level 541pg/mL (247-911) Serum Folate 10.81ng/ml (3.2-20.0) Laboratory Tests Test 03/07/17 12:40 03/08/17 04:45 Prothrombin Time 29.2SEC (11.7-14.0) Prothromb Time International Ratio 3.0 (0.8-1.1) Vitamin B12 Level 541pg/mL (247-911) White Blood Count 6.1x10^3/uL (4.0-11.0) Red Blood Count 2.87x10^6/uL (3.50-5.40) Hemoglobin 8.4g/dL (12.0-15.5) Hematocrit 25.4% (36.0-47.0) Mean Corpuscular Volume 89fL (79-100) Mean Corpuscular Hemoglobin 29pg (25-35) Mean Corpuscular Hemoglobin Concent 33g/dL (31-37) Red Cell Distribution Width 16.3% (11.5-14.5) Platelet Count 149x10^3/uL (140-400) Neutrophils (%) (Auto) 94% (31-73) Lymphocytes (%) (Auto) 4% (24-48) Monocytes (%) (Auto) 3% (0-9) Eosinophils (%) (Auto) 0% (0-3) Basophils (%) (Auto) 0% (0-3) Neutrophils # (Auto) 5.7x10^3uL (1.8-7.7) Lymphocytes # (Auto) 0.2x10^3/uL (1.0-4.8) Monocytes # (Auto) 0.2x10^3/uL (0.0-1.1) Eosinophils # (Auto) 0.0x10^3/uL (0.0-0.7) Basophils # (Auto) 0.0x10^3/uL (0.0-0.2) Sodium Level 147mmol/L (136-145) Potassium Level 3.6mmol/L (3.5-5.1) Chloride Level 111mmol/L (98-107) Carbon Dioxide Level 28mmol/L (21-32) Anion Gap 8 (6-14) Blood Urea Nitrogen 40mg/dL (7-20) Creatinine 1.6mg/dL (0.6-1.0) Estimated GFR (Cockcroft-Gault) 36.9 Glucose Level 130mg/dL (70-99) Calcium Level 8.3mg/dL (8.5-10.1) Serum Folate 10.81ng/ml (3.2-20.0) Medications Current Medications Albuterol/ Ipratropium (Duoneb) 3 ml 1X ONCE NEB Last administered on 18:22; Start 03/04/17 at 18:15; Stop 03/04/17 at 18:16; Status DC Methylprednisolone Sodium Succinate (Solu-Medrol 125mg Vial) 125 mg 1X ONCE IV Last administered on 03/04/17 18:14; Start 03/04/17 at 18:15; Stop 03/04/17 at 18:16; Status DC Ondansetron HCl (Zofran) 4 mg PRN Q8HRS PRN IV NAUSEA/VOMITING; Start 03/04/17 at 18:15; Stop 03/05/17 at 18:14; Status DC Albuterol/ Ipratropium (Duoneb) 3 ml RTQID NEB Last administered on 03/04/17 20:46; Start 03/04/17 at 20:00; Stop 03/04/17 at 23:15; Status DC Acetaminophen (Tylenol) 325 mg PRN Q6HRS PRN PO PAIN; Start 03/04/17 at 22:45 Amlodipine Besylate (Norvasc) 10 mg DAILY PO Last administered on 03/08/17 08: 40; Start 03/05/17 at 09:00 Atorvastatin Calcium (Lipitor) 10 mg HS PO Last administered on 03/07/17 21:35 ; Start 03/05/17 at 21:00 Baclofen (Lioresal) 10 mg HS PO Last administered on 03/07/17 21:35; Start at 21:00 Digoxin (Lanoxin) 125 mcg DAILY PO Last administered on 03/08/17 08:38; Start 03/05/17 at 09:00 Dronedarone (Multaq) 400 mg BIDACLD PO Last administered on 03/07/17 17:24; Start 03/05/17 at 11:30 Fentanyl (Duragesic 50mcg/ Hr Patch) 1 patch Q3DAYS TD Last administered on 08:25; Start 03/07/17 at 09:00 Ferrous Sulfate (Feosol) 325 mg DAILYWBKFT PO Last administered on 03/08/17 08 :38; Start 03/05/17 at 08:00 Furosemide (Lasix) 20 mg DAILY PO Last administered on 03/06/17 08:29; Start 03/05/17 at 09:00; Stop 03/06/17 at 10:07; Status DC Lisinopril (Prinivil) 10 mg DAILY PO Last administered on 03/08/17 08:38; Start 03/05/17 at 09:00 Pantoprazole Sodium (Protonix) 40 mg DAILYAC PO Last administered on 03/08/17 08:38; Start 03/05/17 at 07:30 Warfarin Sodium (Coumadin) 3 mg DAILY16 PO Last administered on 03/07/17 17:24 ; Start 03/05/17 at 16:00 Vitamin D (Vitamin D3) 500 unit DAILY PO Last administered on 03/08/17 08:38; Start 03/05/17 at 09:00 Potassium Chloride (Klor-Con) 10 meq BIDWMEALS PO Last administered on 08:30; Start 03/05/17 at 08:00; Stop 03/06/17 at 10:07; Status DC Non-Formulary Medication 3 ml RTQID NEB ; Start 03/05/17 at 08:00; Status UNV Methylprednisolone Sodium Succinate (Solu-Medrol 125mg Vial) 80 mg Q8HRS IV Last administered on 03/06/17 05:28; Start 03/04/17 at 23:15; Stop 03/06/17 at 10:07; Status DC Albuterol/ Ipratropium (Duoneb) 3 ml RTQID NEB Last administered on 03/08/17 07:25; Start 03/05/17 at 08:00 Albuterol Sulfate 2.5 mg 2.5 mg PRN QID PRN NEB SHORTNESS OF BREATH; Start at 22:45 Sodium Chloride (Iv Sodium Chloride 0.9% 1000ml Bag) 1,000 ml @ 100 mls/hr Q10H IV Last administered on 03/07/17 17:25; Start 03/04/17 at 23:00; Stop at 23:00; Status DC Warfarin Sodium (Coumadin Per Physician) 1 each PRN DAILY PRN MC SEE COMMENTS Last administered on 03/07/17 15:46; Start 03/05/17 at 16:00 Budesonide (Pulmicort) 0.5 mg RTBID NEB Last administered on 03/08/17 07:25; Start 03/05/17 at 20:00 Methylprednisolone Sodium Succinate 40 mg 40 mg Q8HRS IV Last administered on 21:34; Start 03/06/17 at 14:00; Stop 03/07/17 at 23:00; Status DC Iron Sucrose/ Sodium Chloride (Venofer/Iv Sodium Chloride 0.9% 250ml) 275 ml @ 78.571 mls/ hr 1X ONCE IV Last administered on 03/06/17 12:34; Start at 11:00; Stop 03/06/17 at 14:29; Status DC Darbepoetin James (Aranesp) 60 mcg 1X ONCE SQ Last administered on 03/07/17 12 :12; Start 03/07/17 at 11:00; Stop 03/07/17 at 11:01; Status DC Prednisone (Prednisone) 40 mg DAILY PO Last administered on 03/08/17 08:38; Start 03/08/17 at 09:00 Botulinum Toxin Type A (Botox) 100 unit 1X ONCE ID ; Start 03/07/17 at 10:45; Stop 03/07/17 at 10:48; Status DC Multi-Ingred Cream/Lotion/Oil/ Oint (Hydrocerin) 1 nubia BID TP Last administered on 03/08/17 08:40; Start 03/07/17 at 11:30 Active Scripts Active [Ipratropium/Albuterol Sulfate] 3 ML Nebu 3 Ml NEB RTQID Feosol (Ferrous Sulfate) 325 Mg Tablet 325 Mg PO DAILYWBKFT Reported Furosemide 20 Mg Tablet 1 Tab PO DAILY Gave dose this morning Take again tomorrow morning Atorvastatin Calcium 10 Mg Tablet 10 Mg PO HS Dose given last night Take again tonight Pantoprazole Sodium 40 Mg Tablet.dr 40 Mg PO DAILY Gave dose this morning Take again tomorrow morning Warfarin Sodium 3 Mg Tablet 3 Mg PO DAILY Gave dose yesterday evening Take again this evening FENTANYL 50mcg/hr (Fentanyl) 1 Each Patch.td72 1 Patch TP Q3DAYS Changed today Change again on the Vitamin D (Cholecalciferol (Vitamin D3)) 400 Unit Capsule 400 Unit PO DAILY Gave dose this morning Take again tomorrow morning Tylenol (Acetaminophen) 325 Mg Tablet 325 Mg PO PRN Q6HRS PRN Not given on this admission Take when needed Potassium Chloride 10 Meq Capsule.er 10 Meq PO BID Gave dose this morning Take again tonight Multaq (Dronedarone Hcl) 400 Mg Tablet 400 Mg PO BIDACLD Gave dose before lunch Take again tonight before dinner Amlodipine Besylate 10 Mg Tablet 10 Mg PO DAILY Gave this morning Take again tomorrow morning Digoxin 125 Mcg Tablet 125 Mcg PO DAILY Gave dose this morning Take again tomorrow morning Baclofen 10 Mg Tablet 10 Mg PO HS Dose given last night Take again tonight Lisinopril 20 Mg Tablet 10 Mg PO DAILY Gave dose this morning Take again tomorrow morning Vitals/I & O Vital Sign - Last 24 Hours 03/07/17 03/07/17 03/07/17 03/07/17 11:00 11:01 12:11 15:00 Temp 98.0 98.0 Pulse 70 70 Resp 16 B/P 140/76 140/76 Pulse Ox 98 98 97 O2 Delivery Room Air Room Air Room Air 03/07/17 03/07/17 03/07/17 03/07/17 15:00 17:24 19:00 20:00 Temp 99.1 98.3 99.1 98.3 Pulse 76 76 71 Resp 16 18 B/P 132/70 132/70 124/67 Pulse Ox 95 97 O2 Delivery Room Air Room Air 03/07/17 03/07/17 03/08/17 03/08/17 20:23 23:00 03:00 07:00 Temp 98.2 98.4 97.8 98.2 98.4 97.8 Pulse 69 62 70 Resp 18 16 16 B/P 154/70 132/68 142/80 Pulse Ox 96 98 95 96 O2 Delivery Room Air Room Air 03/08/17 03/08/17 03/08/17 03/08/17 07:26 07:27 08:38 08:38 Pulse 62 62 B/P 132/68 132/68 Pulse Ox 94 94 O2 Delivery Room Air Room Air 03/08/17 08:40 Pulse 62 B/P 132/68 Intake and Output 03/07/17 03/07/17 03/08/17 15:00 23:00 07:00 Intake Total 480 ml 360 ml 360 ml Output Total 500 ml Balance 480 ml -140 ml 360 ml DANIELLE GARCIA MD Mar 08, 2017 09:31
--- NOTE | 2017-03-08 10:34 | PDOC ---
PROGRESS NOTES Subjective Subjective feels ok ,want to go home Objective Objective Vital Signs Date Time Temp Pulse Resp B/P Pulse Ox O2 Delivery O2 Flow Rate FiO2 03/08/17 08:40 62 132/68 03/08/17 07:27 94 Room Air 03/08/17 07:00 97.8 16 97.8 Intake and Output 03/08/17 07:00 Intake Total 1200 ml Output Total 500 ml Balance 700 ml Intake Oral 1200 ml Output Urine Total 500 ml # Voids 8 # Bowel Movements 1 Physical Exam Abdomen: Normal bowel sounds, Soft Heart: Normal S1, Normal S2 General: Alert, Oriented X3 Lungs: Clear to auscultation MUSCULOSKELETAL: Osteoarthritic changes both hands Neck: Supple Neuro: Normal speech Psych/Mental Status: Mood NL Skin: No significant lesion COMMENT contractures rt side Diagnosis Problem List Problems Medical Problems: (1) COPD exacerbation Status: Acute Assessment Assessment Problems Medical Problems: (1) COPD exacerbation Status: Acute FINAL IMPRESSION: 1. Chronic obstructive pulmonary disease with acute exacerbation. 2. Chronic history of smoking in the past, quit a couple of years ago. 3. Acute on chronic renal failure, usually around 1.7, now it is 2.7. 4. Chronic atrial fibrillation, on Multaq and anticoagulation with Coumadin. 5. Hypertension. 6. Hyperlipidemia. 7. Anemia of chronic disease. 8. History of cerebrovascular accident with Rt hemiparesis. PLAN: spoke with hematology. iron infusion yesterday d/c home today with home health. Hb 8.4 today , hematology consult appreciated pt on coumadin inr stable, no gi bleed. iv steroids change to po [id number] cr 1.6 trending down with fluids. sono kidneys neg. Problems: Plan Plan of Care Problems Medical Problems: (1) COPD exacerbation Status: Acute Comment Review of Relevant I have reviewed the following items imriam (where applicable) has been applied. Labs Laboratory Tests Test 03/07/17 12:40 03/08/17 04:45 Prothrombin Time 29.2SEC (11.7-14.0) Prothromb Time International Ratio 3.0 (0.8-1.1) Vitamin B12 Level 541pg/mL (247-911) White Blood Count 6.1x10^3/uL (4.0-11.0) Red Blood Count 2.87x10^6/uL (3.50-5.40) Hemoglobin 8.4g/dL (12.0-15.5) Hematocrit 25.4% (36.0-47.0) Mean Corpuscular Volume 89fL (79-100) Mean Corpuscular Hemoglobin 29pg (25-35) Mean Corpuscular Hemoglobin Concent 33g/dL (31-37) Red Cell Distribution Width 16.3% (11.5-14.5) Platelet Count 149x10^3/uL (140-400) Neutrophils (%) (Auto) 94% (31-73) Lymphocytes (%) (Auto) 4% (24-48) Monocytes (%) (Auto) 3% (0-9) Eosinophils (%) (Auto) 0% (0-3) Basophils (%) (Auto) 0% (0-3) Neutrophils # (Auto) 5.7x10^3uL (1.8-7.7) Lymphocytes # (Auto) 0.2x10^3/uL (1.0-4.8) Monocytes # (Auto) 0.2x10^3/uL (0.0-1.1) Eosinophils # (Auto) 0.0x10^3/uL (0.0-0.7) Basophils # (Auto) 0.0x10^3/uL (0.0-0.2) Sodium Level 147mmol/L (136-145) Potassium Level 3.6mmol/L (3.5-5.1) Chloride Level 111mmol/L (98-107) Carbon Dioxide Level 28mmol/L (21-32) Anion Gap 8 (6-14) Blood Urea Nitrogen 40mg/dL (7-20) Creatinine 1.6mg/dL (0.6-1.0) Estimated GFR (Cockcroft-Gault) 36.9 Glucose Level 130mg/dL (70-99) Calcium Level 8.3mg/dL (8.5-10.1) Serum Folate 10.81ng/ml (3.2-20.0) Medications Current Medications Botulinum Toxin Type A (Botox) 100 unit 1X ONCE ID ; Start 03/07/17 at 10:45; Stop 03/07/17 at 10:48; Status DC Darbepoetin James (Aranesp) 60 mcg 1X ONCE SQ Last administered on 03/07/17 12 :12; Start 03/07/17 at 11:00; Stop 03/07/17 at 11:01; Status DC Multi-Ingred Cream/Lotion/Oil/ Oint (Hydrocerin) 1 nubia BID TP Last administered on 03/08/17 08:40; Start 03/07/17 at 11:30 Prednisone (Prednisone) 40 mg DAILY PO Last administered on 03/08/17 08:38; Start 03/08/17 at 09:00 Vitals/I & O Vital Sign - Last 24 Hours 03/07/17 03/07/17 03/07/17 03/07/17 11:00 11:01 12:11 15:00 Temp 98.0 98.0 Pulse 70 70 Resp 16 B/P 140/76 140/76 Pulse Ox 98 98 97 O2 Delivery Room Air Room Air Room Air 03/07/17 03/07/17 03/07/17 03/07/17 15:00 17:24 19:00 20:00 Temp 99.1 98.3 99.1 98.3 Pulse 76 76 71 Resp 16 18 B/P 132/70 132/70 124/67 Pulse Ox 95 97 O2 Delivery Room Air Room Air 03/07/17 03/07/17 03/08/17 03/08/17 20:23 23:00 03:00 07:00 Temp 98.2 98.4 97.8 98.2 98.4 97.8 Pulse 69 62 70 Resp 18 16 16 B/P 154/70 132/68 142/80 Pulse Ox 96 98 95 96 O2 Delivery Room Air Room Air 03/08/17 03/08/17 03/08/17 03/08/17 07:26 07:27 08:38 08:38 Pulse 62 62 B/P 132/68 132/68 Pulse Ox 94 94 O2 Delivery Room Air Room Air 03/08/17 08:40 Pulse 62 B/P 132/68 Intake and Output 03/07/17 03/07/17 03/08/17 15:00 23:00 07:00 Intake Total 480 ml 360 ml 360 ml Output Total 500 ml Balance 480 ml -140 ml 360 ml ELYSSA CHU MD Mar 08, 2017 10:34
[2017-03-08 11:22] VITALS: BP 136/78
[2017-03-08 11:42] LABS: INR 3.3 (0.8-1.1); PROTHROMBIN TIME PATIENT 31.6 SEC (11.7-14.0)
--- NOTE | 2017-03-08 12:33 | PDOC ---
PROGRESS NOTES Subjective Subjective c/c - f/u of Anemia due to CKD ROS - no CP Objective Objective Vital Signs Date Time Temp Pulse Resp B/P Pulse Ox O2 Delivery O2 Flow Rate FiO2 03/08/17 11:25 95 Room Air 03/08/17 11:22 98.3 71 20 136/78 98.3 Intake and Output 03/08/17 07:00 Intake Total 1200 ml Output Total 500 ml Balance 700 ml Intake Oral 1200 ml Output Urine Total 500 ml # Voids 8 # Bowel Movements 1 Physical Exam Heart: Normal S1, Normal S2 General: Alert Lungs: Clear to auscultation Assessment Assessment Problems Medical Problems: (1) COPD exacerbation Status: Acute 1. Anemia due to CKD - Hb now 8.4. Started Aranesp 03/07/17 and then monthly if patient can come to office. If not, she can f/u with Dr Jung and monitor cbc and transfuse as needed. I d/w DR Kelsey. 2. CKD 3. Acute respiratory distress secondary to acute exacerbation of chronic obstructive pulmonary disease. Comment Review of Relevant I have reviewed the following items miriam (where applicable) has been applied. Labs Laboratory Tests Test 03/07/17 03:43 03/07/17 12:40 03/08/17 04:45 03/08/17 11:20 White Blood Count 6.1x10^3/uL (4.0-11.0) 6.1x10^3/uL (4.0-11.0) Red Blood Count 2.67x10^6/uL (3.50-5.40) 2.87x10^6/uL (3.50-5.40) Hemoglobin 7.9g/dL (12.0-15.5) 8.4g/dL (12.0-15.5) Hematocrit 23.8% (36.0-47.0) 25.4% (36.0-47.0) Mean Corpuscular Volume 89fL (79-100) 89fL (79-100) Mean Corpuscular Hemoglobin 30pg (25-35) 29pg (25-35) Mean Corpuscular Hemoglobin Concent 33g/dL (31-37) 33g/dL (31-37) Red Cell Distribution Width 16.5% (11.5-14.5) 16.3% (11.5-14.5) Platelet Count 143x10^3/uL (140-400) 149x10^3/uL (140-400) Neutrophils (%) (Auto) 95% (31-73) 94% (31-73) Lymphocytes (%) (Auto) 3% (24-48) 4% (24-48) Monocytes (%) (Auto) 2% (0-9) 3% (0-9) Eosinophils (%) (Auto) 0% (0-3) 0% (0-3) Basophils (%) (Auto) 0% (0-3) 0% (0-3) Neutrophils # (Auto) 5.7x10^3uL (1.8-7.7) 5.7x10^3uL (1.8-7.7) Lymphocytes # (Auto) 0.2x10^3/uL (1.0-4.8) 0.2x10^3/uL (1.0-4.8) Monocytes # (Auto) 0.1x10^3/uL (0.0-1.1) 0.2x10^3/uL (0.0-1.1) Eosinophils # (Auto) 0.0x10^3/uL (0.0-0.7) 0.0x10^3/uL (0.0-0.7) Basophils # (Auto) 0.0x10^3/uL (0.0-0.2) 0.0x10^3/uL (0.0-0.2) Reticulocyte Count (auto) 1.5% (0.5-2.5) Sodium Level 148mmol/L (136-145) 147mmol/L (136-145) Potassium Level 3.8mmol/L (3.5-5.1) 3.6mmol/L (3.5-5.1) Chloride Level 112mmol/L (98-107) 111mmol/L (98-107) Carbon Dioxide Level 27mmol/L (21-32) 28mmol/L (21-32) Anion Gap 9 (6-14) 8 (6-14) Blood Urea Nitrogen 47mg/dL (7-20) 40mg/dL (7-20) Creatinine 1.9mg/dL (0.6-1.0) 1.6mg/dL (0.6-1.0) Estimated GFR (Cockcroft-Gault) 30.3 36.9 Glucose Level 137mg/dL (70-99) 130mg/dL (70-99) Calcium Level 8.0mg/dL (8.5-10.1) 8.3mg/dL (8.5-10.1) Prothrombin Time 29.2SEC (11.7-14.0) 31.6SEC (11.7-14.0) Prothromb Time International Ratio 3.0 (0.8-1.1) 3.3 (0.8-1.1) Vitamin B12 Level 541pg/mL (247-911) Serum Folate 10.81ng/ml (3.2-20.0) Laboratory Tests Test 03/07/17 12:40 03/08/17 04:45 03/08/17 11:20 Prothrombin Time 29.2SEC (11.7-14.0) 31.6SEC (11.7-14.0) Prothromb Time International Ratio 3.0 (0.8-1.1) 3.3 (0.8-1.1) Vitamin B12 Level 541pg/mL (247-911) White Blood Count 6.1x10^3/uL (4.0-11.0) Red Blood Count 2.87x10^6/uL (3.50-5.40) Hemoglobin 8.4g/dL (12.0-15.5) Hematocrit 25.4% (36.0-47.0) Mean Corpuscular Volume 89fL (79-100) Mean Corpuscular Hemoglobin 29pg (25-35) Mean Corpuscular Hemoglobin Concent 33g/dL (31-37) Red Cell Distribution Width 16.3% (11.5-14.5) Platelet Count 149x10^3/uL (140-400) Neutrophils (%) (Auto) 94% (31-73) Lymphocytes (%) (Auto) 4% (24-48) Monocytes (%) (Auto) 3% (0-9) Eosinophils (%) (Auto) 0% (0-3) Basophils (%) (Auto) 0% (0-3) Neutrophils # (Auto) 5.7x10^3uL (1.8-7.7) Lymphocytes # (Auto) 0.2x10^3/uL (1.0-4.8) Monocytes # (Auto) 0.2x10^3/uL (0.0-1.1) Eosinophils # (Auto) 0.0x10^3/uL (0.0-0.7) Basophils # (Auto) 0.0x10^3/uL (0.0-0.2) Sodium Level 147mmol/L (136-145) Potassium Level 3.6mmol/L (3.5-5.1) Chloride Level 111mmol/L (98-107) Carbon Dioxide Level 28mmol/L (21-32) Anion Gap 8 (6-14) Blood Urea Nitrogen 40mg/dL (7-20) Creatinine 1.6mg/dL (0.6-1.0) Estimated GFR (Cockcroft-Gault) 36.9 Glucose Level 130mg/dL (70-99) Calcium Level 8.3mg/dL (8.5-10.1) Serum Folate 10.81ng/ml (3.2-20.0) Medications Current Medications Albuterol/ Ipratropium (Duoneb) 3 ml 1X ONCE NEB Last administered on 18:22; Start 03/04/17 at 18:15; Stop 03/04/17 at 18:16; Status DC Methylprednisolone Sodium Succinate (Solu-Medrol 125mg Vial) 125 mg 1X ONCE IV Last administered on 03/04/17 18:14; Start 03/04/17 at 18:15; Stop 03/04/17 at 18:16; Status DC Ondansetron HCl (Zofran) 4 mg PRN Q8HRS PRN IV NAUSEA/VOMITING; Start 03/04/17 at 18:15; Stop 03/05/17 at 18:14; Status DC Albuterol/ Ipratropium (Duoneb) 3 ml RTQID NEB Last administered on 03/04/17 20:46; Start 03/04/17 at 20:00; Stop 03/04/17 at 23:15; Status DC Acetaminophen (Tylenol) 325 mg PRN Q6HRS PRN PO PAIN; Start 03/04/17 at 22:45 Amlodipine Besylate (Norvasc) 10 mg DAILY PO Last administered on 03/08/17 08: 40; Start 03/05/17 at 09:00 Atorvastatin Calcium (Lipitor) 10 mg HS PO Last administered on 03/07/17 21:35 ; Start 03/05/17 at 21:00 Baclofen (Lioresal) 10 mg HS PO Last administered on 03/07/17 21:35; Start at 21:00 Digoxin (Lanoxin) 125 mcg DAILY PO Last administered on 03/08/17 08:38; Start 03/05/17 at 09:00 Dronedarone (Multaq) 400 mg BIDACLD PO Last administered on 03/07/17 17:24; Start 03/05/17 at 11:30 Fentanyl (Duragesic 50mcg/ Hr Patch) 1 patch Q3DAYS TD Last administered on 08:25; Start 03/07/17 at 09:00 Ferrous Sulfate (Feosol) 325 mg DAILYWBKFT PO Last administered on 03/08/17 08 :38; Start 03/05/17 at 08:00 Furosemide (Lasix) 20 mg DAILY PO Last administered on 03/06/17 08:29; Start 03/05/17 at 09:00; Stop 03/06/17 at 10:07; Status DC Lisinopril (Prinivil) 10 mg DAILY PO Last administered on 03/08/17 08:38; Start 03/05/17 at 09:00 Pantoprazole Sodium (Protonix) 40 mg DAILYAC PO Last administered on 03/08/17 08:38; Start 03/05/17 at 07:30 Warfarin Sodium (Coumadin) 3 mg DAILY16 PO Last administered on 03/07/17 17:24 ; Start 03/05/17 at 16:00 Vitamin D (Vitamin D3) 500 unit DAILY PO Last administered on 03/08/17 08:38; Start 03/05/17 at 09:00 Potassium Chloride (Klor-Con) 10 meq BIDWMEALS PO Last administered on 08:30; Start 03/05/17 at 08:00; Stop 03/06/17 at 10:07; Status DC Non-Formulary Medication 3 ml RTQID NEB ; Start 03/05/17 at 08:00; Status UNV Methylprednisolone Sodium Succinate (Solu-Medrol 125mg Vial) 80 mg Q8HRS IV Last administered on 03/06/17 05:28; Start 03/04/17 at 23:15; Stop 03/06/17 at 10:07; Status DC Albuterol/ Ipratropium (Duoneb) 3 ml RTQID NEB Last administered on 03/08/17 11:23; Start 03/05/17 at 08:00 Albuterol Sulfate 2.5 mg 2.5 mg PRN QID PRN NEB SHORTNESS OF BREATH; Start at 22:45 Sodium Chloride (Iv Sodium Chloride 0.9% 1000ml Bag) 1,000 ml @ 100 mls/hr Q10H IV Last administered on 03/07/17 17:25; Start 03/04/17 at 23:00; Stop at 23:00; Status DC Warfarin Sodium (Coumadin Per Physician) 1 each PRN DAILY PRN MC SEE COMMENTS Last administered on 03/07/17 15:46; Start 03/05/17 at 16:00 Budesonide (Pulmicort) 0.5 mg RTBID NEB Last administered on 03/08/17 07:25; Start 03/05/17 at 20:00 Methylprednisolone Sodium Succinate 40 mg 40 mg Q8HRS IV Last administered on 21:34; Start 03/06/17 at 14:00; Stop 03/07/17 at 23:00; Status DC Iron Sucrose/ Sodium Chloride (Venofer/Iv Sodium Chloride 0.9% 250ml) 275 ml @ 78.571 mls/ hr 1X ONCE IV Last administered on 03/06/17 12:34; Start at 11:00; Stop 03/06/17 at 14:29; Status DC Darbepoetin James (Aranesp) 60 mcg 1X ONCE SQ Last administered on 03/07/17 12 :12; Start 03/07/17 at 11:00; Stop 03/07/17 at 11:01; Status DC Prednisone (Prednisone) 40 mg DAILY PO Last administered on 03/08/17 08:38; Start 03/08/17 at 09:00 Botulinum Toxin Type A (Botox) 100 unit 1X ONCE ID ; Start 03/07/17 at 10:45; Stop 03/07/17 at 10:48; Status DC Multi-Ingred Cream/Lotion/Oil/ Oint (Hydrocerin) 1 nubia BID TP Last administered on 03/08/17t 08:40; Start 03/07/17 at 11:30 Active Scripts Active [Ipratropium/Albuterol Sulfate] 3 ML Nebu 3 Ml NEB RTQID Feosol (Ferrous Sulfate) 325 Mg Tablet 325 Mg PO DAILYWBKFT Reported Furosemide 20 Mg Tablet 1 Tab PO DAILY Gave dose this morning Take again tomorrow morning Atorvastatin Calcium 10 Mg Tablet 10 Mg PO HS Dose given last night Take again tonight Pantoprazole Sodium 40 Mg Tablet.dr 40 Mg PO DAILY Gave dose this morning Take again tomorrow morning Warfarin Sodium 3 Mg Tablet 3 Mg PO DAILY Gave dose yesterday evening Take again this evening FENTANYL 50mcg/hr (Fentanyl) 1 Each Patch.td72 1 Patch TP Q3DAYS Changed today Change again on the Vitamin D (Cholecalciferol (Vitamin D3)) 400 Unit Capsule 400 Unit PO DAILY Gave dose this morning Take again tomorrow morning Tylenol (Acetaminophen) 325 Mg Tablet 325 Mg PO PRN Q6HRS PRN Not given on this admission Take when needed Potassium Chloride 10 Meq Capsule.er 10 Meq PO BID Gave dose this morning Take again tonight Multaq (Dronedarone Hcl) 400 Mg Tablet 400 Mg PO BIDACLD Gave dose before lunch Take again tonight before dinner Amlodipine Besylate 10 Mg Tablet 10 Mg PO DAILY Gave this morning Take again tomorrow morning Digoxin 125 Mcg Tablet 125 Mcg PO DAILY Gave dose this morning Take again tomorrow morning Baclofen 10 Mg Tablet 10 Mg PO HS Dose given last night Take again tonight Lisinopril 20 Mg Tablet 10 Mg PO DAILY Gave dose this morning Take again tomorrow morning Vitals/I & O Vital Sign - Last 24 Hours 03/07/17 03/07/17 03/07/17 03/07/17 15:00 15:00 17:24 19:00 Temp 99.1 98.3 99.1 98.3 Pulse 76 76 71 Resp 16 18 B/P 132/70 132/70 124/67 Pulse Ox 97 95 97 O2 Delivery Room Air Room Air 03/07/17 03/07/17 03/07/17 4/28/17 20:00 20:23 23:00 03:00 Temp 98.2 98.4 98.2 98.4 Pulse 69 62 Resp 18 16 B/P 154/70 132/68 Pulse Ox 96 98 95 O2 Delivery Room Air Room Air 03/08/17 03/08/17 03/08/17 03/08/17 07:00 07:26 07:27 08:00 Temp 97.8 97.8 Pulse 70 Resp 16 B/P 142/80 Pulse Ox 96 94 94 O2 Delivery Room Air Room Air Room Air Room Air 03/08/17 03/08/17 03/08/17 03/08/17 08:38 08:38 08:40 11:22 Temp 98.3 98.3 Pulse 62 62 62 71 Resp 20 B/P 132/68 132/68 132/68 136/78 Pulse Ox 95 O2 Delivery Room Air 03/08/17 11:25 Pulse Ox 95 O2 Delivery Room Air Intake and Output 03/07/17 03/07/17 03/08/17 15:00 23:00 07:00 Intake Total 480 ml 360 ml 360 ml Output Total 500 ml Balance 480 ml -140 ml 360 ml DAVEY DAVID MD Mar 08, 2017 12:33
--- NOTE | 2017-03-08 14:12 | PDOC ---
PULMONARY PROGRESS NOTES Subjective pt feels better Vitals Vital Signs Date Time Temp Pulse Resp B/P Pulse Ox O2 Delivery O2 Flow Rate FiO2 03/08/17 11:25 95 Room Air 03/08/17 11:22 98.3 71 20 136/78 98.3 General: Alert, No acute distress Lungs: Wheezing Cardiovascular: S1 Abdomen: Soft Neuro Exam: Alert Extremities: No Edema Skin: Warm Labs Laboratory Tests Test 03/07/17 03:43 03/07/17 12:40 03/08/17 04:45 03/08/17 11:20 White Blood Count 6.1x10^3/uL (4.0-11.0) 6.1x10^3/uL (4.0-11.0) Red Blood Count 2.67x10^6/uL (3.50-5.40) 2.87x10^6/uL (3.50-5.40) Hemoglobin 7.9g/dL (12.0-15.5) 8.4g/dL (12.0-15.5) Hematocrit 23.8% (36.0-47.0) 25.4% (36.0-47.0) Mean Corpuscular Volume 89fL (79-100) 89fL (79-100) Mean Corpuscular Hemoglobin 30pg (25-35) 29pg (25-35) Mean Corpuscular Hemoglobin Concent 33g/dL (31-37) 33g/dL (31-37) Red Cell Distribution Width 16.5% (11.5-14.5) 16.3% (11.5-14.5) Platelet Count 143x10^3/uL (140-400) 149x10^3/uL (140-400) Neutrophils (%) (Auto) 95% (31-73) 94% (31-73) Lymphocytes (%) (Auto) 3% (24-48) 4% (24-48) Monocytes (%) (Auto) 2% (0-9) 3% (0-9) Eosinophils (%) (Auto) 0% (0-3) 0% (0-3) Basophils (%) (Auto) 0% (0-3) 0% (0-3) Neutrophils # (Auto) 5.7x10^3uL (1.8-7.7) 5.7x10^3uL (1.8-7.7) Lymphocytes # (Auto) 0.2x10^3/uL (1.0-4.8) 0.2x10^3/uL (1.0-4.8) Monocytes # (Auto) 0.1x10^3/uL (0.0-1.1) 0.2x10^3/uL (0.0-1.1) Eosinophils # (Auto) 0.0x10^3/uL (0.0-0.7) 0.0x10^3/uL (0.0-0.7) Basophils # (Auto) 0.0x10^3/uL (0.0-0.2) 0.0x10^3/uL (0.0-0.2) Reticulocyte Count (auto) 1.5% (0.5-2.5) Sodium Level 148mmol/L (136-145) 147mmol/L (136-145) Potassium Level 3.8mmol/L (3.5-5.1) 3.6mmol/L (3.5-5.1) Chloride Level 112mmol/L (98-107) 111mmol/L (98-107) Carbon Dioxide Level 27mmol/L (21-32) 28mmol/L (21-32) Anion Gap 9 (6-14) 8 (6-14) Blood Urea Nitrogen 47mg/dL (7-20) 40mg/dL (7-20) Creatinine 1.9mg/dL (0.6-1.0) 1.6mg/dL (0.6-1.0) Estimated GFR (Cockcroft-Gault) 30.3 36.9 Glucose Level 137mg/dL (70-99) 130mg/dL (70-99) Calcium Level 8.0mg/dL (8.5-10.1) 8.3mg/dL (8.5-10.1) Prothrombin Time 29.2SEC (11.7-14.0) 31.6SEC (11.7-14.0) Prothromb Time International Ratio 3.0 (0.8-1.1) 3.3 (0.8-1.1) Erythropoietin 8.7mIU/mL (2.6-18.5) Vitamin B12 Level 541pg/mL (247-911) Serum Folate 10.81ng/ml (3.2-20.0) Laboratory Tests Test 03/08/17 04:45 03/08/17 11:20 White Blood Count 6.1x10^3/uL (4.0-11.0) Red Blood Count 2.87x10^6/uL (3.50-5.40) Hemoglobin 8.4g/dL (12.0-15.5) Hematocrit 25.4% (36.0-47.0) Mean Corpuscular Volume 89fL (79-100) Mean Corpuscular Hemoglobin 29pg (25-35) Mean Corpuscular Hemoglobin Concent 33g/dL (31-37) Red Cell Distribution Width 16.3% (11.5-14.5) Platelet Count 149x10^3/uL (140-400) Neutrophils (%) (Auto) 94% (31-73) Lymphocytes (%) (Auto) 4% (24-48) Monocytes (%) (Auto) 3% (0-9) Eosinophils (%) (Auto) 0% (0-3) Basophils (%) (Auto) 0% (0-3) Neutrophils # (Auto) 5.7x10^3uL (1.8-7.7) Lymphocytes # (Auto) 0.2x10^3/uL (1.0-4.8) Monocytes # (Auto) 0.2x10^3/uL (0.0-1.1) Eosinophils # (Auto) 0.0x10^3/uL (0.0-0.7) Basophils # (Auto) 0.0x10^3/uL (0.0-0.2) Sodium Level 147mmol/L (136-145) Potassium Level 3.6mmol/L (3.5-5.1) Chloride Level 111mmol/L (98-107) Carbon Dioxide Level 28mmol/L (21-32) Anion Gap 8 (6-14) Blood Urea Nitrogen 40mg/dL (7-20) Creatinine 1.6mg/dL (0.6-1.0) Estimated GFR (Cockcroft-Gault) 36.9 Glucose Level 130mg/dL (70-99) Calcium Level 8.3mg/dL (8.5-10.1) Serum Folate 10.81ng/ml (3.2-20.0) Prothrombin Time 31.6SEC (11.7-14.0) Prothromb Time International Ratio 3.3 (0.8-1.1) Medications Active Scripts Medications Dose Route/Sig Days Date Category Dose Instructions Furosemide 20 Mg Tablet 1 Tab PO DAILY 01/16/17 Reported Gave dose this morning Take again tomorrow morning Atorvastatin Calcium 10 Mg Tablet 10 Mg PO HS 01/16/17 Reported Dose given last night Take again tonight Pantoprazole Sodium 40 Mg Tablet.dr 40 Mg PO DAILY 11/19/16 Reported Gave dose this morning Take again tomorrow morning Warfarin Sodium 3 Mg Tablet 3 Mg PO DAILY 11/19/16 Reported Gave dose yesterday evening Take again this evening [Ipratropium/Albuterol Sulfate] 3 ML Nebu 3 Ml NEB RTQID 02/09/15 Rx Feosol (Ferrous Sulfate) 325 Mg Tablet 325 Mg PO DAILYWBKFT 02/09/15 Rx FENTANYL 50mcg/hr (Fentanyl) 1 Each Patch.td72 1 Patch TP Q3DAYS 02/06/15 Reported Changed today Change again on the Vitamin D (Cholecalciferol (Vitamin D3)) 400 Unit Capsule 400 Unit PO DAILY 03/30/14 Reported Gave dose this morning Take again tomorrow morning Tylenol (Acetaminophen) 325 Mg Tablet 325 Mg PO PRN Q6HRS PRN 03/30/14 Reported Not given on this admission Take when needed Potassium Chloride 10 Meq Capsule.er 10 Meq PO BID 03/30/14 Reported Gave dose this morning Take again tonight Multaq (Dronedarone Hcl) 400 Mg Tablet 400 Mg PO BIDACLD 03/30/14 Reported Gave dose before lunch Take again tonight before dinner Amlodipine Besylate 10 Mg Tablet 10 Mg PO DAILY 03/30/14 Reported Gave this morning Take again tomorrow morning Digoxin 125 Mcg Tablet 125 Mcg PO DAILY 03/30/14 Reported Gave dose this morning Take again tomorrow morning Baclofen 10 Mg Tablet 10 Mg PO HS 03/30/14 Reported Dose given last night Take again tonight Lisinopril 20 Mg Tablet 10 Mg PO DAILY 03/30/14 Reported Gave dose this morning Take again tomorrow morning Impression . 1. Acute respiratory distress secondary to acute exacerbation of chronic obstructive pulmonary disease. 2. Acute exacerbation of chronic obstructive pulmonary disease. 3. Tobacco dependent, in remission. 4. Acute on chronic renal insufficiency. 5. Chronic atrial fibrillation. 6. Cardiovascular accident with left-sided hemiparesis. 7. Dysphagia. Plan . pt less wheezing today, home ok from my standpoint 1. We will continue current steroids and nebulized treatments. 2. No need for antibiotics. 3. We will add Pulmicort. 4. Suspect some of the patient's symptoms may be related to allergies. 5. Clinically I do not think she is chronically aspirating PEBBLES GRANADO MD Mar 08, 2017 14:12
[2017-03-08 16:21] LABS: HGB A 97.9 % (94.0-98.0); HGB A2 2.1 % (0.7-3.1); HGB ELECROPHORESIS COMMENT Note: (.)
--- NOTE | 2017-03-10 11:43 | PDOC ---
Provider Note Provider Note Discharge summary dictated. #[id number] ELYSSA CHU MD Mar 10, 2017 11:43
--- NOTE | 2017-03-10 13:05 | DS ---
DATE OF DISCHARGE: 03/08/2017 REASON FOR ADMISSION TO THE HOSPITAL: COPD with exacerbation. CONSULTATIONS: 1. PEBBLES GRANADO MD. 2. MARIPOSA CONDON DO 3. DANIELLE GARCIA MD. PROCEDURES DONE: Doppler lower extremity and ultrasound of the kidneys. HOSPITAL COURSE: She is an 86-year-old female with history of previous CVA, chronic atrial fibrillation on Coumadin as well as Multaq for arrhythmia control. She was having shortness of breath, came to the hospital, was found to have COPD with exacerbation; was given IV Solu-Medrol, oxygen and breathing treatments. The patient was found to be anemic, hemoglobin was around 7.5, seen by Hematology and her iron levels were low, was given iron IV infusion. The patient was seen by Pulmonology, Serjio and also rehabilitation. The patient had a Doppler right lower leg shows mild decrease in circulation, but no major blockages. The patient has right hemiparesis has contractures of upper extremity and also right lower extremity. The patient wanted to go back home. She lives with her daughter, was discharged with home health. FINAL DIAGNOSES: 1. Chronic obstructive pulmonary disease with acute exacerbation. 2. Anemia of chronic disease. 3. Chronic atrial fibrillation, rate controlled with Multaq. 4. Anticoagulation with Coumadin. INR is therapeutic between 2 and 3. 5. Hypertension. 6. Hyperlipidemia. 7. History of previous smoking, does not smoke now. She is up to date on flu and pneumonia vaccinations. ELYSSA CHU MD DR: NATY/humza JOB#: [id number] / [id number] JOBY Forte
== END 2017-03-08 16:06 | disposition home health service (06) | DRG 190 ==
LOC: ER 16:23 → ED HOLD 18:06 → 5 SOUTH 20:08
PROVIDERS: ADMIT Internal Medicine; ATTEND Internal Medicine
DX: J44.1 Chronic obstructive pulmonary disease with (acute) exacerbation (principal); E43 Unspecified severe protein-calorie malnutrition; N17.9 Acute kidney failure, unspecified; I13.0 Hypertensive heart and chronic kidney disease with heart failure and stage 1 through stage 4 chronic kidney disease, or unspecified chronic kidney disease; I50.32 Chronic diastolic (congestive) heart failure; I69.351 Hemiplegia and hemiparesis following cerebral infarction affecting right dominant side; I69.354 Hemiplegia and hemiparesis following cerebral infarction affecting left non-dominant side; J44.0 Chronic obstructive pulmonary disease with (acute) lower respiratory infection; N18.3 Chronic kidney disease, stage 3 (moderate); D63.1 Anemia in chronic kidney disease; E78.00 Pure hypercholesterolemia, unspecified; E78.5 Hyperlipidemia, unspecified; F17.201 Nicotine dependence, unspecified, in remission; I27.2 Other secondary pulmonary hypertension; I34.0 Nonrheumatic mitral (valve) insufficiency; I48.2 Chronic atrial fibrillation; N18.2 Chronic kidney disease, stage 2 (mild); Z96.651 Presence of right artificial knee joint; R13.10 Dysphagia, unspecified; Z68.20 Body mass index [BMI] 20.0-20.9, adult; Z79.01 Long term (current) use of anticoagulants; Z82.49 Family history of ischemic heart disease and other diseases of the circulatory system
CPT/HCPCS: 36415; 71010; 76770; 80048; 80053; 80162; 82607; 82668; 82728; 82746; 83020; 83540; 83550; 84484; 85007; 85027; 85045; 85610; 93005; 93926; 94640; 94760; 96374; J0881; J1756; J2920; J2930; J7030; J7050; J7512; J7620; 97110; 99285-25

== ENCOUNTER 2017-03-30 14:20 | Inpatient (IN) | payer MEDICARE, OTHER ==
[~2017-03-30] VITALS: Ht 165.1 cm; Wt 56.7 kg
[~2017-03-30 14:20] MED LIST changes: -POTA10CA PO; +POTASSIUM CHLO10 MEQ PO; +PRED20TA PO
[2017-03-30 15:03] LABS: BASO % 1 % (0-3); EOS % 7 % (0-3); HEMATOCRIT 28.8 % (36.0-47.0); HEMOGLOBIN 9.6 g/dL (12.0-15.5); LYMPH # 0.6 x10^3/uL (1.0-4.8); LYMPH % 23 % (24-48); MEAN CORPUSCULAR HEMOGLOBIN 29 pg (25-35); MEAN CORPUSCULAR HGB CONC 33 g/dL (31-37); MEAN CORPUSCULAR VOLUME 88 fL (79-100); MONO % 10 % (0-9); NEUT % 59 % (31-73); PLATELET COUNT 180 x10^3/uL (140-400); RED BLOOD COUNT 3.27 x10^6/uL (3.50-5.40); RED CELL DISTRIBUTION WIDTH 16.8 % (11.5-14.5); WHITE BLOOD COUNT 2.5 x10^3/uL (4.0-11.0)
--- NOTE | 2017-03-30 15:11 | EKG ---
[facility] [address] [place] [address] Test Date: 2017-03-30 Test Time: 15:02:05 Pat Name: CLARA REESE Department: Room: Gender: F Ladder Operator: : [id number] Requested By: Doe RAO Order Number: [id number] Reading MD: Meredith Jeffers Measurements Intervals [place] Rate: 49 P: -90 VT: 256 QRS: -39 QRSD: 88 T: 55 QT: 464 QTc: 422 Interpretive Statements SINUS BRADYCARDIA PROLONGED VT INTERVAL ABNORMAL LEFT AXIS DEVIATION LEFT ANTERIOR FASCICULAR BLOCK QRS(T) CONTOUR ABNORMALITY CONSISTENT WITH ANTEROSEPTAL INFARCT PROBABLY OLD RI6.01 Unconfirmed report Compared to ECG 03/04/2017 16:58:44 First degree AV block now present Left-axis deviation now present Electronically Signed On 04-01-2017 21:23:35 CDT by Meredith Jeffers
[2017-03-30 15:12] LABS: PROTHROMBIN TIME PATIENT 29.1 SEC (11.7-14.0)
[2017-03-30 15:21] LABS: CALCIUM 8.8 mg/dL (8.5-10.1); CREATININE 1.6 mg/dL (0.6-1.0); GFR 36.9; POTASSIUM 3.5 mmol/L (3.5-5.1)
--- NOTE | 2017-03-30 15:36 | PHYS DOC ---
Past Medical History Past Medical History: CHF, COPD, CVA, High Cholesterol, Hypertension, Stroke Additional Past Medical Histor: R SIDE DEFICITS Past Surgical History: Knee Replacement Additional Past Surgical Histo: R KNEE REPLACEMENT Alcohol Use: None Drug Use: None Adult General Chief Complaint Chief Complaint: WEAKNESS/GENERALIZED HPI HPI Patient is a 86 year old female who presents with family for concern of acute on chronic right-sided weakness and a fall last night around 10 PM. She can usually self transfer to a bedside commode, but she fell onto her right side as night due to increased right-sided weakness from baseline. She denies hitting her head or having neck or back pain. She has right-sided weakness from 3 prior strokes affecting the side. She has slight general right leg pain with no specific joint pain noted. She denies headache, vision changes, dizziness, lightheadedness, nausea or vomiting, fever or chills, numbness, tingling, chest pain, dyspnea, palpitations, abdominal pain. Review of Systems Review of Systems Constitutional: Denies fever or chills [] Eyes: Denies change in visual acuity, redness, or eye pain [] HENT: Denies nasal congestion or sore throat [] Respiratory: Denies cough or shortness of breath [] Cardiovascular: No additional information not addressed in HPI [] GI: Denies abdominal pain, nausea, vomiting, bloody stools or diarrhea [] : Denies dysuria or hematuria [] Musculoskeletal: Denies back pain or joint pain [] Integument: Denies rash or skin lesions [] Neurologic: Denies headache or sensory changes [] Endocrine: Denies polyuria or polydipsia [] Allergies Allergies Allergies Coded Allergies Type Severity Reaction Last Updated Verified Penicillins Allergy Intermediate Hives 02/08/15 Yes Physical Exam Physical Exam Constitutional: Well developed, well nourished, no acute distress, non-toxic appearance. [] HENT: Normocephalic, atraumatic, bilateral external ears normal, oropharynx moist, no oral exudates, nose normal. [] Eyes: PERRLA, EOMI. [] Neck: Normal range of motion, supple. [] Cardiovascular:Heart rate regular rhythm [] Lungs & Thorax: Bilateral breath sounds clear to auscultation [] Abdomen: Bowel sounds normal, soft, no tenderness. [] Skin: Warm, dry, no erythema, no rash. [] Back: No tenderness, no CVA tenderness. [] Extremities: No extremity tenderness, ROM intact, bilateral 2+ lower extremity edema. Right lower extremity with some external rotation, but equal length. [] Neurologic: Alert and oriented X 3, normal sensory function, right-sided facial and extremity weakness noted, still can move right upper extremity and right lower extremity, can raise them off of bed. No other neurologic deficits noted. [] Psychologic: Affect normal, judgement normal, mood normal. [] Current Patient Data Vital Signs Vital Signs Date Time Temp Pulse Resp B/P (MAP) Pulse Ox O2 Delivery O2 Flow Rate FiO2 03/30/17 16:02 47 128/71 (90) 98 Room Air 03/30/17 14:40 98.5 18 98.5 Lab Values Laboratory Tests Test 03/30/17 14:50 White Blood Count 2.5 x10^3/uL (4.0-11.0) L Red Blood Count 3.27 x10^6/uL (3.50-5.40) L Hemoglobin 9.6 g/dL (12.0-15.5) L Hematocrit 28.8 % (36.0-47.0) L Mean Corpuscular Volume 88 fL (79-100) Mean Corpuscular Hemoglobin 29 pg (25-35) Mean Corpuscular Hemoglobin Concent 33 g/dL (31-37) Red Cell Distribution Width 16.8 % (11.5-14.5) H Platelet Count 180 x10^3/uL (140-400) Neutrophils (%) (Auto) 59 % (31-73) Lymphocytes (%) (Auto) 23 % (24-48) L Monocytes (%) (Auto) 10 % (0-9) H Eosinophils (%) (Auto) 7 % (0-3) H Basophils (%) (Auto) 1 % (0-3) Neutrophils # (Auto) 1.5 x10^3uL (1.8-7.7) L Lymphocytes # (Auto) 0.6 x10^3/uL (1.0-4.8) L Monocytes # (Auto) 0.3 x10^3/uL (0.0-1.1) Eosinophils # (Auto) 0.2 x10^3/uL (0.0-0.7) Basophils # (Auto) 0.0 x10^3/uL (0.0-0.2) Prothrombin Time 29.1 SEC (11.7-14.0) H Prothrombin Time INR 3.0 (0.8-1.1) H PTT 48 SEC (24-38) H Sodium Level 143 mmol/L (136-145) Potassium Level 3.5 mmol/L (3.5-5.1) Chloride Level 105 mmol/L (98-107) Carbon Dioxide Level 31 mmol/L (21-32) Anion Gap 7 (6-14) Blood Urea Nitrogen 14 mg/dL (7-20) Creatinine 1.6 mg/dL (0.6-1.0) H Estimated GFR (Cockcroft-Gault) 36.9 Glucose Level 122 mg/dL (70-99) H Calcium Level 8.8 mg/dL (8.5-10.1) Laboratory Tests 03/30/17 14:50 Laboratory Tests 03/30/17 14:50 EKG EKG EKG as interpreted by me as sinus bradycardia with first-degree heart block, rate 49, no ST-T changes, P-R 256, QTC 422, no ectopy Radiology/Procedures Radiology/Procedures Right hip x-ray as interpreted by me was no fracture or dislocation CT head without contrast as per radiology No acute intracranial process. No acute interval change seen when compared to recent MR exam. Course & Med Decision Making Course & Med Decision Making Pertinent Labs and Imaging studies reviewed. (See chart for details) NIH 4 for right face, RUE, and RLE weakness. With concern for acute on chronic right sided weakness, will admit for neurology consultation. She is not a tpa candidate due to onset of symptoms. Discussed case with Dr. Kelsey, agricultural economics teacher for Dr. Rivas, who will admit. Neurology consult placed. Dragon Disclaimer Dragon Disclaimer This electronic medical record was generated, in whole or in part, using a voice recognition dictation system. Departure Departure Impression: Primary Impression: Acute right-sided weakness Disposition: ADMITTED INPATIENT Condition: STABLE Referrals: JOBY RIVAS (PCP) Doe RAO MD March 30, 2017 15:36
[2017-03-30] MEDS ORDERED: ACETAMINOPHEN 325 MG TABLET. PO PRN ×2 (17:15→18:45)
[2017-03-30] MEDS ORDERED: ONDANSETRON PF 4 MG/2 ML VIAL. IV PRN (17:15)
[2017-03-30 18:40] VITALS: BP 143/69
--- NOTE | 2017-03-30 19:26 | RAD ---
INDICATION: Dizziness, acute on chronic right-sided weakness since last night. COMPARISON: None, correlation with MR brain dated January 16, 2017 TECHNIQUE: Axial, noncontrast CT images obtained through the head. One or more of the following individualized dose reduction techniques were utilized for this examination: 1. Automated exposure control; 2. Adjustment of the mA and/or kV according to patient size; 3. Use of iterative reconstruction technique. FINDINGS: No acute intracranial process is identified, specifically no acute blood products, midline shift, mass effect or extra-axial fluid collections. Periventricular and subcortical white matter low attenuation is re-demonstrated, with focal, chronic infarct re-demonstrated in the left basal ganglia as well as involving the right cerebellar hemisphere. No definite new area of low attenuation is seen to suggest ischemia. Ventricles and sulci appear appropriate for patient's age. Basilar cisterns are maintained. Some mucosal thickening is present within the visualized paranasal sinuses. Mastoid air cells are clear. No calvarial fracture is present. Overlying scalp is intact. IMPRESSION: No acute intracranial process. No acute interval change seen when compared to recent MR exam. Electronically signed by: Lore Grissom (March 30, 2017 16:00:42)
[2017-03-30 19:48] VITALS: BP 120/59
[2017-03-30] MEDS ORDERED: NON FORMULARY ITEM ([Ipratropium/Albuterol Sulfate] 3 ML) NEB SCH (20:00)
[2017-03-30] MEDS: DRONEDARONE HCL 400 MG TABLET PO SCH (20:00)
--- NOTE | 2017-03-30 20:37 | RAD ---
PROCEDURE MRI brain without contrast. HISTORY Right-sided weakness. Recent fall. TECHNIQUE Sagittal T1, axial T1, axial T2, axial FLAIR, axial T2 gradient, coronal T2, and diffusion imaging with ADC map were performed. There is motion degradation. COMPARISON CT head from earlier today. MRI from January 16, 2017. FINDINGS There is parenchymal volume loss, with a parietal predominance. There is an old right cerebellar infarct. There are old thalamic infarcts bilaterally. There is an old left basal ganglia and deep left frontal white matter infarct. There is moderate to severe probable small-vessel ischemic disease. There is no evidence of an acute infarct. There is no large intracranial hemorrhage or extra-axial fluid collection. There is no mass effect or midline shift. Central intracranial flow voids are preserved. There is ethmoid mucosal thickening and sphenoid mucosal thickening. Orbital contents are unremarkable. IMPRESSION 1. Motion limited study demonstrates no evidence of an acute infarct. 2. There are several old infarcts which are stable compared to prior MRI. 3. There is brain parenchymal volume loss with a parietal lobe predominance. 4. There are areas of probable small vessel ischemic disease. Electronically signed by: Rojas Causey MD (March 30, 2017 20:36:11)
[2017-03-30] MEDS: IPRATRPIUM/ALBUTEROL 0.5/2.5MG 3 ML NEBU. NEB SCH (21:23)
[2017-03-30] MEDS: BACLOFEN 10 MG TABLET. PO SCH (22:42)
[2017-03-30] MEDS: amLODIPine BESYLATE 10 MG TABLET PO SCH (22:42)
[2017-03-30] MEDS: ATORVASTATIN CALCIUM 10 MG TABLET. PO SCH (22:42)
[2017-03-30 23:11] VITALS: BP 109/60
[2017-03-30 23:45] VITALS: BP 109/60
[2017-03-31 03:16] VITALS: BP 98/52
[2017-03-31 07:00] VITALS: BP 100/55
[2017-03-31] MEDS: FERROUS SULFATE 325 MG TABLET. PO SCH (08:34)
[2017-03-31] MEDS: PANTOPRAZOLE 40 MG TABLET.DR. PO SCH (08:34)
[2017-03-31] MEDS: DIGOXIN 125 MCG TABLET. PO SCH (08:35)
[2017-03-31] MEDS: POTASSIUM CHLORIDE 10 MEQ TABLET.ER. PO SCH ×2 (08:35→16:09)
[2017-03-31] MEDS: FUROSEMIDE 20 MG TABLET PO SCH (08:36)
[2017-03-31] MEDS: amLODIPine BESYLATE 10 MG TABLET PO SCH (08:37)
[2017-03-31] MEDS: LISINOPRIL 10 MG TABLET PO SCH (08:38)
[2017-03-31] MEDS: CHOLECALCIFEROL (VITAMIN D3) 1,000 UNIT TABLET PO SCH (08:39)
--- NOTE | 2017-03-31 08:40 | RAD ---
Indication: Right hip pain after a fall. Technique: Portable 2 views of the right hip were obtained. Findings: Lateral view is slightly limited. No definite fracture or dislocation is apparent. There are minimal degenerative changes. There are vascular calcifications. Impression: Negative for fracture.
[2017-03-31] MEDS: predniSONE 20 MG TABLET PO SCH (08:41)
[2017-03-31] MEDS: IPRATRPIUM/ALBUTEROL 0.5/2.5MG 3 ML NEBU. NEB SCH ×4 (08:59→20:20)
[2017-03-31] MEDS ORDERED: fentaNYL 50MCG/HR PATCH 1 PATCH PATCH.TD72 TD SCH (09:00)
[2017-03-31 11:00] VITALS: BP 110/54
--- NOTE | 2017-03-31 11:47 | PDOC ---
Provider Note Provider Note Pt seen .H&P dictated. #[id number] ELYSSA CHU MD March 31, 2017 11:47
[2017-03-31] MEDS: DRONEDARONE HCL 400 MG TABLET PO SCH ×2 (11:55→16:11)
--- NOTE | 2017-03-31 11:59 | PDOC2 ---
NEUROLOGY CONSULT Date of Admission Date of Admission DATE: 03/31/17 TIME: 11:52 Reason for Consult Reason for Consult: 03-30-2017 Right side weakness. Fall, hurt right side UE and LE. 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 CHF HTN HLD Aortic A disease. No evidence of acute CVA this time. RECOMMENDATIONS/PLAN: MRI w/o contrast performed. She has been treated with Coumadin. Continue Lipitor 10 mg HS. Treat medical diseases, OT/PT. Fasting lipids tested in 01/25. Echo performed in 01/25. Carotid A US + Doppler perform in 01/25. HISTORY OF THE PRESENT ILLNESS: 86-y-old female patient with above medical diseases had old CVA with right side hemiplegia and spasm. She had a fall down on her right side at home and her right side hemiplegia became worse to be brought to [facility]. CT and MRI were performed and acute CVA which showed no acute CVA this time. PAST MEDICAL HISTORY: Please see above. PAST SURGERY HISTORY: No major surgery recently. ALLERGY: Unknown MEDICATIONS: Refer to [facility] HISTORY: Non contributory. SOCIAL HISTORY: Lives at home.. Denies current smoking, drinking, and illicit drug use. REVIEW OF SYSTEMS: Constitutional: No malnutrition, weight loss, cachexia. Head: No traumatic brain or head injury. Skin: No edema, or rash. Ear: No infection, tinnitus. Eyes: No vision loss or color blindness. Nose: No bleeding or purulent discharges. Hearing: Hearing decrease. Neck: No injury. Breast: No history of cancer, masses,or discharges. Cardiac: CHF, HTN, HLD. Pulmonary: No COPD. GI: No GI ulcer, GI bleeding. Urinary/genital: UTI. Endocrinologic: No cousin face, craniofacial dysmorphism, polydactyly. Skeletomuscular: Generalized weakness. Neurological: see HP. Psychiatric: Denies drug use/abuse. Otherwise, not [id number] review of systems. PHYSICAL EXAMINATION: General appearance is in subacute distress. HEENT: Normocephalic and nontraumatic. Eyes, nose, ears, and throat are unremarkable. Neck is supple. No lymphadenopathy. No crepitus. Cardiovascular: S1, S2, seemed regular rate and rhythm. Pulmonary: Clear to auscultation bilaterally. Abdomen: Bowel sounds are positive. Abdomen is soft, nontender, and nondistended. Extremities: No rash, lesions, or edema. No restriction of range of motion NEUROLOGICAL EXAMINATION: Awake. Oriented to place and person but not to time. PERRL. EOMI. CN: no focal findings. Muscle tone: within normal in left side, significantly increased in right side especially right UE. Muscle strength: 3+ right UE and LE, 4+ left side. DTR: 2 Plantar reflex: Neutral response bilaterally Gait: she walks with a walker as her baseline. Sensory exam: no acute abnormal findings. No acute cerebellar signs. F-T-N fine on left side. Current Medications Current Medications Current Medications Ondansetron HCl (Zofran) 4 mg PRN Q8HRS PRN IV NAUSEA/VOMITING; Start 03/30/17 at 17:15; Stop 03/31/17 at 17:14 Acetaminophen (Tylenol) 650 mg PRN Q4HRS PRN PO FEVER; Start 03/30/17 at 17:15 ; Stop 03/31/17 at 17:14 Acetaminophen (Tylenol) 325 mg PRN Q6HRS PRN PO PAIN; Start 03/30/17 at 18:45 Amlodipine Besylate (Norvasc) 10 mg DAILY PO Last administered on 03/30/17 22: 42; Start 03/30/17 at 20:00 Atorvastatin Calcium (Lipitor) 10 mg HS PO Last administered on 03/30/17 22:42 ; Start 03/30/17 at 21:00 Baclofen (Lioresal) 10 mg HS PO Last administered on 03/30/17 22:42; Start at 21:00 Digoxin (Lanoxin) 125 mcg DAILY PO ; Start 03/31/17 at 09:00 Dronedarone (Multaq) 400 mg BIDACLD PO ; Start 03/30/17 at 20:00 Fentanyl (Duragesic 50mcg/ Hr Patch) 1 patch Q3DAYS TD Last administered on 08:40; Start 03/31/17 at 09:00 Ferrous Sulfate (Feosol) 325 mg DAILYWBKFT PO Last administered on 03/31/17 08 :34; Start 03/31/17 at 08:00 Furosemide (Lasix) 20 mg DAILY PO Last administered on 03/31/17 08:36; Start 03/31/17 at 09:00 Lisinopril (Prinivil) 10 mg DAILY PO ; Start 03/31/17 at 09:00 Pantoprazole Sodium (Protonix) 40 mg DAILYAC PO Last administered on 03/31/17 08:34; Start 03/31/17 at 07:30 Prednisone (Prednisone) 40 mg DAILY PO Last administered on 03/31/17 08:41; Start 03/31/17 at 09:00 Warfarin Sodium (Coumadin) 3 mg DAILY16 PO ; Start 03/31/17 at 16:00 Vitamin D (Vitamin D3) 500 unit DAILY PO Last administered on 03/31/17 08:39; Start 03/31/17 at 09:00 Potassium Chloride (Klor-Con) 10 meq BIDWMEALS PO Last administered on 08:35; Start 03/31/17 at 08:00 Non-Formulary Medication 3 ml RTQID NEB ; Start 03/30/17 at 20:00; Status UNV Warfarin Sodium (Coumadin Per Physician) 1 each PRN DAILY PRN MC SEE COMMENTS; Start 03/30/17 at 19:30 Albuterol/ Ipratropium (Duoneb) 3 ml RTQID NEB Last administered on 03/31/17 08:59; Start 03/30/17 at 20:00 Active Scripts Active Prednisone 20 Mg Tablet 40 Mg PO DAILY 5 Days [Ipratropium/Albuterol Sulfate] 3 ML Nebu 3 Ml NEB RTQID Feosol (Ferrous Sulfate) 325 Mg Tablet 325 Mg PO DAILYWBKFT Reported Furosemide 20 Mg Tablet 1 Tab PO DAILY Gave dose this morning Take again tomorrow morning Atorvastatin Calcium 10 Mg Tablet 10 Mg PO HS Dose given last night Take again tonight Pantoprazole Sodium 40 Mg Tablet.dr 40 Mg PO DAILY Gave dose this morning Take again tomorrow morning Warfarin Sodium 3 Mg Tablet 3 Mg PO DAILY Gave dose yesterday evening Take again this evening FENTANYL 50mcg/hr (Fentanyl) 1 Each Patch.td72 1 Patch TP Q3DAYS Changed today Change again on the Vitamin D (Cholecalciferol (Vitamin D3)) 400 Unit Capsule 400 Unit PO DAILY Gave dose this morning Take again tomorrow morning Tylenol (Acetaminophen) 325 Mg Tablet 325 Mg PO PRN Q6HRS PRN Not given on this admission Take when needed Potassium Chloride 10 Meq Capsule.er 10 Meq PO BID Gave dose this morning Take again tonight Multaq (Dronedarone Hcl) 400 Mg Tablet 400 Mg PO BIDACLD Gave dose before lunch Take again tonight before dinner Amlodipine Besylate 10 Mg Tablet 10 Mg PO DAILY Gave this morning Take again tomorrow morning Digoxin 125 Mcg Tablet 125 Mcg PO DAILY Gave dose this morning Take again tomorrow morning Baclofen 10 Mg Tablet 10 Mg PO HS Dose given last night Take again tonight Lisinopril 20 Mg Tablet 10 Mg PO DAILY Gave dose this morning Take again tomorrow morning Allergies Allergies: Coded Allergies: Penicillins (Verified Allergy, Intermediate, Hives, 02/08/15) Vitals VITALS Vital Signs Date Time Temp Pulse Resp B/P (MAP) Pulse Ox O2 Delivery O2 Flow Rate FiO2 03/31/17 09:00 99 Room Air 03/31/17 08:40 20 03/31/17 08:38 85 100/55 03/31/17 07:00 98.1 98.1 Labs Labs Laboratory Tests Test 03/30/17 14:50 White Blood Count 2.5 x10^3/uL (4.0-11.0) Red Blood Count 3.27 x10^6/uL (3.50-5.40) Hemoglobin 9.6 g/dL (12.0-15.5) Hematocrit 28.8 % (36.0-47.0) Mean Corpuscular Volume 88 fL (79-100) Mean Corpuscular Hemoglobin 29 pg (25-35) Mean Corpuscular Hemoglobin Concent 33 g/dL (31-37) Red Cell Distribution Width 16.8 % (11.5-14.5) Platelet Count 180 x10^3/uL (140-400) Neutrophils (%) (Auto) 59 % (31-73) Lymphocytes (%) (Auto) 23 % (24-48) Monocytes (%) (Auto) 10 % (0-9) Eosinophils (%) (Auto) 7 % (0-3) Basophils (%) (Auto) 1 % (0-3) Neutrophils # (Auto) 1.5 x10^3uL (1.8-7.7) Lymphocytes # (Auto) 0.6 x10^3/uL (1.0-4.8) Monocytes # (Auto) 0.3 x10^3/uL (0.0-1.1) Eosinophils # (Auto) 0.2 x10^3/uL (0.0-0.7) Basophils # (Auto) 0.0 x10^3/uL (0.0-0.2) Prothrombin Time 29.1 SEC (11.7-14.0) Prothromb Time International Ratio 3.0 (0.8-1.1) Activated Partial Thromboplast Time 48 SEC (24-38) Sodium Level 143 mmol/L (136-145) Potassium Level 3.5 mmol/L (3.5-5.1) Chloride Level 105 mmol/L (98-107) Carbon Dioxide Level 31 mmol/L (21-32) Anion Gap 7 (6-14) Blood Urea Nitrogen 14 mg/dL (7-20) Creatinine 1.6 mg/dL (0.6-1.0) Estimated GFR (Cockcroft-Gault) 36.9 Glucose Level 122 mg/dL (70-99) Calcium Level 8.8 mg/dL (8.5-10.1) Laboratory Tests Test 03/30/17 14:50 White Blood Count 2.5 x10^3/uL (4.0-11.0) Red Blood Count 3.27 x10^6/uL (3.50-5.40) Hemoglobin 9.6 g/dL (12.0-15.5) Hematocrit 28.8 % (36.0-47.0) Mean Corpuscular Volume 88 fL (79-100) Mean Corpuscular Hemoglobin 29 pg (25-35) Mean Corpuscular Hemoglobin Concent 33 g/dL (31-37) Red Cell Distribution Width 16.8 % (11.5-14.5) Platelet Count 180 x10^3/uL (140-400) Neutrophils (%) (Auto) 59 % (31-73) Lymphocytes (%) (Auto) 23 % (24-48) Monocytes (%) (Auto) 10 % (0-9) Eosinophils (%) (Auto) 7 % (0-3) Basophils (%) (Auto) 1 % (0-3) Neutrophils # (Auto) 1.5 x10^3uL (1.8-7.7) Lymphocytes # (Auto) 0.6 x10^3/uL (1.0-4.8) Monocytes # (Auto) 0.3 x10^3/uL (0.0-1.1) Eosinophils # (Auto) 0.2 x10^3/uL (0.0-0.7) Basophils # (Auto) 0.0 x10^3/uL (0.0-0.2) Prothrombin Time 29.1 SEC (11.7-14.0) Prothromb Time International Ratio 3.0 (0.8-1.1) Activated Partial Thromboplast Time 48 SEC (24-38) Sodium Level 143 mmol/L (136-145) Potassium Level 3.5 mmol/L (3.5-5.1) Chloride Level 105 mmol/L (98-107) Carbon Dioxide Level 31 mmol/L (21-32) Anion Gap 7 (6-14) Blood Urea Nitrogen 14 mg/dL (7-20) Creatinine 1.6 mg/dL (0.6-1.0) Estimated GFR (Cockcroft-Gault) 36.9 Glucose Level 122 mg/dL (70-99) Calcium Level 8.8 mg/dL (8.5-10.1) KEILA DESIR MD March 31, 2017 11:59
[2017-03-31 15:00] VITALS: BP 112/60
--- NOTE | 2017-03-31 15:20 | HP ---
ADMIT DATE: 03/30/2017 LOCATION: 586 REASON FOR ADMISSION TO THE HOSPITAL: Fall at home, injury to the right hip and femur. HISTORY OF PRESENT ILLNESS: The patient is an 86-year-old female with history of previous stroke on the right side. She lives at home with her sister and she fell yesterday while transferring to a bedside commode. She fell on the right side and she was having more pain and was brought to the hospital. She had a CT, was negative. MRI of the brain was negative. X-rays of the hip was negative. She still has lot of pain slightly weaker on the right side. PAST MEDICAL HISTORY: The patient was admitted last month for COPD with exacerbation. She has a history of CVA with right-sided hemiparesis, atrial fibrillation on Coumadin, hypertension, hyperlipidemia, diastolic heart failure, mild renal insufficiency, and COPD. PAST SURGICAL HISTORY: Total knee replacement in the right and cataract in both eyes. ALLERGIES: PENICILLIN CAUSES HIVES. MEDICATIONS AT HOME: Amlodipine 10 mg, baclofen 10 mg, digoxin 125 mcg, Multaq 400 mg twice a day, fentanyl every 3 days, 50 mg iron daily, Lasix 40 mg daily, Prinivil 20 mg daily, Protonix 40 mg daily, Coumadin 3.5 mg daily, vitamin D daily, potassium 10 mEq daily, pravastatin 40 mg daily, and DuoNeb 4 times daily. SOCIAL HISTORY: Smoked for many years, stopped couple of years ago. Denies any use alcohol or drug abuse. She lives with the family and she is able to ambulate with a walker for a short distance. FAMILY HISTORY: Positive for hypertension and heart disease. REVIEW OF SYMPTOMS: MUSCULOSKELETAL: Complains of pain in the right hip and right femur. GASTROINTESTINAL: No nausea or vomiting. NEUROLOGICAL: Slight weakness in the right leg and otherwise negative. PHYSICAL EXAMINATION: GENERAL: The patient is not in any distress. VITAL SIGNS: Temperature 98, pulse 85, respirations 16, blood pressure 100/55 and 96% on room air. HEENT: Head is atraumatic. Pupils equal. Oral cavity, dentures. NECK: Supple. Thyroid not enlarged, JVD not elevated. CHEST: Symmetrical, COPD pattern. CARDIOVASCULAR: S1, S2 regular. LUNGS: Clear to auscultation. No wheezing. EXTREMITIES: The patient has contractures of the right upper extremity, flexion at the elbow and at the wrist, and also extension and contraction of the right lower leg, has chronic venous stasis dermatitis with venous stasis right leg pain, but is able to lift a little bit up off the bed. ABDOMEN: Soft. No mass palpable. EXTERNAL GENITALIA: No Curry present. NEUROLOGICAL: Left leg, able to move. No pain over the right hip area. LABORATORY DATA: Shows a white count 2.5, hemoglobin 9.6, and platelets 180. Electrolytes show sodium 143, potassium 3.5, chloride 105, bicarbonate 31, BUN 14, creatinine 1.6, glucose 122. INR was 3. Had an MRI of the brain was negative. CT negative. X-ray of the hip was negative. FINAL IMPRESSION: 1. Mechanical fall at home. 2. Right hip and thigh pain. 3. History of previous strokes with right hemiparesis. 4. Chronic atrial fibrillation, on Coumadin and Multaq. 5. Hypertension. 6. Hyperlipidemia. 7. Chronic Renal failure stage 3. 8. Chronic obstructive pulmonary disease, stable. PLAN: At this time admitted for pain control. MRI was done no ac cva. We will get PT, OT rehabilitation probably can go back to home in1-2 days. The patient does not want to go to [facility]. ELYSSA CHU MD DR: [email or web address]/humza JOB#: [id number] / [id number] ONEL
[2017-03-31] MEDS: WARFARIN 3 MG TABLET. PO SCH (16:09)
[2017-03-31 19:25] VITALS: BP 107/49
[2017-03-31] MEDS: ATORVASTATIN CALCIUM 10 MG TABLET. PO SCH (21:45)
[2017-03-31] MEDS: BACLOFEN 10 MG TABLET. PO SCH (21:45)
[2017-03-31 23:00] VITALS: BP 114/61
[2017-04-01 03:20] VITALS: BP 120/60
[2017-04-01 07:00] VITALS: BP 118/60
[2017-04-01] MEDS: IPRATRPIUM/ALBUTEROL 0.5/2.5MG 3 ML NEBU. NEB SCH ×4 (07:29→19:56)
[2017-04-01] MEDS: PANTOPRAZOLE 40 MG TABLET.DR. PO SCH (09:14)
[2017-04-01] MEDS: POTASSIUM CHLORIDE 10 MEQ TABLET.ER. PO SCH ×2 (09:15→17:24)
[2017-04-01] MEDS: DIGOXIN 125 MCG TABLET. PO SCH (09:15)
[2017-04-01] MEDS: LISINOPRIL 10 MG TABLET PO SCH (09:15)
[2017-04-01] MEDS: CHOLECALCIFEROL (VITAMIN D3) 1,000 UNIT TABLET PO SCH (09:16)
[2017-04-01] MEDS: amLODIPine BESYLATE 10 MG TABLET PO SCH (09:16)
[2017-04-01] MEDS: FUROSEMIDE 20 MG TABLET PO SCH (09:17)
[2017-04-01] MEDS: FERROUS SULFATE 325 MG TABLET. PO SCH (09:17)
[2017-04-01] MEDS: predniSONE 20 MG TABLET PO SCH (09:23)
--- NOTE | 2017-04-01 10:06 | PDOC ---
PROGRESS NOTES Subjective Subjective feels better ,wanting to go home Objective Objective Vital Signs Date Time Temp Pulse Resp B/P (MAP) Pulse Ox O2 Delivery O2 Flow Rate FiO2 04/01/17 09:16 54 118/60 04/01/17 08:00 Room Air 04/01/17 07:31 98 04/01/17 07:00 98.3 16 98.3 Intake and Output 04/01/17 07:00 Intake Total 1200 ml Output Total 300 ml Balance 900 ml Intake Oral 1200 ml Output Urine Total 300 ml # Voids 3 # Bowel Movements 1 Physical Exam Abdomen: Normal bowel sounds, Soft Heart: Regular rate, Normal S1, Normal S2 Extremities: No clubbing General: Alert HEENT: Atraumatic Lungs: Clear to auscultation MUSCULOSKELETAL: Osteoarthritic changes both hands Neck: Supple Neuro: Normal speech Psych/Mental Status: Mental status NL Skin: No breakdown COMMENT rt side contractures from old cva Diagnosis Problem List Problems Medical Problems: (1) Acute right-sided weakness Status: Acute Assessment Assessment Problems Medical Problems: (1) Acute right-sided weakness Status: Acute FINAL IMPRESSION: 1. Mechanical fall at home. 2. Right hip and thigh pain. 3. History of previous strokes with right hemiparesis. 4. Chronic atrial fibrillation, on Coumadin and Multaq. 5. Hypertension. 6. Hyperlipidemia. 7. Chronic Renal failure stage 3. 8. Chronic obstructive pulmonary disease, stable. PLAN: spoke with sister at bed side. doing well today ,no pain d/c back home with home health. rehab consult. At this time admitted for pain control. MRI was done no ac cva. We will get PT, OT rehabilitation probably can go back to home in1-2 days. The patient does not want to go to [facility]nu. Problems: Plan Plan of Care Problems Medical Problems: (1) Acute right-sided weakness Status: Acute Comment Review of Relevant I have reviewed the following items miriam (where applicable) has been applied. Medications Current Medications Warfarin Sodium (Coumadin) 3 mg DAILY16 PO Last administered on 03/31/17t 16:09 ; Start 03/31/17 at 16:00 Vitals/I & O Vital Sign - Last 24 Hours 03/31/17 03/31/17 03/31/17 03/31/17 11:00 11:55 11:59 12:40 Temp 98.6 98.6 Pulse 60 85 Resp 16 16 B/P (MAP) 110/54 (72) 100/55 Pulse Ox 96 O2 Delivery Room Air Room Air Room Air 03/31/17 03/31/17 03/31/17 03/31/17 15:00 16:11 16:14 19:25 Temp 98.4 99.0 98.4 99.0 Pulse 72 72 70 Resp 16 20 B/P (MAP) 112/60 (77) 112/60 107/49 (68) Pulse Ox 72 100 O2 Delivery Room Air Room Air Room Air 03/31/17 03/31/17 03/31/17 04/01/17 20:00 20:20 23:00 03:20 Temp 98.7 98.2 98.7 98.2 Pulse 62 51 Resp 18 16 B/P (MAP) 114/61 (78) 120/60 (80) Pulse Ox 99 97 O2 Delivery Room Air Room Air Room Air 04/01/17 04/01/17 04/01/17 04/01/17 07:00 07:31 08:00 09:15 Temp 98.3 98.3 Pulse 54 54 Resp 16 B/P (MAP) 118/60 (79) 118/60 Pulse Ox 99 98 O2 Delivery Room Air Room Air Room Air 04/01/17 04/01/17 09:15 09:16 Pulse 54 54 B/P (MAP) 118/60 118/60 Intake and Output 03/31/17 03/31/17 04/01/17 15:00 23:00 07:00 Intake Total 720 ml 480 ml Output Total 300 ml Balance 720 ml 180 ml ELYSSA CHU MD April 01, 2017 10:06
[2017-04-01 10:39] VITALS: BP 128/54
[2017-04-01] MEDS: DRONEDARONE HCL 400 MG TABLET PO SCH ×2 (11:46→17:23)
--- NOTE | 2017-04-01 13:40 | PDOC ---
PROGRESS NOTES Assessment Assessment Metabolic encephalopathy. Right side weakness. Fall, hurt right side UE and LE. 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 CHF HTN HLD Aortic A disease. Dementia features. No evidence of acute CVA this time. RECOMMENDATIONS/PLAN: MRI w/o contrast performed. She has been treated with Coumadin. Continue Lipitor 10 mg HS. Treat medical diseases, OT/PT. FU with PCP. MRI w/o contrast 03/30/17: No acute CVA. Fasting lipids tested in 01/25. Echo performed in 01/25. Carotid A US + Doppler perform in 01/25. HISTORY OF THE PRESENT ILLNESS: 86-y-old female patient with above medical diseases had old CVA with right side hemiplegia and spasm. She had a fall down on her right side at home and her right side hemiplegia became worse to be brought to [facility]. CT and MRI were performed and acute CVA which showed no acute CVA this time. She stated she felt better on 04/01. PAST MEDICAL HISTORY: Please see above. PAST SURGERY HISTORY: No major surgery recently. ALLERGY: Unknown MEDICATIONS: Refer to [facility] HISTORY: Non contributory. SOCIAL HISTORY: Lives at home.. Denies current smoking, drinking, and illicit drug use. REVIEW OF SYSTEMS: Constitutional: No malnutrition, weight loss, cachexia. Head: No traumatic brain or head injury. Skin: No edema, or rash. Ear: No infection, tinnitus. Eyes: No vision loss or color blindness. Nose: No bleeding or purulent discharges. Hearing: Hearing decrease. Neck: No injury. Breast: No history of cancer, masses,or discharges. Cardiac: CHF, HTN, HLD. Pulmonary: No COPD. GI: No GI ulcer, GI bleeding. Urinary/genital: UTI. Endocrinologic: No cousin face, craniofacial dysmorphism, polydactyly. Skeletomuscular: Generalized weakness. Neurological: see HP. Psychiatric: Denies drug use/abuse. Otherwise, not [id number] review of systems. PHYSICAL EXAMINATION: General appearance is in no acute distress. HEENT: Normocephalic and nontraumatic. Eyes, nose, ears, and throat are unremarkable. Neck is supple. No lymphadenopathy. No crepitus. Cardiovascular: S1, S2, seemed regular rate and rhythm. Pulmonary: Clear to auscultation bilaterally. Abdomen: Bowel sounds are positive. Abdomen is soft, nontender, and nondistended. Extremities: No rash, lesions, or edema. No restriction of range of motion NEUROLOGICAL EXAMINATION: Awake. Oriented partially to place and person, but not to time. PERRL. EOMI. CN: no focal findings. Muscle tone: within normal in left side, significantly increased in right side especially right UE. Muscle strength: 3+ right UE and LE, 4+ left side. DTR: 2 Plantar reflex: Neutral response bilaterally Gait: she walks with a walker as her baseline. Sensory exam: no acute abnormal findings. No acute cerebellar signs. F-T-N fine on left side. Objective Objective Vital Signs Date Time Temp Pulse Resp B/P (MAP) Pulse Ox O2 Delivery O2 Flow Rate FiO2 04/01/17 11:46 54 124/54 04/01/17 11:29 Room Air 04/01/17 10:39 98.2 16 98 98.2 Intake and Output 04/01/17 06:59 Intake Total 1200 ml Output Total 300 ml Balance 900 ml Intake Oral 1200 ml Output Urine Total 300 ml # Voids 3 # Bowel Movements 1 Vitals Signs Vitals VS - Last 72 Hours, by Label Date Time Temp Pulse Resp B/P (MAP) Pulse Ox O2 Delivery O2 Flow Rate FiO2 04/01/17 11:46 54 124/54 04/01/17 11:29 Room Air 04/01/17 10:39 98.2 54 16 128/54 (78) 98 Room Air 98.2 04/01/17 09:16 54 118/60 04/01/17 09:15 54 118/60 04/01/17 09:15 54 118/60 04/01/17 08:00 Room Air 04/01/17 07:31 98 Room Air 04/01/17 07:00 98.3 54 16 118/60 (79) 99 Room Air 98.3 04/01/17 03:20 98.2 51 16 120/60 (80) 97 Room Air 98.2 03/31/17 23:00 98.7 62 18 114/61 (78) 99 98.7 03/31/17 20:20 Room Air 03/31/17 20:00 Room Air 03/31/17 19:25 99.0 70 20 107/49 (68) 100 Room Air 99.0 03/31/17 16:14 Room Air 03/31/17 16:11 72 112/60 03/31/17 15:00 98.4 72 16 112/60 (77) 72 Room Air 98.4 03/31/17 12:40 16 Room Air 03/31/17 11:59 Room Air 03/31/17 11:55 85 100/55 03/31/17 11:00 98.6 60 16 110/54 (72) 96 Room Air 98.6 03/31/17 09:00 99 Room Air 03/31/17 08:40 20 Room Air 03/31/17 08:38 85 100/55 03/31/17 08:37 85 100/55 03/31/17 08:35 85 03/31/17 08:00 Room Air 03/31/17 07:00 98.1 85 16 100/55 (70) 96 Room Air 98.1 Medication Medications Current Medications Warfarin Sodium (Coumadin) 3 mg DAILY16 PO Last administered on 03/31/17t 16:09 ; Start 03/31/17 at 16:00 Comment Review of Relevant I have reviewed the following items miriam (where applicable) has been applied. KEILA DESIR MD April 01, 2017 13:40
[2017-04-01 14:47] VITALS: BP 120/57
[2017-04-01] MEDS: WARFARIN 3 MG TABLET. PO SCH (17:23)
[2017-04-01 19:00] VITALS: BP 120/61
[2017-04-01] MEDS: ATORVASTATIN CALCIUM 10 MG TABLET. PO SCH (20:52)
[2017-04-01] MEDS: BACLOFEN 10 MG TABLET. PO SCH (20:52)
[2017-04-01 23:00] VITALS: BP 105/53
[2017-04-02 03:00] VITALS: BP 123/54
[2017-04-02 03:58] LABS: INR 2.8 (0.8-1.1); PROTHROMBIN TIME PATIENT 27.8 SEC (11.7-14.0)
[2017-04-02 07:05] VITALS: BP 128/66
[2017-04-02] MEDS: IPRATRPIUM/ALBUTEROL 0.5/2.5MG 3 ML NEBU. NEB SCH ×2 (07:25→11:39)
[2017-04-02] MEDS: predniSONE 20 MG TABLET PO SCH (09:26)
[2017-04-02] MEDS: CHOLECALCIFEROL (VITAMIN D3) 1,000 UNIT TABLET PO SCH (09:26)
[2017-04-02] MEDS: PANTOPRAZOLE 40 MG TABLET.DR. PO SCH (09:28)
[2017-04-02] MEDS: POTASSIUM CHLORIDE 10 MEQ TABLET.ER. PO SCH (09:28)
[2017-04-02] MEDS: FERROUS SULFATE 325 MG TABLET. PO SCH (09:28)
[2017-04-02] MEDS: FUROSEMIDE 20 MG TABLET PO SCH (09:28)
--- NOTE | 2017-04-02 10:40 | PDOC ---
PROGRESS NOTES Subjective Subjective pt want to go to [facility] ,instead of home Objective Objective Vital Signs Date Time Temp Pulse Resp B/P (MAP) Pulse Ox O2 Delivery O2 Flow Rate FiO2 04/02/17 08:10 Room Air 04/02/17 07:27 98 04/02/17 07:05 98.3 47 16 128/66 (86) 98.3 Intake and Output 04/02/17 07:00 Intake Total 455 ml Output Total 1 ml Balance 454 ml Intake Oral 455 ml Urine/Stool Mix 1 ml # Voids 9 Physical Exam Abdomen: Normal bowel sounds, Soft Heart: Regular rate, Normal S1, Normal S2 Extremities: No clubbing General: Alert HEENT: Atraumatic Lungs: Clear to auscultation MUSCULOSKELETAL: Osteoarthritic changes both hands Neck: Supple Neuro: Normal speech Psych/Mental Status: Mental status NL Skin: No breakdown COMMENT rt side contractures from old cva Diagnosis Problem List Problems Medical Problems: (1) Acute right-sided weakness Status: Acute Assessment Assessment Problems Medical Problems: (1) Acute right-sided weakness Status: Acute FINAL IMPRESSION: 1. Mechanical fall at home. 2. Right hip and thigh pain. 3. History of previous strokes with right hemiparesis. 4. Chronic atrial fibrillation, on Coumadin and Multaq. 5. Hypertension. 6. Hyperlipidemia. 7. Chronic Renal failure stage 3. 8. Chronic obstructive pulmonary disease, stable. PLAN:d/c to [facility] today spoke with sister at bed side yesterday. doing well today ,no pain pt/ot rehab consult. At this time admitted for pain control. MRI was done no ac cva. We will get PT, OT rehabilitation probably can go back to home in1-2 days. Problems: Plan Plan of Care Problems Medical Problems: (1) Acute right-sided weakness Status: Acute Comment Review of Relevant I have reviewed the following items miriam (where applicable) has been applied. Labs Laboratory Tests Test 04/02/17 03:40 Prothrombin Time 27.8 SEC (11.7-14.0) Prothromb Time International Ratio 2.8 (0.8-1.1) Vitals/I & O Vital Sign - Last 24 Hours 04/01/17 04/01/17 04/01/17 04/01/17 11:29 11:46 14:47 15:29 Temp 98.9 98.9 Pulse 54 67 Resp 16 B/P (MAP) 124/54 120/57 (78) Pulse Ox 98 O2 Delivery Room Air Room Air Room Air 04/01/17 04/01/17 04/01/17 04/01/17 17:23 19:00 19:56 20:00 Temp 98.9 98.9 Pulse 67 62 Resp 18 B/P (MAP) 120/57 120/61 (80) Pulse Ox 94 97 O2 Delivery Room Air Room Air 04/01/17 04/02/17 04/02/17 04/02/17 23:00 03:00 07:05 07:27 Temp 98.8 98.5 98.3 98.8 98.5 98.3 Pulse 61 52 47 Resp 16 16 16 B/P (MAP) 105/53 (70) 123/54 (77) 128/66 (86) Pulse Ox 97 94 93 98 O2 Delivery Room Air Room Air 04/02/17 08:10 O2 Delivery Room Air Intake and Output 04/01/17 04/01/17 04/02/17 15:00 23:00 07:00 Intake Total 45 ml 390 ml 20 ml Output Total 1 ml Balance 45 ml 389 ml 20 ml ELYSSA CHU MD April 02, 2017 10:40
[2017-04-02 10:48] VITALS: BP 128/67
--- NOTE | 2017-04-02 13:27 | PDOC ---
PROGRESS NOTES Assessment Assessment Metabolic encephalopathy. Right side weakness. Fall, hurt right side UE and LE. 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 CHF HTN HLD Aortic A disease. Dementia features. No evidence of acute CVA this time. RECOMMENDATIONS/PLAN: She has been treated with Coumadin. Continue Lipitor 10 mg HS. Treat medical diseases, OT/PT. FU with PCP. MRI w/o contrast 03/30/17: No acute CVA. Fasting lipids tested in 01/25. Echo performed in 01/25. Carotid A US + Doppler perform in 01/25. HISTORY OF THE PRESENT ILLNESS: 86-y-old female patient with above medical diseases had old CVA with right side hemiplegia and spasm. She had a fall down on her right side at home and her right side hemiplegia became worse to be brought to [facility]. CT and MRI were performed and acute CVA which showed no acute CVA this time. She stated she felt better on 04/02. PAST MEDICAL HISTORY: Please see above. PAST SURGERY HISTORY: No major surgery recently. ALLERGY: Unknown MEDICATIONS: Refer to [facility] HISTORY: Non contributory. SOCIAL HISTORY: Lives at home.. Denies current smoking, drinking, and illicit drug use. REVIEW OF SYSTEMS: Constitutional: No malnutrition, weight loss, cachexia. Head: No traumatic brain or head injury. Skin: No edema, or rash. Ear: No infection, tinnitus. Eyes: No vision loss or color blindness. Nose: No bleeding or purulent discharges. Hearing: Hearing decrease. Neck: No injury. Breast: No history of cancer, masses,or discharges. Cardiac: CHF, HTN, HLD. Pulmonary: No COPD. GI: No GI ulcer, GI bleeding. Urinary/genital: UTI. Endocrinologic: No cousin face, craniofacial dysmorphism, polydactyly. Skeletomuscular: Generalized weakness. Neurological: see HP. Psychiatric: Denies drug use/abuse. Otherwise, not [id number] review of systems. PHYSICAL EXAMINATION: General appearance is in no acute distress. HEENT: Normocephalic and nontraumatic. Eyes, nose, ears, and throat are unremarkable. Neck is supple. No lymphadenopathy. No crepitus. Cardiovascular: S1, S2, seemed regular rate and rhythm. Pulmonary: Clear to auscultation bilaterally. Abdomen: Bowel sounds are positive. Abdomen is soft, nontender, and nondistended. Extremities: No rash, lesions, or edema. No restriction of range of motion NEUROLOGICAL EXAMINATION: Awake. Sitting in chair. Oriented to place and person, but not to time. PERRL. EOMI. CN: no focal findings. Muscle tone: within normal in left side, significantly increased in right side especially right UE. Muscle strength: 3+ right UE and LE, 4+ left side. DTR: 2 Plantar reflex: Neutral response bilaterally Gait: she is able to walk with a walker slowly as her baseline. Sensory exam: no acute abnormal findings. No acute cerebellar signs. F-T-N fine on left side. Objective Objective Vital Signs Date Time Temp Pulse Resp B/P (MAP) Pulse Ox O2 Delivery O2 Flow Rate FiO2 04/02/17 11:39 Room Air 04/02/17 10:48 98.7 60 16 128/67 (87) 99 98.7 Intake and Output 04/02/17 07:00 Intake Total 455 ml Output Total 1 ml Balance 454 ml Intake Oral 455 ml Urine/Stool Mix 1 ml # Voids 9 Vitals Signs Vitals VS - Last 72 Hours, by Label Date Time Temp Pulse Resp B/P (MAP) Pulse Ox O2 Delivery O2 Flow Rate FiO2 04/02/17 11:39 Room Air 04/02/17 10:48 98.7 60 16 128/67 (87) 99 Room Air 98.7 04/02/17 08:10 Room Air 04/02/17 07:27 98 Room Air 04/02/17 07:05 98.3 47 16 128/66 (86) 93 Room Air 98.3 04/02/17 03:00 98.5 52 16 123/54 (77) 94 98.5 04/01/17 23:00 98.8 61 16 105/53 (70) 97 98.8 04/01/17 20:00 Room Air 04/01/17 19:56 97 Room Air 04/01/17 19:00 98.9 62 18 120/61 (80) 94 98.9 04/01/17 17:23 67 120/57 04/01/17 15:29 Room Air 04/01/17 14:47 98.9 67 16 120/57 (78) 98 Room Air 98.9 04/01/17 11:46 54 124/54 04/01/17 11:29 Room Air 04/01/17 10:39 98.2 54 16 128/54 (78) 98 Room Air 98.2 04/01/17 09:16 54 118/60 04/01/17 09:15 54 118/60 04/01/17 09:15 54 118/60 04/01/17 08:00 Room Air 04/01/17 07:31 98 Room Air 04/01/17 07:00 98.3 54 16 118/60 (79) 99 Room Air 98.3 Laboratory Laboratory Laboratory Tests Test 04/02/17 03:40 Prothrombin Time 27.8 SEC (11.7-14.0) Prothromb Time International Ratio 2.8 (0.8-1.1) Comment Review of Relevant I have reviewed the following items miriam (where applicable) has been applied. KEILA DESIR MD April 02, 2017 13:27
== END 2017-04-02 13:50 | DRG 913 ==
LOC: ER 16:03 → 5 SOUTH 17:00
PROVIDERS: ADMIT Internal Medicine; ATTEND Internal Medicine
DX: S89.91XA Unspecified injury of right lower leg, initial encounter (principal); G93.41 Metabolic encephalopathy; I50.30 Unspecified diastolic (congestive) heart failure; I13.0 Hypertensive heart and chronic kidney disease with heart failure and stage 1 through stage 4 chronic kidney disease, or unspecified chronic kidney disease; I69.351 Hemiplegia and hemiparesis following cerebral infarction affecting right dominant side; M25.551 Pain in right hip; E78.5 Hyperlipidemia, unspecified; N18.3 Chronic kidney disease, stage 3 (moderate); J44.9 Chronic obstructive pulmonary disease, unspecified; F03.90 Unspecified dementia, unspecified severity, without behavioral disturbance, psychotic disturbance, mood disturbance, and anxiety; I48.2 Chronic atrial fibrillation; Z96.659 Presence of unspecified artificial knee joint; W19.XXXA Unspecified fall, initial encounter; Y93.89 Activity, other specified; E78.00 Pure hypercholesterolemia, unspecified; Z82.49 Family history of ischemic heart disease and other diseases of the circulatory system; Z79.899 Other long term (current) drug therapy; Z79.01 Long term (current) use of anticoagulants; Y99.8 Other external cause status; Y92.009 Unspecified place in unspecified non-institutional (private) residence as the place of occurrence of the external cause; Z98.42 Cataract extraction status, left eye; Z98.41 Cataract extraction status, right eye; Z88.0 Allergy status to penicillin; Z86.73 Personal history of transient ischemic attack (TIA), and cerebral infarction without residual deficits; M79.651 Pain in right thigh; S49.91XA Unspecified injury of right shoulder and upper arm, initial encounter
CPT/HCPCS: 36415; 70450; 70551; 73502; 80048; 85027; 85610; 85730; 93005; 94640; 94760; J7512; J7620; 97110; 97530